=== PATIENT | male | born 1940 | race Caucasian/White ===

== ENCOUNTER → 2019-11-06 | Outpatient (CLI) | payer MEDICARE ==
[2019-11-06 10:20] LABS: HCT 46.8 % (39.0-53.0); HGB 15.5 gm/dL (13.0-17.5); MCH 31.3 pg (25.0-35.0); MCV 94.7 fL (80.0-100.0); Mean Platelet Volume 7.8; Platelet Count 229 k/uL (150-450); RBC 4.94 m/uL (4.30-5.90); RDW 12.3 % (11.5-15.5); WBC 10.1 k/uL (3.8-10.6)
[2019-11-06 10:29] LABS: Potassium 4.2 mmol/L (3.5-5.1)
== END | disposition home or self-care (01) ==
LOC: LABWHC1 09:45
PROVIDERS: ATTEND Internal Medicine Cardiovascular Disease
DX: R55 Syncope and collapse (principal)
CPT/HCPCS: 36415; 80051; 82565; 84520; 85027

== ENCOUNTER 2021-01-20 14:24 | Inpatient (IN) | payer MEDICARE ==
[2021-01-20] MEDS ORDERED: ALBUTEROL HFA INHALER INHALATION STA (14:53)
--- NOTE | 2021-01-20 15:03 | ED ---
SOB HPI - General Chief Complaint: Shortness of Breath Stated Complaint: Covid+, SOB, fall Time Seen by Provider: 01/20/21 14:24 Source: patient, EMS, RN notes reviewed, old records reviewed Mode of arrival: EMS - History of Present Illness Initial Comments: This is a 80-year-old male was brought in by EMS after suffering a syncopal episode in the bathroom today he apparently was short of breath he was swabbed last Monday 5 days ago and get results of being Covid positive yesterday. He was brought in by EMS with a cervical collar he denies any head neck or back pain a loss of function is upper or lower extremities he is feeling somewhat short of breath he has no history of asthma or COPD. No heart disease reported. MD Complaint: shortness of breath - Related Data Home Medications Medication Instructions Recorded Confirmed Albuterol Inhaler [Ventolin Hfa 2 puff INHALATION RT-QID PRN 01/20/21 01/20/21 Inhaler] Apixaban [Eliquis] 2.5 mg PO BID 01/20/21 01/20/21 Aspirin EC [Ecotrin Low Dose] 81 mg PO HS 01/20/21 01/20/21 Azithromycin [Zithromax Z-pack (6 See Taper PO DAILY 01/20/21 01/20/21 tabs)] Benzonatate [Tessalon Perles] 100 mg PO TID PRN 01/20/21 01/20/21 Latanoprost [Xalatan 0.005%] 1 drop BOTH EYES HS 01/20/21 01/20/21 Multivitamins, Thera [Multivitamin 1 tab PO DAILY 01/20/21 01/20/21 (formulary)] Valsartan [Diovan] 80 mg PO DAILY 01/20/21 01/20/21 Allergies Allergy/AdvReac Type Severity Reaction Status Date / Time No Known Allergies Allergy Verified 01/20/21 15:47 Review of Systems ROS Statement: Those systems with pertinent positive or pertinent negative responses have been documented in the HPI. ROS Other: All systems not noted in ROS Statement are negative. Past Medical History Past Medical History: No Reported History History of Any Multi-Drug Resistant Organisms: None Reported Past Surgical History: Hernia Repair Additional Past Surgical History / Comment(s): abdominal surgery 6 years ago. Past Psychological History: No Psychological Hx Reported Smoking Status: Former smoker Past Alcohol Use History: Daily Past Drug Use History: None Reported General Exam - General Exam Comments Initial Comments: This is a well-developed well-nourished awake alert oriented 3 male Sonu Coma Scale of 15 General appearance: alert, anxious Head exam: Present: atraumatic, normocephalic, normal inspection Eye exam: Present: normal appearance, PERRL, EOMI. Absent: scleral icterus, conjunctival injection, periorbital swelling ENT exam: Present: normal exam, mucous membranes moist Neck exam: Present: normal inspection, full ROM, other (No suture repair. Cervical collar was removed). Absent: tenderness, meningismus, lymphadenopathy Respiratory exam: Present: wheezes, decreased breath sounds. Absent: respirator y distress, rales, rhonchi, stridor Cardiovascular Exam: Present: regular rate, normal rhythm, normal heart sounds. Absent: systolic murmur, diastolic murmur, rubs, gallop, clicks GI/Abdominal exam: Present: soft, normal bowel sounds. Absent: distended, tenderness, guarding, rebound, rigid Extremities exam: Present: normal inspection, full ROM, normal capillary refill. Absent: tenderness, pedal edema, joint swelling, calf tenderness Back exam: Present: normal inspection Neurological exam: Present: alert, oriented X3, CN II-XII intact Psychiatric exam: Present: normal affect, normal mood Skin exam: Present: warm, dry, intact, normal color. Absent: rash Course Vital Signs 01/20/21 14:28 Temperature 100.9 F H Pulse Rate 95 Respiratory 18 Rate Blood Pressure 114/64 O2 Sat by Pulse 98 Oximetry Medical Decision Making - Medical Decision Making I did discuss the findings with the patient and with Dr. Rodriguez the patient will be admitted - Lab Data Result diagrams: 01/20/21 15:11 01/20/21 15:11 Lab Results 01/20/21 01/20/21 01/20/21 Range/Units 15:11 15:11 15:11 WBC 6.3 (3.8-10.6) k/uL RBC 4.41 (4.30-5.90) m/uL Hgb 13.6 (13.0-17.5) gm/dL Hct 38.3 L (39.0-53.0) % MCV 86.8 (80.0-100.0) fL MCH 30.8 (25.0-35.0) pg MCHC 35.4 (31.0-37.0) g/dL RDW 12.5 (11.5-15.5) % Plt Count 148 L (150-450) k/uL MPV 7.4 Neutrophils % 70 % Lymphocytes % 22 % Monocytes % 4 % Eosinophils % 0 % Basophils % 0 % Neutrophils # 4.4 (1.3-7.7) k/uL Lymphocytes # 1.4 (1.0-4.8) k/uL Monocytes # 0.2 (0-1.0) k/uL Eosinophils # 0.0 (0-0.7) k/uL Basophils # 0.0 (0-0.2) k/uL PT 11.3 (9.0-12.0) sec INR 1.1 (<1.2) APTT 26.0 (22.0-30.0) sec D-Dimer 0.26 (<0.60) mg/L FEU Sodium 118 L* (137-145) mmol/L Potassium 4.5 (3.5-5.1) mmol/L Chloride 87 L (98-107) mmol/L Carbon Dioxide 21 L (22-30) mmol/L Anion Gap 10 mmol/L BUN 15 (9-20) mg/dL Creatinine 0.72 (0.66-1.25) mg/dL Est GFR (CKD-EPI)AfAm >90 (>60 ml/min/1.73 sqM) Est GFR (CKD-EPI)NonAf 87 (>60 ml/min/1.73 sqM) Glucose 124 H (74-99) mg/dL Plasma Lactic Acid Leif (0.7-2.0) mmol/L Calcium 7.6 L (8.4-10.2) mg/dL Magnesium 1.4 L (1.6-2.3) mg/dL Total Bilirubin 0.8 (0.2-1.3) mg/dL AST 59 (17-59) U/L ALT 30 (4-49) U/L Alkaline Phosphatase 77 (38-126) U/L Lactate Dehydrogenase 672 H (313-618) U/L Creatine Kinase 504 H (55-170) U/L Troponin I (0.000-0.034) ng/mL C-Reactive Protein 31.8 H (<10.0) mg/L NT-Pro-B Natriuret Pep pg/mL Total Protein 6.5 (6.3-8.2) g/dL Albumin 3.8 (3.5-5.0) g/dL 01/20/21 01/20/21 01/20/21 Range/Units 15:11 15:11 15:11 WBC (3.8-10.6) k/uL RBC (4.30-5.90) m/uL Hgb (13.0-17.5) gm/dL Hct (39.0-53.0) % MCV (80.0-100.0) fL MCH (25.0-35.0) pg MCHC (31.0-37.0) g/dL RDW (11.5-15.5) % Plt Count (150-450) k/uL MPV Neutrophils % % Lymphocytes % % Monocytes % % Eosinophils % % Basophils % % Neutrophils # (1.3-7.7) k/uL Lymphocytes # (1.0-4.8) k/uL Monocytes # (0-1.0) k/uL Eosinophils # (0-0.7) k/uL Basophils # (0-0.2) k/uL PT (9.0-12.0) sec INR (<1.2) APTT (22.0-30.0) sec D-Dimer (<0.60) mg/L FEU Sodium (137-145) mmol/L Potassium (3.5-5.1) mmol/L Chloride (98-107) mmol/L Carbon Dioxide (22-30) mmol/L Anion Gap mmol/L BUN (9-20) mg/dL Creatinine (0.66-1.25) mg/dL Est GFR (CKD-EPI)AfAm (>60 ml/min/1.73 sqM) Est GFR (CKD-EPI)NonAf (>60 ml/min/1.73 sqM) Glucose (74-99) mg/dL Plasma Lactic Acid Leif 1.1 (0.7-2.0) mmol/L Calcium (8.4-10.2) mg/dL Magnesium (1.6-2.3) mg/dL Total Bilirubin (0.2-1.3) mg/dL AST (17-59) U/L ALT (4-49) U/L Alkaline Phosphatase (38-126) U/L Lactate Dehydrogenase (313-618) U/L Creatine Kinase (55-170) U/L Troponin I 0.012 (0.000-0.034) ng/mL C-Reactive Protein (<10.0) mg/L NT-Pro-B Natriuret Pep 737 pg/mL Total Protein (6.3-8.2) g/dL Albumin (3.5-5.0) g/dL - EKG Data -: EKG Interpreted by Me EKG Comments: Atrial fibrillation rate of 96 QRS 88 QT since QTC 342/[address]-T wave changes - Radiology Data Radiology results: report reviewed, image reviewed Disposition Clinical Impression: COVID-19, Hyponatremia syndrome, Febrile illness, acute, Chronic a-fib Disposition: ADMITTED IP TO THIS [facility] Condition: Fair Referrals: Paige Lo MD [Primary Care Provider] - 1-2 days
[2021-01-20 15:21] LABS: Basophils % (A) 0 %; Eosinophils % (A) 0 %; HCT 38.3 % (39.0-53.0); HGB 13.6 gm/dL (13.0-17.5); Lymphocytes # (A) 1.4 k/uL (1.0-4.8); Lymphocytes % (A) 22 %; MCH 30.8 pg (25.0-35.0); MCHC 35.4 g/dL (31.0-37.0); MCV 86.8 fL (80.0-100.0); Mean Platelet Volume 7.4; Monocytes # (A) 0.2 k/uL (0-1.0); Monocytes % (A) 4 %; Neutrophils # (A) 4.4 k/uL (1.3-7.7); Neutrophils % (A) 70 %; Platelet Count 148 k/uL (150-450); RBC 4.41 m/uL (4.30-5.90); RDW 12.5 % (11.5-15.5); WBC 6.3 k/uL (3.8-10.6)
[2021-01-20 15:31] LABS: ALT 30 U/L (4-49); AST 59 U/L (17-59); African American GFR (CKD) >90 (>60 ml/min/1.73 sqM); Albumin 3.8 g/dL (3.5-5.0); Alkaline Phosphatase 77 U/L (38-126); Anion Gap 10 mmol/L; Blood Urea Nitrogen 15 mg/dL (9-20); C Reactive Protein 31.8 mg/L (<10.0); Calcium 7.6 mg/dL (8.4-10.2); Carbon Dioxide 21 mmol/L (22-30); Chloride 87 mmol/L (98-107); Creatine Kinase 504 U/L (55-170); Glucose 124 mg/dL (74-99); LDH 672 U/L (313-618); Magnesium 1.4 mg/dL (1.6-2.3); Non-African American GFR(CKD) 87 (>60 ml/min/1.73 sqM); Potassium 4.5 mmol/L (3.5-5.1); Total Bilirubin 0.8 mg/dL (0.2-1.3); Total Protein 6.5 g/dL (6.3-8.2)
[2021-01-20 15:33] LABS: Sodium 118 mmol/L (137-145)
--- NOTE | 2021-01-20 15:33 | XR ---
EXAMINATION TYPE: XR chest 1V portable DATE OF EXAM: 01/20/2021 HISTORY: Shortness of breath. COMPARISON: None. TECHNIQUE: Single view of the chest is submitted. FINDINGS: Demonstrated are scattered senescent parenchymal change. Patchy perihilar and basilar infiltrates are suspicious for Covid 19 pneumonia. The heart is stable. Hilar and mediastinal structures are within normal limits. Degenerative changes are seen of the dorsal spine. IMPRESSION: 1. Patchy perihilar and basilar infiltrates are suspicious for Covid 19 pneumonia.
[2021-01-20 15:48] LABS: D-Dimer 0.26 mg/L FEU (<0.60); INR 1.1 (<1.2); Prothrombin Time 11.3 sec (9.0-12.0)
[2021-01-20] MEDS ORDERED: SODIUM CHLORIDE 0.9% 1,000 ML IV STA (16:02)
[2021-01-20] MEDS ORDERED: NALOXONE 0.4 MG/ML 1 ML VIAL IV PRN (17:32)
[2021-01-20] MEDS ORDERED: SODIUM CHLORIDE 0.9% 1,000 ML IV SCH (17:45)
--- NOTE | 2021-01-20 18:49 | CT ---
EXAMINATION TYPE: CT brain aron murry con DATE OF EXAM: 01/20/2021 COMPARISON: None HISTORY: Fall injury CT DLP: 1447.7 mGycm Automated exposure control for dose reduction was used. Images obtained of the brain and cervical spine without contrast. There is no mass effect nor midline shift. There is no sign of intracranial hemorrhage. There is some mild hypodensity in the periventricular white matter. The calvarium is intact. Skull base is intact. There is normal aeration of the mastoid sinuses. There is fairly normal alignment of the cervical vertebra. There is disc space narrowing at C5-6 and C6-7 with spurring of the endplates. Facet joints are intact. There is mild facet arthropathy in the lower cervical spine. Prevertebral soft tissues are intact. 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 No fracture. There is some evidence for some chronic small vessel ischemia. No acute intracranial abnormality.
[2021-01-20] MEDS: ALBUTEROL HFA INHALER INHALATION PRN (19:43)
[2021-01-20] MEDS ORDERED: ALPRAZolam 0.25 MG TAB PO STA (22:27)
--- NOTE | 2021-01-20 22:56 | P.HPIM ---
History of Present Illness H&P Date: 01/20/21 The patient is an 80 yo M with a PMH of Afib (on Eliquis) and HTN who was brought into the ED via EMS due to shortness of breath with syncope and fall. The patient notes that he initially developed a cough and SOB 5 days ago at which time he was tested for COVID and was subsequently told he was positive. He reports that his SOB has been gradually worsening over the past few days and that he was in the restroom today when he may have lost consciousness. He notes standing up one minute and then being in the shower. He notes however that he did not suffer any trauma from the fall and denied any pain following the fall or at time of the interview. Also denied urinary incontinence or tongue bites. Reports on-going fevers over the past few days. He denied additional complaints. Denied chest pain, nausea, vomiting, abdominal pain, diarrhea, palpitations, dizziness, weakness, or numbness. In the emergency room, the patient underwent an extensive evaluation with a CT Brain and C-spine negative for acute abnormalities. EKG was Afib @ 96 bpm. CXR revealed findings consistent with COVID-19 pneumonia. Laboratory evaluation revealed sodium 118, plt 148, CO2 21, Cl 87, Mg 1.4, Troponin 0.012, CK 504, LDH 672, and coronavirus PCR positive. Review of Systems Pertinent positives and negatives as discussed in HPI, a complete review of systems was performed and all other systems are negative. Past Medical History Past Medical History: No Reported History History of Any Multi-Drug Resistant Organisms: None Reported Past Surgical History: Hernia Repair Additional Past Surgical History / Comment(s): abdominal surgery 6 years ago. Past Psychological History: No Psychological Hx Reported Smoking Status: Former smoker Past Alcohol Use History: Daily Past Drug Use History: None Reported Medications and Allergies Home Medications Medication Instructions Recorded Confirmed Type Albuterol Inhaler [Ventolin Hfa 2 puff INHALATION RT-QID PRN 01/20/21 01/20/21 History Inhaler] Apixaban [Eliquis] 2.5 mg PO BID 01/20/21 01/20/21 History Aspirin EC [Ecotrin Low Dose] 81 mg PO HS 01/20/21 01/20/21 History Azithromycin [Zithromax Z-pack (6 See Taper PO DAILY 01/20/21 01/20/21 History tabs)] Benzonatate [Tessalon Perles] 100 mg PO TID PRN 01/20/21 01/20/21 History Latanoprost [Xalatan 0.005%] 1 drop BOTH EYES HS 01/20/21 01/20/21 History Multivitamins, Thera [Multivitamin 1 tab PO DAILY 01/20/21 01/20/21 History (formulary)] Valsartan [Diovan] 80 mg PO DAILY 01/20/21 01/20/21 History Allergies Allergy/AdvReac Type Severity Reaction Status Date / Time No Known Allergies Allergy Verified 01/20/21 15:47 Physical Exam Vitals: Vital Signs Temp Pulse Resp BP Pulse Ox 01/20/21 20:31 99.8 F H 87 22 135/89 98 01/20/21 17:56 85 18 138/99 97 01/20/21 14:28 100.9 F H 95 18 114/64 98 Intake and Output 01/20/21 01/20/21 01/20/21 06:59 14:59 22:59 Other: Weight 90.718 kg General: ill appearing male, in mild to moderate respiratory distress, appears at stated age, obese Derm: no unusual rashes/lesions no unusual ecchymoses, warm, dry Head: atraumatic, normocephalic, symmetric Eyes: EOMI, no lid lag, anicteric sclera, pupils equal round reactive to light ENT: Nose and ears atraumatic, no thrush, no pharyngeal erythema Neck: No thyromegaly, no cervical lymphadenopathy, trachea midline, supple Mouth: no lip lesion, mucus membranes moist Cardiovascular: S1S2 reg, no murmur, positive posterior tibial pulse bilateral, no edema, capillary refill less than 2 seconds Lungs: Diffuse bilateral ronchi, no rales, some accessory muscle use Abdominal: soft, nontender to palpation, no guarding, no appreciable organomega ly, normal bowel sounds Ext: no gross muscle atrophy, muscle strength 5 out of 5 in all 4 extremities grossly, no contractures, Neuro: CN II-XI grossly intact, light touch intact all 4 extremities, finger to nose within normal limits, Psych: Alert, oriented, appropriate affect Results CBC & Chem 7: 01/20/21 15:11 01/20/21 15:11 Labs: Abnormal Lab Results - Last 24 Hours (Table) 01/20/21 01/20/21 01/20/21 Range/Units 15:11 15:11 18:40 Hct 38.3 L (39.0-53.0) % Plt Count 148 L (150-450) k/uL Sodium 118 L* (137-145) mmol/L Chloride 87 L (98-107) mmol/L Carbon Dioxide 21 L (22-30) mmol/L Glucose 124 H (74-99) mg/dL Calcium 7.6 L (8.4-10.2) mg/dL Magnesium 1.4 L (1.6-2.3) mg/dL Lactate Dehydrogenase 672 H (313-618) U/L Creatine Kinase 504 H (55-170) U/L C-Reactive Protein 31.8 H (<10.0) mg/L Coronavirus (PCR) Detected A (Not Detectd) Assessment and Plan Plan: COVID-19 Pnuemonia with acute hypoxic respiratory failure -Hold off on Decadron due to severe hyponatremia -Pulmonary consult -Supplemental oxygen -C/w Eliquis Severe hyponatremia, possibly symptomatic -Check urine electrolytes, creatinine, and osmolarity -Patient received 1 L NS bolus in ED and subsequently 130 ml/hr -Hold off on further IVFs at this time -Goal correction of no more than 8 mEq/L in first 24 hours -Check stat BMP and continue to monitor q4-6 hours -Discussed plan with RN Syncope with fall, possible orthostatic vs less likely seizure (in setting of severe hyponatremia) -Low suspicion for seizure due to no reported post-ictal confusion, tongue bite, urinary incontinence, or trauma -C/w fall precautions -Cardiac monitoring -C/w hyponatremia treatment as above -Neurochecks Hypomagnasemia -Replace and monitor Chronic conditions: Afib, HTN -C/w home eliquis and losartan DVT prophylaxis -Eliquis The patient is admitted with an anticipated greater than 2 midnight stay for evaluation of COVID CODE STATUS: No Code Discussed with: Patient Anticipated discharge date: 4-[address]: Home A total of 40 minutes was spent on the care of this complex patient more than 50% of the time was spent in counseling and care coordination.
[2021-01-20] MEDS: APIXABAN 2.5 MG TABLET PO SCH (23:04)
[2021-01-20] MEDS: ASPIRIN 81 MG PO SCH (23:04)
[2021-01-20] MEDS: LATANOPROST 0.005% OPHTH DROPS 2.5 ML BTL BOTH EYES SCH (23:04)
[2021-01-20] MEDS: ACETAMINOPHEN TAB 325 MG TAB PO PRN (23:08)
[2021-01-20 23:20] LABS: African American GFR (CKD) >90 (>60 ml/min/1.73 sqM); Anion Gap 12 mmol/L; Blood Urea Nitrogen 14 mg/dL (9-20); Calcium 7.2 mg/dL (8.4-10.2); Carbon Dioxide 19 mmol/L (22-30); Chloride 89 mmol/L (98-107); Glucose 107 mg/dL (74-99); Non-African American GFR(CKD) 88 (>60 ml/min/1.73 sqM); Potassium 4.3 mmol/L (3.5-5.1); Sodium 120 mmol/L (137-145)
[2021-01-21] MEDS: MAGNESIUM SULFATE-D5W PMX 1 GM in DEXTROSE/WATER 1 100ML.BAG IVPB SCH ×2 (00:48→02:00)
[2021-01-21] MEDS: ALBUTEROL HFA INHALER INHALATION PRN ×2 (00:50→07:57)
[2021-01-21 01:40] LABS: Ferritin 221.1 ng/mL (22.0-322.0)
[2021-01-21 03:26] LABS: Glucose,Whole Blood 123 mg/dL (75-99)
[2021-01-21 06:00] LABS: Creatinine,Urine Random 84.7 mg/dL
[2021-01-21] MEDS ORDERED: AZITHROMYCIN 250 MG TAB PO SCH (09:00)
[2021-01-21] MEDS: VALSARTAN 80 MG TAB PO SCH (09:09)
[2021-01-21] MEDS: APIXABAN 2.5 MG TABLET PO SCH ×2 (09:09→20:05)
[2021-01-21] MEDS: MULTIVITAMINS, THERA 1 EACH TAB PO SCH (09:09)
--- NOTE | 2021-01-21 10:43 | P.NPCON ---
History of Present Illness - Reason for Consult hyponatremia - History of Present Illness Reason for consultation: Hyponatremia History of present illness: Patient is a 80-year-old male seen in consultation for hyponatremia. Patient presented to the hospital after he sustained a syncopal episode at home. He was found by his daughter subsequently brought to the hospital. Patient's sodium level was noted to be low at 118. He did receive 1 L bolus of normal saline in the ER. He is currently not on any IV fluids. He admits to 1 episode of vomiting yesterday but none since. His appetite hasn't been that good. He does admit to drinking quite a bit of water. Not on any diuretics. No history of malignancy. Has been voiding. No hematuria or dysuria. No history of kidney disease. Creatinine 0.71 as of yesterday. Most recent sodium level 120 as of yesterday at 11:44 PM. Blood pressure is stable. No evidence of orthostatic hypotension. He did test positive for Covid-19. Currently on 4 L nasal cannula. Chest x-ray suggestive of pneumonia. No edema. Vital signs are stable. General: The patient appeared well nourished and normally developed. HEENT: Head exam is unremarkable. Neck is without jugular venous distension. LUNGS: Breath sounds decreased. HEART: Rate and Rhythm are regular. ABDOMEN: Soft, nontender. EXTREMITITES: No edema. Past Medical History Past Medical History: No Reported History History of Any Multi-Drug Resistant Organisms: None Reported Past Surgical History: Hernia Repair Additional Past Surgical History / Comment(s): abdominal surgery 6 years ago. Past Anesthesia/Blood Transfusion Reactions: No Reported Reaction Past Psychological History: No Psychological Hx Reported Smoking Status: Former smoker Past Alcohol Use History: Daily Past Drug Use History: None Reported Medications and Allergies Home Medications Medication Instructions Recorded Confirmed Type Albuterol Inhaler [Ventolin Hfa 2 puff INHALATION RT-QID PRN 01/20/21 01/20/21 History Inhaler] Apixaban [Eliquis] 2.5 mg PO BID 01/20/21 01/20/21 History Aspirin EC [Ecotrin Low Dose] 81 mg PO HS 01/20/21 01/20/21 History Azithromycin [Zithromax Z-pack (6 See Taper PO DAILY 01/20/21 01/20/21 History tabs)] Benzonatate [Tessalon Perles] 100 mg PO TID PRN 01/20/21 01/20/21 History Latanoprost [Xalatan 0.005%] 1 drop BOTH EYES HS 01/20/21 01/20/21 History Multivitamins, Thera [Multivitamin 1 tab PO DAILY 01/20/21 01/20/21 History (formulary)] Valsartan [Diovan] 80 mg PO DAILY 01/20/21 01/20/21 History Allergies Allergy/AdvReac Type Severity Reaction Status Date / Time No Known Allergies Allergy Verified 01/20/21 15:47 Physical Exam Vitals: Vital Signs Temp Pulse Pulse Pulse Pulse Pulse Resp 01/21/21 08:00 99.1 F 87 24 01/21/21 05:42 94 98 84 01/21/21 04:00 98.5 F 81 28 H 01/21/21 00:50 01/21/21 00:00 100.1 F H 89 32 H 01/20/21 20:55 101.1 F H 93 30 H 01/20/21 20:31 99.8 F H 87 22 01/20/21 17:56 85 18 01/20/21 14:28 100.9 F H 95 18 BP BP BP BP BP Pulse Ox 01/21/21 08:00 158/84 99 01/21/21 05:42 146/83 151/73 128/76 01/21/21 04:00 153/96 98 01/21/21 00:50 97 01/21/21 00:00 155/107 97 01/20/21 20:55 143/84 96 01/20/21 20:31 135/89 98 01/20/21 17:56 138/99 97 01/20/21 14:28 114/64 98 Intake and Output 01/20/21 01/21/21 01/21/21 22:59 06:59 14:59 Intake Total 300 Output Total 300 350 Balance -300 -50 Intake: Oral 300 Output: Urine 300 350 Other: Voiding Method Urinal Urinal # Voids 1 Weight 90.718 kg 95.5 kg Results - Lab Results Most recent lab results Calcium 7.2 mg/dL (8.4-10.2) L 01/20/21 22:30 Magnesium 1.4 mg/dL (1.6-2.3) L 01/20/21 15:11 01/20/21 15:11 01/20/21 22:30 Assessment and Plan Plan: Assessment: 1. Hyponatremia. Appears euvolemic. Status post 1 L of normal saline on admission. 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 Urine osmolality 429. Urine sodium pending. Sodium level CXX as of last night. 2. Cord 19 pneumonia. 3. Benign hypertension. Controlled. 4. Metabolic acidosis. Likely compensatory for respiratory alkalosis. 5. Syncopal episode with fall. Plan: 1200 mL fluid restriction. Encouraged oral intake, particularly protein. Follow-up urine sodium level. Follow-up morning labs. Check TSH. Check bladder scan to rule out urinary retention. Follow-up echocardiogram. Thank you for the consultation. I will continue to follow the patient with you during his hospital stay.
[2021-01-21 10:54] LABS: HCT 36.7 % (39.0-53.0); HGB 13.3 gm/dL (13.0-17.5); MCH 31.7 pg (25.0-35.0); MCHC 36.2 g/dL (31.0-37.0); MCV 87.4 fL (80.0-100.0); Mean Platelet Volume 7.5; Platelet Count 158 k/uL (150-450); RDW 12.6 % (11.5-15.5); WBC 6.4 k/uL (3.8-10.6)
[2021-01-21] MEDS ORDERED: DEXAMETHASONE SOD PHOSPHATE 10 MG/ML 1 ML VIAL IV ONE (11:00)
--- NOTE | 2021-01-21 11:00 | ECHOF ---
Referral Reason:fall MEASUREMENTS -------- HEIGHT: 165.1 cm WEIGHT: 90.7 kg BP: IVSd: 1.5 cm (0.6 - 1.1) LVIDd: 5.0 cm (3.9 - 5.3) LVPWd: 1.4 cm (0.6 - 1.1) IVSs: 1.8 cm LVIDs: 3.5 cm LVPWs: 1.2 cm LA Diam: 4.0 cm (2.7 - 3.8) LAESV Index (A-L): 42.44 ml/m Ao Diam: 3.3 cm (2.0 - 3.7) RAP: 5.00 mmHg RVSP: 43.88 mmHg FINDINGS -------- Sinus rhythm. Pt is positive for Covid. This was a techncally difficult study with suboptimal views, , Lumason utilized for enhancement of im ages. The left ventricular size is normal. There is mild concentric left ventricular hypertrophy. Overa ll left ventricular systolic function is normal with, an EF between 55 - 60 %. The right ventricle is normal in size. LA is moderately dilated 34-39 ml/m2 The right atrial size is normal. There is mild aortic valve sclerosis. There is no evidence of aortic regurgitation. Mild mitral regurgitation is present. Mild tricuspid regurgitation present. There is mild pulmonary hypertension. Trace/mild (physiologic) pulmonic regurgitation. The aortic root size is normal. Echo free space represents a pericardial fat pad. CONCLUSIONS -------- 1. Pt is positive for Covid. 2. This was a techncally difficult study with suboptimal views, , Lumason utilized for enhancement of images. 3. The left ventricular size is normal. 4. Overall left ventricular systolic function is normal with, an EF between 55 - 60 %. 5. The right ventricle is normal in size. 6. LA is moderately dilated 34-39 ml/m2 7. The right atrial size is normal. 8. There is mild aortic valve sclerosis. 9. Mild mitral regurgitation is present. 10. Mild tricuspid regurgitation present. 11. There is mild pulmonary hypertension. 12. Trace/mild (physiologic) pulmonic regurgitation. 13. The aortic root size is normal. 14. Echo free space represents a pericardial fat pad. DATER ASSEMBLER: Shani Reynoso RDCS
[2021-01-21] MEDS: CHOLECALCIFEROL 25 MCG (1000 IU) TABLET PO SCH (11:12)
[2021-01-21] MEDS: ZINC SULFATE 220 MG CAP PO SCH (11:12)
[2021-01-21] MEDS: BENZONATATE 100 MG CAP PO PRN ×2 (11:12→22:43)
[2021-01-21] MEDS: ASCORBIC ACID 500 MG TAB PO SCH (11:12)
[2021-01-21 11:16] LABS: African American GFR (CKD) >90 (>60 ml/min/1.73 sqM); Anion Gap 10 mmol/L; Blood Urea Nitrogen 13 mg/dL (9-20); Calcium 7.4 mg/dL (8.4-10.2); Carbon Dioxide 22 mmol/L (22-30); Chloride 89 mmol/L (98-107); Glucose 111 mg/dL (74-99); Magnesium 2.1 mg/dL (1.6-2.3); Non-African American GFR(CKD) 87 (>60 ml/min/1.73 sqM); Potassium 4.4 mmol/L (3.5-5.1); Sodium 121 mmol/L (137-145)
[2021-01-21] MEDS ORDERED: FUROSEMIDE 10 MG/ML 2 ML VIAL IV ONE ×2 (11:37→17:40)
[2021-01-21] MEDS: ALBUTEROL HFA INHALER INHALATION SCH ×3 (11:38→20:28)
[2021-01-21] MEDS ORDERED: REMDESIVIR 200 MG in SODIUM CHLORIDE 0.9% 250 ML IVPB ONE (12:00)
--- NOTE | 2021-01-21 16:23 | P.CNPUL ---
History of Present Illness Consult date: 01/21/21 Reason for consult: pneumonia Chief complaint: Syncope, and follow-up History of present illness: This is an 80-year-old white male with history of atrial fibrillation, maintained on anticoagulations therapy,/elquis, patient was brought into the emergency room with mostly multiple complaints including fall and syncope, he has been coughing and shortness of breath for the last 5 days. Patient was tested for silveira virus, and he had a positive PCR. Chest x-ray on admission showed bilateral infiltrates. Patient was admitted, and I was asked to see him on consultation. The patient himself is not a great historian, has been seen by many consultants and since this admission, and I believe the patient was noted to have low sodium of 118 low magnesium of 1.4, his LDH was 672. WBC count 6.4 hemoglobin is 13.3. Renal profile is normal. His urine osmolality was noted to be elevated. And his urine random creatinine was 84.7. Serum osmolality was 251. Review of Systems ROS unobtainable: due to mental status (Patient is not a great historian. History was obtained from the patient by bits and pieces.) Past Medical History Past Medical History: No Reported History History of Any Multi-Drug Resistant Organisms: None Reported Past Surgical History: Hernia Repair Additional Past Surgical History / Comment(s): abdominal surgery 6 years ago. Past Anesthesia/Blood Transfusion Reactions: No Reported Reaction Past Psychological History: No Psychological Hx Reported Smoking Status: Former smoker Past Alcohol Use History: Daily Past Drug Use History: None Reported Medications and Allergies Home Medications Medication Instructions Recorded Confirmed Type Albuterol Inhaler [Ventolin Hfa 2 puff INHALATION RT-QID PRN 01/20/21 01/20/21 History Inhaler] Apixaban [Eliquis] 2.5 mg PO BID 01/20/21 01/20/21 History Aspirin EC [Ecotrin Low Dose] 81 mg PO HS 01/20/21 01/20/21 History Azithromycin [Zithromax Z-pack (6 See Taper PO DAILY 01/20/21 01/20/21 History tabs)] Benzonatate [Tessalon Perles] 100 mg PO TID PRN 01/20/21 01/20/21 History Latanoprost [Xalatan 0.005%] 1 drop BOTH EYES HS 01/20/21 01/20/21 History Multivitamins, Thera [Multivitamin 1 tab PO DAILY 01/20/21 01/20/21 History (formulary)] Valsartan [Diovan] 80 mg PO DAILY 01/20/21 01/20/21 History Allergies Allergy/AdvReac Type Severity Reaction Status Date / Time No Known Allergies Allergy Verified 01/20/21 15:47 Physical Exam Vitals: Vital Signs Temp Pulse Pulse Pulse Pulse Pulse Resp 01/21/21 11:39 98 F 88 30 H 01/21/21 08:00 99.1 F 87 24 01/21/21 05:42 94 98 84 01/21/21 04:00 98.5 F 81 28 H 01/21/21 00:50 01/21/21 00:00 100.1 F H 89 32 H 01/20/21 20:55 101.1 F H 93 30 H 01/20/21 20:31 99.8 F H 87 22 01/20/21 17:56 85 18 BP BP BP BP BP Pulse Ox 01/21/21 11:39 157/75 93 L 01/21/21 08:00 158/84 99 01/21/21 05:42 146/83 151/73 128/76 01/21/21 04:00 153/96 98 01/21/21 00:50 97 01/21/21 00:00 155/107 97 01/20/21 20:55 143/84 96 01/20/21 20:31 135/89 98 01/20/21 17:56 138/99 97 Intake and Output 01/21/21 01/21/21 01/21/21 06:59 14:59 22:59 Intake Total 540 Output Total 300 350 Balance -300 190 Intake: Oral 540 Output: Urine 300 350 Other: Voiding Method Urinal Urinal # Voids 1 Weight 95.5 kg Physical Exam: Revealed a 80-year-old white male in [id number] respiratory distress. Patient is on 4 L nasal cannula and his O2 saturation is 93% Head: Atraumatic, normocephalic. HEENT:[Neck is supple.] [No neck masses.] [No thyromegaly.] [No JVD.] Chest: [Fine crackles at the bases bilaterally. Cardiac Exam: [Normal S1 and S2, no S3 gallop, no murmur.] Abdomen: [Soft, nontender, no megaly, no rebound, no guarding, normal bowel sounds.] Extremities: [No clubbing, no edema, no cyanosis.] Neurological Exam: Arousable, oriented times place, and time, patient could not give an adequate history except the fact that he fell and has not been feeling well for the last 5 days. Psychiatric: Normal mood affect and confused mental status. Results - Laboratory Findings CBC and BMP: 01/21/21 10:10 01/21/21 10:10 PT/INR, D-dimer PT 11.3 sec (9.0-12.0) 01/20/21 15:11 INR 1.1 (<1.2) 01/20/21 15:11 D-Dimer 0.26 mg/L FEU (<0.60) 01/20/21 15:11 Abnormal lab findings: Abnormal Labs 01/20/21 01/20/21 01/20/21 15:11 15:11 18:40 RBC Hct 38.3 L Plt Count 148 L Sodium 118 L* Chloride 87 L Carbon Dioxide 21 L Glucose 124 H POC Glucose (mg/dL) Osmolality Calcium 7.6 L Magnesium 1.4 L Lactate Dehydrogenase 672 H Creatine Kinase 504 H C-Reactive Protein 31.8 H Coronavirus (PCR) Detected A 01/20/21 01/21/21 01/21/21 22:30 03:05 10:10 RBC 4.20 L Hct 36.7 L Plt Count Sodium 120 L Chloride 89 L Carbon Dioxide 19 L Glucose 107 H POC Glucose (mg/dL) 123 H Osmolality 251 L Calcium 7.2 L Magnesium Lactate Dehydrogenase Creatine Kinase C-Reactive Protein Coronavirus (PCR) 01/21/21 10:10 RBC Hct Plt Count Sodium 121 L Chloride 89 L Carbon Dioxide Glucose 111 H POC Glucose (mg/dL) Osmolality Calcium 7.4 L Magnesium Lactate Dehydrogenase Creatine Kinase C-Reactive Protein Coronavirus (PCR) - Diagnostic Findings Chest x-ray: image reviewed (As noted in HPI) Assessment and Plan Assessment: Impression: Acute hypoxic respiratory failure secondary to covid 19 pneumonia. Severe hyponatremia, I believe it is hypovolemic hyponatremia Syncope and fall most likely related to his hypoxia and hyponatremia Chronic atrial fibrillation. Benign essential hypertension. Recommendation: Continue present treatment plan including ascorbic acid,eliquis REM, zinc, IV fluids, Agree with holding diuretics, Resume Decadron. Titrate oxygen accordingly. We'll continue to follow. Time with Patient: Greater than 30
--- NOTE | 2021-01-21 16:28 | P.PN ---
Subjective Progress Note Date: 01/21/21 (delayed charting seen at 1030) Principal diagnosis: weakness Dr. Powell is an 80 yo M with Afib anticoagulated on Eliquis and HTN who was brought into the ED via EMS due to shortness of breath with syncope and fall. 5 days ago he developed a cough at which time he was tested for COVID, known exposure at [facility] [place] [facility], and was subsequently told he was positive. He underwent an extensive evaluation with a CT head and C-spine negative for acute abnormalities. EKG demonstrated Afib. CXR revealed findings consistent with COVID-19 pneumonia. Laboratory evaluation revealed sodium 118, plt 148, CO2 21, Cl 87, Mg 1.4, Troponin 0.012, CK 504, LDH 672, and coronavirus PCR positive. He was given 1L of IVF in the ED and admitted for further monitoring and care. 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 He was started on decadron and Remdesivir on 01/21 due to requiing 4L NC and active wheezing. Pulmonary was consulted. Echo with EF 5-60% and no significant valvular dysfunction. Patient seen and examined at bedside. He complains of fatigue, decreased appetite, and shortness of breath that is worse with exertion and better with rest. He denies any light headness or dizziness. General: ill appearing, mild distress due to dyspnea,appears at stated age Derm: warm, dry Head: atraumatic, normocephalic, symmetric Eyes: EOMI, no lid lag, anicteric sclera Mouth: no lip lesion, mucus membranes dry Cardiovascular: S1S2 reg, no murmur, positive posterior tibial pulse bilateral, Lungs: wheeze bilateral, + 3 word conversation dyspnea, + accessory muscle use Abdominal: soft, nontender to palpation, no guarding, no appreciable organomegaly Ext: no gross muscle atrophy, no edema, no contractures Neuro: CN II-XI grossly intact, no focal neuro deficits Psych: Alert, oriented, appropriate affect Hyponatremia, likely due to SIADH - D/W nephrology, fluid restriction, lasix - follow sodium levels - Await urine sodium level - await TSH and post void residuals COVID 19 pneumonitis with Acute Hypoxic Respiratory failure - Decadron, ordered 1st does of Remdesivir and Pulm will need to continue - Await pulm recs - scheduled and prn bronchodilators - zinc, vit C, vit D, pepcid due to steroids Syncope - tele - Echo with EF 55-60% and no significant valvular disease - follow orthostatics A fib without RVR - eliquis - not on rate controlling medications HTN controlled - follow BP - ARB DVT prophylaxis: Eliquis Discussed with: patient, nursing Anticipated discharge: 2-[address]: home with home health A total of 65 minutes was spent on the care of this complex patient more than 50% of the time was spent in counseling and care coordination. Objective - Vital Signs Vital signs: Vital Signs Temp 98 F 01/21/21 11:39 Pulse 88 01/21/21 11:39 Resp 30 H 01/21/21 11:39 BP 157/75 01/21/21 11:39 Pulse Ox 93 L 01/21/21 11:39 Intake & Output 01/20/21 01/21/21 01/21/21 18:59 06:59 18:59 Intake Total 540 Output Total 300 350 Balance -300 190 Weight 90.718 kg 95.5 kg Intake: Oral 540 Output: Urine 300 350 Other: Voiding Method Urinal Urinal # Voids 1 - Labs CBC & Chem 7: 01/21/21 10:10 01/21/21 10:10 Labs: Abnormal Lab Results - Last 24 Hours (Table) 01/20/21 01/20/21 01/21/21 Range/Units 18:40 22:30 03:05 RBC (4.30-5.90) m/uL Hct (39.0-53.0) % Sodium 120 L (137-145) mmol/L Chloride 89 L (98-107) mmol/L Carbon Dioxide 19 L (22-30) mmol/L Glucose 107 H (74-99) mg/dL POC Glucose (mg/dL) 123 H (75-99) mg/dL Osmolality 251 L (280-301) mosm/kg Calcium 7.2 L (8.4-10.2) mg/dL Coronavirus (PCR) Detected A (Not Detectd) 01/21/21 01/21/21 Range/Units 10:10 10:10 RBC 4.20 L (4.30-5.90) m/uL Hct 36.7 L (39.0-53.0) % Sodium 121 L (137-145) mmol/L Chloride 89 L (98-107) mmol/L Carbon Dioxide (22-30) mmol/L Glucose 111 H (74-99) mg/dL POC Glucose (mg/dL) (75-99) mg/dL Osmolality (280-301) mosm/kg Calcium 7.4 L (8.4-10.2) mg/dL Coronavirus (PCR) (Not Detectd)
[2021-01-21] MEDS: FAMOTIDINE 20 MG TAB PO SCH (17:37)
[2021-01-21] MEDS: ASPIRIN 81 MG PO SCH (20:05)
[2021-01-21] MEDS: LATANOPROST 0.005% OPHTH DROPS 2.5 ML BTL BOTH EYES SCH (22:43)
[2021-01-22] MEDS: ACETAMINOPHEN TAB 325 MG TAB PO PRN (03:14)
[2021-01-22] MEDS: CHOLECALCIFEROL 25 MCG (1000 IU) TABLET PO SCH (08:07)
[2021-01-22] MEDS: MULTIVITAMINS, THERA 1 EACH TAB PO SCH (08:07)
[2021-01-22] MEDS: APIXABAN 2.5 MG TABLET PO SCH ×2 (08:07→20:20)
[2021-01-22] MEDS: ZINC SULFATE 220 MG CAP PO SCH (08:08)
[2021-01-22] MEDS: ASCORBIC ACID 500 MG TAB PO SCH (08:08)
[2021-01-22] MEDS: dexAMETHasone 2 MG TAB PO SCH (08:08)
[2021-01-22] MEDS: FAMOTIDINE 20 MG TAB PO SCH (08:08)
[2021-01-22] MEDS: VALSARTAN 80 MG TAB PO SCH (08:08)
[2021-01-22] MEDS: ALBUTEROL HFA INHALER INHALATION SCH ×4 (09:16→20:35)
[2021-01-22 09:29] LABS: HGB 13.5 gm/dL (13.0-17.5); MCH 31.1 pg (25.0-35.0); MCHC 35.4 g/dL (31.0-37.0); MCV 87.7 fL (80.0-100.0); Mean Platelet Volume 7.6; Platelet Count 186 k/uL (150-450); RBC 4.33 m/uL (4.30-5.90); RDW 12.6 % (11.5-15.5)
[2021-01-22 09:34] LABS: Potassium 4.5 mmol/L (3.5-5.1)
[2021-01-22 09:37] LABS: ALT 41 U/L (4-49); AST 93 U/L (17-59); African American GFR (CKD) >90 (>60 ml/min/1.73 sqM); Albumin 3.8 g/dL (3.5-5.0); Alkaline Phosphatase 69 U/L (38-126); Anion Gap 11 mmol/L; Blood Urea Nitrogen 22 mg/dL (9-20); C Reactive Protein 50.8 mg/L (<10.0); Calcium 7.8 mg/dL (8.4-10.2); Carbon Dioxide 25 mmol/L (22-30); Chloride 87 mmol/L (98-107); Glucose 131 mg/dL (74-99); LDH 1063 U/L (313-618); Non-African American GFR(CKD) 81 (>60 ml/min/1.73 sqM); Sodium 123 mmol/L (137-145); Total Bilirubin 0.9 mg/dL (0.2-1.3); Total Protein 6.4 g/dL (6.3-8.2)
[2021-01-22] MEDS: FINASTERIDE 5 MG TAB PO SCH (10:25)
[2021-01-22] MEDS: TAMSULOSIN 0.4 MG CAP.ER.24H PO SCH (10:25)
--- NOTE | 2021-01-22 10:52 | P.PN ---
Subjective Patient is seen in follow-up for hyponatremia. Sodium level up to 123 this morning. Patient did have urinary retention last night and required straight catheterization with over 500 mL urine obtained. He has history of BPH and Flomax has been resumed. Still hasn't voided on his own this morning. Vital signs are stable. General: The patient appeared well nourished and normally developed. HEENT: Head exam is unremarkable. Neck is without jugular venous distension. LUNGS: Breath sounds decreased. HEART: Rate and Rhythm are regular. ABDOMEN: Soft, nontender. EXTREMITITES: No edema. Objective - Vital Signs Vital signs: Vital Signs Temp 97.7 F 01/22/21 08:00 Pulse 76 01/22/21 08:00 Resp 22 01/22/21 08:00 BP 125/74 01/22/21 08:00 Pulse Ox 98 01/22/21 08:00 Intake & Output 01/21/21 01/22/21 01/22/21 18:59 06:59 18:59 Intake Total 780 50 Output Total 700 750 Balance 80 -700 Weight 92 kg Intake: Oral 780 50 Output: Urine 700 750 Other: Voiding Method Urinal Urinal Diaper # Voids 1 # Bowel Movements 1 - Labs CBC & Chem 7: 01/22/21 08:46 01/22/21 08:46 Labs: Abnormal Lab Results - Last 24 Hours (Table) 01/21/21 01/21/21 01/21/21 Range/Units 10:10 10:10 17:03 RBC 4.20 L (4.30-5.90) m/uL Hct 36.7 L (39.0-53.0) % Sodium 121 L 121 L (137-145) mmol/L Chloride 89 L (98-107) mmol/L BUN (9-20) mg/dL Glucose 111 H (74-99) mg/dL Calcium 7.4 L (8.4-10.2) mg/dL AST (17-59) U/L Lactate Dehydrogenase (313-618) U/L C-Reactive Protein (<10.0) mg/L 01/22/21 01/22/21 Range/Units 08:46 08:46 RBC (4.30-5.90) m/uL Hct 38.0 L (39.0-53.0) % Sodium 123 L (137-145) mmol/L Chloride 87 L (98-107) mmol/L BUN 22 H (9-20) mg/dL Glucose 131 H (74-99) mg/dL Calcium 7.8 L (8.4-10.2) mg/dL AST 93 H (17-59) U/L Lactate Dehydrogenase 1063 H (313-618) U/L C-Reactive Protein 50.8 H (<10.0) mg/L Assessment and Plan Plan: Assessment: 1. Hyponatremia. Appears euvolemic. Status post 1 L of normal saline on admission. 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 Urine osmolality 429. Urine sodium 42. Sodium level 123 this morning. TSH normal. 2. Cord 19 pneumonia. Maintained on steroids and zinc. Also receiving remdesivir. 3. Benign hypertension. Controlled. 4. Metabolic acidosis. Likely compensatory for respiratory alkalosis. Impr anitha. 5. Syncopal episode with fall. 6. BPH with urinary retention. Plan: 1200 mL fluid restriction. Encouraged oral intake, particularly protein. Flomax resumed. Echocardiogram noted. Preserved ejection fraction. Monitor bladder scans closely and insert Powers catheter if persistently greater than 250 mL urine present. Repeat sodium level this afternoon. If not improving, I will give him a dose of Samsca.
--- NOTE | 2021-01-22 14:48 | P.PN ---
Subjective Progress Note Date: 01/22/21 ([facility] charting seen at 0930) Principal diagnosis: weakness Mr. Powell is an 80 yo M with Afib anticoagulated on Eliquis and HTN who was brought into the ED via EMS due to shortness of breath with syncope and fall. 5 days ago he developed a cough at which time he was tested for COVID, known exposure at [facility] [place] [facility], and was subsequently told he was positive. He underwent an extensive evaluation with a CT head and C-spine negative for acute abnormalities. EKG demonstrated Afib. CXR revealed findings consistent with COVID-19 pneumonia. Laboratory evaluation revealed sodium 118, plt 148, CO2 21, Cl 87, Mg 1.4, Troponin 0.012, CK 504, LDH 672, and coronavirus PCR positive. He was given 1L of IVF in the ED and admitted for further monitoring and care. 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 He was started on decadron and Remdesivir on 01/21 due to requiring 4L NC and active wheezing. Pulmonary was consulted. Echo with EF 5-60% and no significant valvular dysfunction.consulting his hospital stay. He was evaluated by physical and occupational therapy and did well. His breathing had improvement morning of 01/22 but he was still requiring 4 L nasal cannula. Sodium remained relatively unchanged. Patient did require straight cath 1 overnight secondary to urinary retention. Patient seen and examined at bedside. he is feeling better today than yesterday. Breathing is slightly easier. No nausea. No vomiting. Continues to have decreased appetite General: ill appearing, mild distress due to dyspnea,appears at stated age Derm: warm, dry Head: atraumatic, normocephalic, symmetric Eyes: EOMI, no lid lag, anicteric sclera Mouth: no lip lesion, mucus membranes dry Cardiovascular: S1S2 reg, no murmur, positive posterior tibial pulse bilateral, Lungs: + wheeze bilateral bases, no conversational dyspnea, no accessory muscle use Abdominal: soft, nontender to palpation, no guarding, no appreciable organomegaly Ext: no gross muscle atrophy, no edema, no contractures Neuro: CN II-XI grossly intact, no focal neuro deficits Psych: Alert, oriented, appropriate affect Hyponatremia, likely due to SIADH - D/W nephrology, fluid restriction, lasix - follow sodium levels - TSH normal - Patient patient's home Flomax and Proscar were not listed on his medications, resumed today - repeat sodium at 1500 if not continuing to improve samsca COVID 19 pneumonitis with Acute Hypoxic Respiratory failure - Decadron, ordered 1st does of Remdesivir - Pulm recs appreciated - scheduled and prn bronchodilators - zinc, vit C, vit D, pepcid due to steroids BPH -Resume home Flomax and finasteride. Syncope - tele - Echo with EF 55-60% and no significant valvular disease - follow orthostatics A fib without RVR - eliquis - not on rate controlling medications HTN controlled - follow BP - ARB DVT prophylaxis: Eliquis Discussed with: patient, nursing Anticipated discharge: 2-[address]: home with home health A total of 35 minutes was spent on the care of this complex patient more than 50% of the time was spent in counseling and care coordination. Objective - Vital Signs Vital signs: Vital Signs Temp 97.7 F 01/22/21 08:00 Pulse 76 01/22/21 08:00 Resp 22 01/22/21 08:00 BP 125/74 01/22/21 08:00 Pulse Ox 98 01/22/21 08:00 Intake & Output 01/21/21 01/22/21 01/22/21 18:59 06:59 18:59 Intake Total 780 50 240 Output Total 700 750 600 Balance 80 -700 -360 Weight 92 kg Intake: Oral 780 50 240 Output: Urine 700 750 600 Straight 600 Other: Voiding Method Urinal Urinal Diaper # Voids 1 # Bowel Movements 1 - Labs CBC & Chem 7: 01/22/21 08:46 01/22/21 08:46 Labs: Abnormal Lab Results - Last 24 Hours (Table) 01/21/21 01/22/21 01/22/21 Range/Units 17:03 08:46 08:46 Hct 38.0 L (39.0-53.0) % Sodium 121 L 123 L (137-145) mmol/L Chloride 87 L (98-107) mmol/L BUN 22 H (9-20) mg/dL Glucose 131 H (74-99) mg/dL Calcium 7.8 L (8.4-10.2) mg/dL AST 93 H (17-59) U/L Lactate Dehydrogenase 1063 H (313-618) U/L C-Reactive Protein 50.8 H (<10.0) mg/L
[2021-01-22] MEDS: REMDESIVIR 100 MG in SODIUM CHLORIDE 0.9% 250 ML IVPB SCH (14:51)
--- NOTE | 2021-01-22 17:12 | P.PN ---
Subjective Progress Note Date: 01/22/21 Principal diagnosis: Acute hypoxic respiratory failure secondary to acute covid 19 pneumonia This is an 80-year-old white male with history of atrial fibrillation, maintained on anticoagulations therapy,/elquis, patient was brought into the emergency room with mostly multiple complaints including fall and syncope, he has been coughing and shortness of breath for the last 5 days. Patient was tested for silveira virus, and he had a positive PCR. Chest x-ray on admission showed bilateral infiltrates. Patient was admitted, and I was asked to see him on consultation. The patient himself is not a great historian, has been seen by many consultants and since this admission, and I believe the patient was noted to have low sodium of 118 low magnesium of 1.4, his LDH was 672. WBC count 6.4 hemoglobin is 13.3. Renal profile is normal. His urine osmolality was noted to be elevated. And his urine random creatinine was 84.7. Serum osmolality was 251. Reevaluated today on 01/22/2021, patient remains on the regular medical floor, sitting at a bedside chair, O2 saturations 98% is presently on 3 L nasal cannula. Patient is not in any distress. Sodium is up to 122. His yanely ctrolytes are normal. CBC is normal. LDH is 1063, and C-reactive protein is 51. Objective - Vital Signs Vital signs: Vital Signs Temp 97.7 F 01/22/21 08:00 Pulse 81 01/22/21 12:00 Resp 18 01/22/21 12:00 BP 121/73 01/22/21 12:00 Pulse Ox 98 01/22/21 12:00 Intake & Output 01/21/21 01/22/21 01/22/21 18:59 06:59 18:59 Intake Total 780 50 480 Output Total 700 750 600 Balance 80 -700 -120 Weight 92 kg Intake: Oral 780 50 480 Output: Urine 700 750 600 Straight 600 Stool 0 Urine/Stool Mix 0 Other: Voiding Method Urinal Urinal Diaper # Voids 1 0 # Bowel Movements 0 - Exam Physical Exam: Revealed a 80-year-old white male in [id number] respiratory distress. Patient is on 3 L nasal cannula O2 saturation is 98%. Head: Atraumatic, normocephalic. HEENT:[Neck is supple.] [No neck masses.] [No thyromegaly.] [No JVD.] Chest: [Fine crackles at the bases bilaterally. Cardiac Exam: [Normal S1 and S2, no S3 gallop, no murmur.] Abdomen: [Soft, nontender, no megaly, no rebound, no guarding, normal bowel sounds.] Extremities: [No clubbing, no edema, no cyanosis.] Neurological Exam:No gross focal neurologic deficits. Psychiatric: Normal mood affectl ess confused today, better mental status today - Labs CBC & Chem 7: 01/22/21 08:46 01/22/21 15:10 Labs: Abnormal Lab Results - Last 24 Hours (Table) 01/21/21 01/22/21 01/22/21 Range/Units 17:03 08:46 08:46 Hct 38.0 L (39.0-53.0) % Sodium 121 L 123 L (137-145) mmol/L Chloride 87 L (98-107) mmol/L BUN 22 H (9-20) mg/dL Glucose 131 H (74-99) mg/dL Calcium 7.8 L (8.4-10.2) mg/dL AST 93 H (17-59) U/L Lactate Dehydrogenase 1063 H (313-618) U/L C-Reactive Protein 50.8 H (<10.0) mg/L 01/22/21 Range/Units 15:10 Hct (39.0-53.0) % Sodium 122 L (137-145) mmol/L Chloride (98-107) mmol/L BUN (9-20) mg/dL Glucose (74-99) mg/dL Calcium (8.4-10.2) mg/dL AST (17-59) U/L Lactate Dehydrogenase (313-618) U/L C-Reactive Protein (<10.0) mg/L Assessment and Plan Assessment: Impression: Acute hypoxic respiratory failure secondary to covid 19 pneumonia. Severe hyponatremia, I believe it is hypovolemic hyponatremia Syncope and fall most likely related to his hypoxia and hyponatremia Chronic atrial fibrillation. Benign essential hypertension. Recommendation: Continue present treatment plan including ascorbic acid,eliquis REM, zinc, IV fluids, Continue to hold diuretics. Continue Decadron Titrate oxygen accordingly. We'll continue to follow. Time with Patient: Less than 30
[2021-01-22] MEDS ORDERED: TOLVAPTAN 15 MG 1/2 TABLET PO ONE (17:17)
[2021-01-22] MEDS: BENZONATATE 100 MG CAP PO PRN (18:19)
[2021-01-22] MEDS: ASPIRIN 81 MG PO SCH (20:20)
[2021-01-22] MEDS: LATANOPROST 0.005% OPHTH DROPS 2.5 ML BTL BOTH EYES SCH (20:20)
[2021-01-23] MEDS: BENZONATATE 100 MG CAP PO PRN ×2 (05:56→19:58)
[2021-01-23] MEDS: ALBUTEROL HFA INHALER INHALATION SCH ×4 (08:02→19:40)
[2021-01-23] MEDS: ASCORBIC ACID 500 MG TAB PO SCH (09:02)
[2021-01-23] MEDS: CHOLECALCIFEROL 25 MCG (1000 IU) TABLET PO SCH (09:02)
[2021-01-23] MEDS: dexAMETHasone 2 MG TAB PO SCH (09:02)
[2021-01-23] MEDS: VALSARTAN 80 MG TAB PO SCH (09:02)
[2021-01-23] MEDS: TAMSULOSIN 0.4 MG CAP.ER.24H PO SCH (09:02)
[2021-01-23] MEDS: APIXABAN 2.5 MG TABLET PO SCH ×2 (09:02→19:58)
[2021-01-23] MEDS: FINASTERIDE 5 MG TAB PO SCH (09:02)
[2021-01-23] MEDS: MULTIVITAMINS, THERA 1 EACH TAB PO SCH (09:02)
[2021-01-23] MEDS: FAMOTIDINE 20 MG TAB PO SCH (09:02)
[2021-01-23] MEDS: ZINC SULFATE 220 MG CAP PO SCH (09:02)
[2021-01-23 10:27] LABS: African American GFR (CKD) >90 (>60 ml/min/1.73 sqM); Anion Gap 13 mmol/L; Blood Urea Nitrogen 22 mg/dL (9-20); Calcium 8.6 mg/dL (8.4-10.2); Carbon Dioxide 25 mmol/L (22-30); Chloride 93 mmol/L (98-107); Glucose 118 mg/dL (74-99); Magnesium 2.4 mg/dL (1.6-2.3); Non-African American GFR(CKD) 82 (>60 ml/min/1.73 sqM); Potassium 4.9 mmol/L (3.5-5.1); Sodium 131 mmol/L (137-145)
[2021-01-23] MEDS: REMDESIVIR 100 MG in SODIUM CHLORIDE 0.9% 250 ML IVPB SCH (11:38)
[2021-01-23] MEDS ORDERED: TOLVAPTAN 15 MG 1/2 TABLET PO ONE (14:00)
--- NOTE | 2021-01-23 14:33 | P.PN ---
Subjective Progress Note Date: 01/23/21 Follow-up for hyponatremia. Objective - Vital Signs Vital signs: Vital Signs Temp 98.9 F 01/23/21 04:00 Pulse 83 01/23/21 04:00 Resp 24 01/23/21 04:00 BP 148/85 01/23/21 04:00 Pulse Ox 98 01/23/21 04:00 Intake & Output 01/22/21 01/23/21 01/23/21 18:59 06:59 18:59 Intake Total 480 200 960 Output Total 600 1850 Balance -120 -1650 960 Weight 88 kg Intake: Oral 480 200 960 Output: Urine 600 1850 Straight 600 Stool 0 0 Urine/Stool Mix 0 Other: Voiding Method Urinal Diaper # Voids 0 1 # Bowel Movements 0 - Exam Exam limited secondary to Covid 19 pandemic to limit PPE. - Labs CBC & Chem 7: 01/22/21 08:46 01/23/21 09:35 Labs: Abnormal Lab Results - Last 24 Hours (Table) 01/22/21 01/23/21 Range/Units 15:10 09:35 Sodium 122 L 131 L (137-145) mmol/L Chloride 93 L (98-107) mmol/L BUN 22 H (9-20) mg/dL Glucose 118 H (74-99) mg/dL Magnesium 2.4 H (1.6-2.3) mg/dL Assessment and Plan Assessment: #1 hypotonic hyponatremia secondary to SIADH from Covid 19. #2 benign essential hypertension #3 Covid 19 pneumonia #4 BPH with urinary retention Plan: #1 status post Samsca yesterday, sodium improved to 131. Give 1 more dose today. #2 fluid restriction, 1200 ML's. #3Labs in the morning
--- NOTE | 2021-01-23 15:03 | P.PN ---
Subjective Progress Note Date: 01/23/21 ([facility] charting seen at 0945) Principal diagnosis: weakness Mr. Powell is an 80 yo M with Afib anticoagulated on Eliquis and HTN who was brought into the ED via EMS due to shortness of breath with syncope and fall. 5 days ago he developed a cough at which time he was tested for COVID, known exposure at [facility] [facility], and was subsequently told he was positive. He underwent an extensive evaluation with a CT head and C-spine negative for acute abnormalities. EKG demonstrated Afib. CXR revealed findings consistent with COVID-19 pneumonia. Laboratory evaluation revealed sodium 118, plt 148, CO2 21, Cl 87, Mg 1.4, Troponin 0.012, CK 504, LDH 672, and coronavirus PCR positive. He was given 1L of IVF in the ED and admitted for further monitoring and care. 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 He was started on decadron and Remdesivir on 01/21 due to requiring 4L NC and active wheezing. Pulmonary was consulted. Echo with EF 5-60% and no significant valvular dysfunction.consulting his hospital stay. He was evaluated by physical and occupational therapy and did well. His breathing had improvement morning of 01/22 but he was still requiring 4 L nasal cannula. Sodium remained relatively unchanged. Patient did require straight cath 1 overnight secondary to urinary retention,which resolved with restarting flomax and proscar. He received 1 dose of Samsca which improved his sodium levels. Patient seen and examined at bedside. Feeling tired today. Not sleeping well. Eating and drinking okay. No nausea, vomiting, or diarrhea. General: ill appearing, no distress,appears at stated age Derm: warm, dry Head: atraumatic, normocephalic, symmetric Eyes: EOMI, no lid lag, anicteric sclera Mouth: no lip lesion, mucus membranes dry Cardiovascular: S1S2 reg, no murmur, positive posterior tibial pulse bilateral, Lungs: + wheeze bilateral bases, no conversational dyspnea, no accessory muscle use Abdominal: soft, nontender to palpation, no guarding, no appreciable organomegaly Ext: no gross muscle atrophy, no edema, no contractures Neuro: CN II-XI grossly intact, no focal neuro deficits Psych: Alert, oriented, appropriate affect Hyponatremia, likely due to SIADH - improved, s/p samsca on 01/22 and once additional dose today per nephrology -Nephrology recs - follow sodium levels - TSH normal - Patient patient's home Flomax and Proscar were not listed on his medications, resumed today COVID 19 pneumonitis with Acute Hypoxic Respiratory failure - Decadron, Remdesivir - Pulm recs appreciated - scheduled and prn bronchodilators - zinc, vit C, vit D, pepcid due to steroids BPH -Flomax and finasteride. Syncope - tele - Echo with EF 55-60% and no significant valvular disease - follow orthostatics A fib without RVR - eliquis - not on rate controlling medications HTN controlled - follow BP - ARB DVT prophylaxis: Eliquis Discussed with: patient, nursing Anticipated discharge: 1-[address]: home with home health A total of 35 minutes was spent on the care of this complex patient more than 50% of the time was spent in counseling and care coordination. Objective - Vital Signs Vital signs: Vital Signs Temp 98.9 F 01/23/21 04:00 Pulse 83 01/23/21 04:00 Resp 24 01/23/21 04:00 BP 148/85 01/23/21 04:00 Pulse Ox 98 01/23/21 04:00 Intake & Output 01/22/21 01/23/21 01/23/21 18:59 06:59 18:59 Intake Total 480 200 960 Output Total 600 1850 Balance -120 -1650 960 Weight 88 kg Intake: Oral 480 200 960 Output: Urine 600 1850 Straight 600 Stool 0 0 Urine/Stool Mix 0 Other: Voiding Method Urinal Diaper # Voids 0 1 # Bowel Movements 0 - Labs CBC & Chem 7: 01/22/21 08:46 01/23/21 09:35 Labs: Abnormal Lab Results - Last 24 Hours (Table) 01/22/21 01/23/21 Range/Units 15:10 09:35 Sodium 122 L 131 L (137-145) mmol/L Chloride 93 L (98-107) mmol/L BUN 22 H (9-20) mg/dL Glucose 118 H (74-99) mg/dL Magnesium 2.4 H (1.6-2.3) mg/dL
--- NOTE | 2021-01-23 15:22 | P.PN ---
Subjective Progress Note Date: 01/23/21 Principal diagnosis: Acute hypoxic respiratory failure secondary to acute covid 19 pneumonia This is an 80-year-old white male with history of atrial fibrillation, maintained on anticoagulations therapy,/elquis, patient was brought into the emergency room with mostly multiple complaints including fall and syncope, he has been coughing and shortness of breath for the last 5 days. Patient was tested for silveira virus, and he had a positive PCR. Chest x-ray on admission showed bilateral infiltrates. Patient was admitted, and I was asked to see him on consultation. The patient himself is not a great historian, has been seen by many consultants and since this admission, and I believe the patient was noted to have low sodium of 118 low magnesium of 1.4, his LDH was 672. WBC count 6.4 hemoglobin is 13.3. Renal profile is normal. His urine osmolality was noted to be elevated. And his urine random creatinine was 84.7. Serum osmolality was 251. Reevaluated today on 01/22/2021, patient remains on the regular medical floor, sitting at a bedside chair, O2 saturations 98% is presently on 3 L nasal cannula. Patient is not in any distress. Sodium is up to 122. His yanely ctrolytes are normal. CBC is normal. LDH is 1063, and C-reactive protein is 51. Reevaluated today on 01/23/2021, remains on the regular medical floor, patient is on 2 L nasal cannula, and O2 saturation is 95%. Maintained on the Covid 19 cocktail. Remains on REM. So far the patient seems to be doing relatively well. Electrolytes are relatively normal renal profile is normal liver profile is relatively normal LDH 1063 and C-reactive protein is 51. Recent labs were from yesterday Objective - Vital Signs Vital signs: Vital Signs Temp 98.0 F 01/23/21 12:00 Pulse 82 01/23/21 12:00 Resp 26 H 01/23/21 12:00 BP 135/76 01/23/21 12:00 Pulse Ox 95 01/23/21 12:00 Intake & Output 01/22/21 01/23/21 01/23/21 18:59 06:59 18:59 Intake Total 480 200 960 Output Total 600 1850 0 Balance -120 -1650 960 Weight 88 kg Intake: Oral 480 200 960 Output: Urine 600 1850 Straight 600 Stool 0 0 0 Urine/Stool Mix 0 Other: Voiding Method Urinal Urinal Diaper Diaper # Voids 0 1 # Bowel Movements 0 - Exam Physical Exam: Revealed a 80-year-old white male in [id number] respiratory distress. Patient is on 3 L nasal cannula O2 saturation is 95% Head: Atraumatic, normocephalic. HEENT:[Neck is supple.] [No neck masses.] [No thyromegaly.] [No JVD.] Chest: [Fine crackles at the bases bilaterally. Cardiac Exam: [Normal S1 and S2, no S3 gallop, no murmur.] Abdomen: [Soft, nontender, no megaly, no rebound, no guarding, normal bowel sounds.] Extremities: [No clubbing, no edema, no cyanosis.] Neurological Exam:No gross focal neurologic deficits. Psychiatric: Normal mood slightly confused. - Labs CBC & Chem 7: 01/22/21 08:46 01/23/21 09:35 Labs: Abnormal Lab Results - Last 24 Hours (Table) 01/22/21 01/23/21 Range/Units 15:10 09:35 Sodium 122 L 131 L (137-145) mmol/L Chloride 93 L (98-107) mmol/L BUN 22 H (9-20) mg/dL Glucose 118 H (74-99) mg/dL Magnesium 2.4 H (1.6-2.3) mg/dL Assessment and Plan Assessment: Impression: Acute hypoxic respiratory failure secondary to covid 19 pneumonia. Severe hyponatremia, I believe it is hypovolemic hyponatremia, resolving with hydration. Syncope and fall most likely related to his hypoxia and hyponatremia Chronic atrial fibrillation. Benign essential hypertension. Recommendation: Continue present treatment plan including ascorbic acid,eliquis REM, zinc, IV fluids, Continue to hold diuretics. Continue Decadron Titrate oxygen accordingly. We'll continue to follow. Time with Patient: Less than 30
[2021-01-23] MEDS: ASPIRIN 81 MG PO SCH (19:58)
[2021-01-23] MEDS: LATANOPROST 0.005% OPHTH DROPS 2.5 ML BTL BOTH EYES SCH (19:58)
[2021-01-24 07:54] LABS: HGB 14.3 gm/dL (13.0-17.5); MCH 31.6 pg (25.0-35.0); MCHC 35.8 g/dL (31.0-37.0); MCV 88.3 fL (80.0-100.0); Mean Platelet Volume 7.1; Platelet Count 251 k/uL (150-450); RBC 4.53 m/uL (4.30-5.90); RDW 12.6 % (11.5-15.5); WBC 8.9 k/uL (3.8-10.6)
[2021-01-24 08:09] LABS: ALT 58 U/L (4-49); AST 81 U/L (17-59); African American GFR (CKD) >90 (>60 ml/min/1.73 sqM); Albumin 3.6 g/dL (3.5-5.0); Alkaline Phosphatase 81 U/L (38-126); Anion Gap 8 mmol/L; Blood Urea Nitrogen 21 mg/dL (9-20); C Reactive Protein 28.7 mg/L (<10.0); Calcium 8.5 mg/dL (8.4-10.2); Carbon Dioxide 29 mmol/L (22-30); Chloride 98 mmol/L (98-107); Glucose 127 mg/dL (74-99); LDH 1282 U/L (313-618); Non-African American GFR(CKD) 86 (>60 ml/min/1.73 sqM); Sodium 135 mmol/L (137-145); Total Bilirubin 0.9 mg/dL (0.2-1.3); Total Protein 6.2 g/dL (6.3-8.2)
[2021-01-24] MEDS: ALBUTEROL HFA INHALER INHALATION SCH ×4 (08:20→19:38)
[2021-01-24] MEDS: FINASTERIDE 5 MG TAB PO SCH (08:37)
[2021-01-24] MEDS: CHOLECALCIFEROL 25 MCG (1000 IU) TABLET PO SCH (08:37)
[2021-01-24] MEDS: ASCORBIC ACID 500 MG TAB PO SCH (08:37)
[2021-01-24] MEDS: FAMOTIDINE 20 MG TAB PO SCH (08:37)
[2021-01-24] MEDS: dexAMETHasone 2 MG TAB PO SCH (08:37)
[2021-01-24] MEDS: VALSARTAN 80 MG TAB PO SCH (08:37)
[2021-01-24] MEDS: MULTIVITAMINS, THERA 1 EACH TAB PO SCH (08:38)
[2021-01-24] MEDS: ZINC SULFATE 220 MG CAP PO SCH (08:38)
[2021-01-24] MEDS: TAMSULOSIN 0.4 MG CAP.ER.24H PO SCH (08:38)
[2021-01-24] MEDS: APIXABAN 2.5 MG TABLET PO SCH ×2 (08:38→20:11)
--- NOTE | 2021-01-24 08:49 | XR ---
EXAMINATION TYPE: XR chest 1V portable DATE OF EXAM: 01/24/2021 COMPARISON: 01/20/2021. HISTORY: Covid pneumonia. TECHNIQUE: Single frontal view of the chest is obtained. FINDINGS: There is persistent moderate patchy opacities in the mid to lower lungs bilaterally, simil ar to the prior study. No pleural effusion, or pneumothorax seen. The cardiac silhouette size is wit hin normal limits. The osseous structures are intact. IMPRESSION: No significant interval change.
[2021-01-24] MEDS: REMDESIVIR 100 MG in SODIUM CHLORIDE 0.9% 250 ML IVPB SCH (11:51)
[2021-01-24 11:52] VITALS: RESP 18
--- NOTE | 2021-01-24 12:16 | P.PN ---
Subjective Progress Note Date: 01/24/21 ([facility] charting seen at 0930) Principal diagnosis: weakness Mr. Powell is an 80 yo M with Afib anticoagulated on Eliquis and HTN who was brought into the ED via EMS due to shortness of breath with syncope and fall. 5 days ago he developed a cough at which time he was tested for COVID, known exposure at [facility] [employer] [facility], and was subsequently told he was positive. He underwent an extensive evaluation with a CT head and C-spine negative for acute abnormalities. EKG demonstrated Afib. CXR revealed findings consistent with COVID-19 pneumonia. Laboratory evaluation revealed sodium 118, plt 148, CO2 21, Cl 87, Mg 1.4, Troponin 0.012, CK 504, LDH 672, and coronavirus PCR positive. He was given 1L of IVF in the ED and admitted for further monitoring and care. 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 He was started on decadron and Remdesivir on 01/21 due to requiring 4L NC and active wheezing. Pulmonary was consulted. Echo with EF 5-60% and no significant valvular dysfunction.consulting his hospital stay. He was evaluated by physical and occupational therapy and did well. His breathing had improvement morning of 01/22 but he was still requiring 4 L nasal cannula. Sodium remained relatively unchanged. Patient did require straight cath 1 overnight secondary to urinary retention,which resolved with restarting flomax and proscar. He received 1 dose of Samsca which improved his sodium levels. He recieved an additional dose of samsca on 01/23 again with improvement. Patient seen and examined at bedside. Still feeling tired, states breathing is not that bad. Eating and drinking well. Worried about going home as he still feels weak and unbalanced. General: ill appearing, no distress,appears at stated age Derm: warm, dry Head: atraumatic, normocephalic, symmetric Eyes: EOMI, no lid lag, anicteric sclera Mouth: no lip lesion, mucus membranes dry Cardiovascular: S1S2 reg, no murmur, positive posterior tibial pulse bilateral, Lungs: + wheeze bilateral bases, no conversational dyspnea, no accessory muscle use Abdominal: soft, nontender to palpation, no guarding, no appreciable organomegaly Ext: no gross muscle atrophy, no edema, no contractures Neuro: CN II-XI grossly intact, no focal neuro deficits Psych: Alert, oriented, appropriate affect Hyponatremia, likely due to SIADH - improved, s/p samsca on 01/22 and 01/23 - Nephrology recs - follow sodium levels - TSH normal COVID 19 pneumonitis with Acute Hypoxic Respiratory failure - Decadron, Remdesivir - Pulm recs appreciated - scheduled and prn bronchodilators - zinc, vit C, vit D, pepcid due to steroids BPH -Flomax and finasteride. Syncope - tele - Echo with EF 55-60% and no significant valvular disease - follow orthostatics A fib without RVR - eliquis - not on rate controlling medications HTN controlled - follow BP - ARB DVT prophylaxis: Eliquis Discussed with: patient, nursing Anticipated discharge: in AM Anticipated discharge place: home with home health vs SNF A total of 35 minutes was spent on the care of this complex patient more than 50% of the time was spent in counseling and care coordination. Objective - Vital Signs Vital signs: Vital Signs Temp 97.5 F L 01/24/21 08:00 Pulse 75 01/24/21 11:51 Resp 18 01/24/21 11:51 BP 137/81 01/24/21 11:51 Pulse Ox 90 L 01/24/21 11:51 Intake & Output 01/23/21 01/24/21 01/24/21 18:59 06:59 18:59 Intake Total 1200 240 Output Total 1025 1050 Balance 175 -1050 240 Weight 88 kg Intake: Oral 1200 240 Output: Urine 1025 1050 Stool 0 0 Other: Voiding Method Urinal Urinal Diaper Diaper - Labs CBC & Chem 7: 01/24/21 07:27 01/24/21 07:27 Labs: Abnormal Lab Results - Last 24 Hours (Table) 01/24/21 Range/Units 07:27 Sodium 135 L (137-145) mmol/L BUN 21 H (9-20) mg/dL Glucose 127 H (74-99) mg/dL AST 81 H (17-59) U/L ALT 58 H (4-49) U/L Lactate Dehydrogenase 1282 H (313-618) U/L C-Reactive Protein 28.7 H (<10.0) mg/L Total Protein 6.2 L (6.3-8.2) g/dL
--- NOTE | 2021-01-24 13:08 | P.PN ---
Subjective Progress Note Date: 01/24/21 Follow-up for hyponatremia. Objective - Vital Signs Vital signs: Vital Signs Temp 97.5 F L 01/24/21 08:00 Pulse 75 01/24/21 11:51 Resp 18 01/24/21 11:51 BP 137/81 01/24/21 11:51 Pulse Ox 90 L 01/24/21 11:51 Intake & Output 01/23/21 01/24/21 01/24/21 18:59 06:59 18:59 Intake Total 1200 240 Output Total 1025 1050 Balance 175 -1050 240 Weight 88 kg Intake: Oral 1200 240 Output: Urine 1025 1050 Stool 0 0 Other: Voiding Method Urinal Urinal Diaper Diaper - Exam Exam limited secondary to Covid 19 pandemic to limit PPE. - Labs CBC & Chem 7: 01/24/21 07:27 01/24/21 07:27 Labs: Abnormal Lab Results - Last 24 Hours (Table) 01/24/21 Range/Units 07:27 Sodium 135 L (137-145) mmol/L BUN 21 H (9-20) mg/dL Glucose 127 H (74-99) mg/dL AST 81 H (17-59) U/L ALT 58 H (4-49) U/L Lactate Dehydrogenase 1282 H (313-618) U/L C-Reactive Protein 28.7 H (<10.0) mg/L Total Protein 6.2 L (6.3-8.2) g/dL Assessment and Plan Assessment: #1 hypotonic hyponatremia secondary to SIADH from Covid 19. #2 benign essential hypertension #3 Covid 19 pneumonia #4 BPH with urinary retention Plan: #1 status post Samsca, sodium back to baseline. Add sodium chloride 1 g twice a day #2 fluid restriction, 1200 ML's. #3 stable from nephrology for discharge
--- NOTE | 2021-01-24 15:54 | P.PN ---
Subjective Progress Note Date: 01/24/21 Principal diagnosis: Acute hypoxic respiratory failure secondary to acute covid 19 pneumonia This is an 80-year-old white male with history of atrial fibrillation, maintained on anticoagulations therapy,/elquis, patient was brought into the emergency room with mostly multiple complaints including fall and syncope, he has been coughing and shortness of breath for the last 5 days. Patient was tested for silveira virus, and he had a positive PCR. Chest x-ray on admission showed bilateral infiltrates. Patient was admitted, and I was asked to see him on consultation. The patient himself is not a great historian, has been seen by many consultants and since this admission, and I believe the patient was noted to have low sodium of 118 low magnesium of 1.4, his LDH was 672. WBC count 6.4 hemoglobin is 13.3. Renal profile is normal. His urine osmolality was noted to be elevated. And his urine random creatinine was 84.7. Serum osmolality was 251. Reevaluated today on 01/22/2021, patient remains on the regular medical floor, sitting at a bedside chair, O2 saturations 98% is presently on 3 L nasal cannula. Patient is not in any distress. Sodium is up to 122. His yanely ctrolytes are normal. CBC is normal. LDH is 1063, and C-reactive protein is 51. Reevaluated today on 01/23/2021, remains on the regular medical floor, patient is on 2 L nasal cannula, and O2 saturation is 95%. Maintained on the Covid 19 cocktail. Remains on REM. So far the patient seems to be doing relatively well. Electrolytes are relatively normal renal profile is normal liver profile is relatively normal LDH 1063 and C-reactive protein is 51. Recent labs were from yesterday Reevaluated today on 01/24/2021, patient is now on room air, does not seem to be in any distress, his O2 saturation is 90-94% on room air. Patient was on 2 L nasal cannula earlier. Patient is sitting in a bedside chair, hemodynamically stable. CBC is relatively normal. Renal profile is normal. His LDH is 122 and C-reactive protein is 28.7. Patient is on the Covid 19 cocktail, he is also on REM. Chest x-ray today showed basically no change continues to have persistent moderate patchy opacities in both lungs. Objective - Vital Signs Vital signs: Vital Signs Temp 97.5 F L 01/24/21 08:00 Pulse 75 01/24/21 11:51 Resp 18 01/24/21 11:51 BP 137/81 01/24/21 11:51 Pulse Ox 90 L 01/24/21 11:51 Intake & Output 01/23/21 01/24/21 01/24/21 18:59 06:59 18:59 Intake Total 1200 355 Output Total 1025 1050 Balance 175 -1050 355 Weight 88 kg Intake: Oral 1200 355 Output: Urine 1025 1050 Stool 0 0 Other: Voiding Method Urinal Urinal Diaper Diaper - Exam Physical Exam: Revealed a 80-year-old white male in [id number] respiratory distress. Presently on room air. Head: Atraumatic, normocephalic. HEENT:[Neck is supple.] [No neck masses.] [No thyromegaly.] [No JVD.] Chest: [Echoes and rhonchi bilaterally especially at the left base.. Cardiac Exam: [Normal S1 and S2, no S3 gallop, no murmur.] Abdomen: [Soft, nontender, no megaly, no rebound, no guarding, normal bowel sounds.] Extremities: [No clubbing, no edema, no cyanosis.] Neurological Exam:No gross focal neurologic deficits. Psychiatric: Normal mood, affect, minimal confusion.. - Labs CBC & Chem 7: 01/24/21 07:27 01/24/21 07:27 Labs: Abnormal Lab Results - Last 24 Hours (Table) 01/24/21 Range/Units 07:27 Sodium 135 L (137-145) mmol/L BUN 21 H (9-20) mg/dL Glucose 127 H (74-99) mg/dL AST 81 H (17-59) U/L ALT 58 H (4-49) U/L Lactate Dehydrogenase 1282 H (313-618) U/L C-Reactive Protein 28.7 H (<10.0) mg/L Total Protein 6.2 L (6.3-8.2) g/dL Assessment and Plan Assessment: Impression: Acute hypoxic respiratory failure secondary to covid 19 pneumonia. Severe hyponatremia, I believe it is hypovolemic hyponatremia, resolving with hydration. Syncope and fall most likely related to his hypoxia and hyponatremia Chronic atrial fibrillation. Benign essential hypertension. Recommendation: Continue present treatment plan including ascorbic acid,eliquis REM, zinc, IV fluids, Continue Decadron Titrate oxygen accordingly. Continue to monitor chest x-ray every other day. Continue to monitor inflammatory markers every other day. Assess possibility for discharge once he is done with REM We'll continue to follow. Time with Patient: Less than 30
[2021-01-24] MEDS: ASPIRIN 81 MG PO SCH (20:11)
[2021-01-24] MEDS: SODIUM CHLORIDE TAB 1 GM TAB PO SCH (20:11)
[2021-01-24] MEDS: LATANOPROST 0.005% OPHTH DROPS 2.5 ML BTL BOTH EYES SCH (20:12)
[2021-01-25 08:32] LABS: HCT 39.4 % (39.0-53.0); HGB 13.7 gm/dL (13.0-17.5); MCHC 34.7 g/dL (31.0-37.0); MCV 89.2 fL (80.0-100.0); Mean Platelet Volume 7.2; Platelet Count 327 k/uL (150-450); RBC 4.42 m/uL (4.30-5.90); RDW 12.8 % (11.5-15.5)
[2021-01-25 08:48] VITALS: BP 151/84; PULSE 73; TEMP 97
[2021-01-25] MEDS: MULTIVITAMINS, THERA 1 EACH TAB PO SCH (08:51)
[2021-01-25] MEDS: FAMOTIDINE 20 MG TAB PO SCH (08:51)
[2021-01-25] MEDS: TAMSULOSIN 0.4 MG CAP.ER.24H PO SCH (08:52)
[2021-01-25] MEDS: dexAMETHasone 2 MG TAB PO SCH (08:52)
[2021-01-25] MEDS: FINASTERIDE 5 MG TAB PO SCH (08:52)
[2021-01-25] MEDS: ZINC SULFATE 220 MG CAP PO SCH (08:52)
[2021-01-25] MEDS: APIXABAN 2.5 MG TABLET PO SCH (08:52)
[2021-01-25] MEDS: VALSARTAN 80 MG TAB PO SCH (08:52)
[2021-01-25] MEDS: ALBUTEROL HFA INHALER INHALATION SCH ×2 (08:52→12:27)
[2021-01-25] MEDS: CHOLECALCIFEROL 25 MCG (1000 IU) TABLET PO SCH (08:52)
[2021-01-25] MEDS: ASCORBIC ACID 500 MG TAB PO SCH (08:52)
[2021-01-25] MEDS: SODIUM CHLORIDE TAB 1 GM TAB PO SCH (08:52)
[2021-01-25 08:56] LABS: African American GFR (CKD) >90 (>60 ml/min/1.73 sqM); Anion Gap 5 mmol/L; Blood Urea Nitrogen 26 mg/dL (9-20); Calcium 8.3 mg/dL (8.4-10.2); Carbon Dioxide 31 mmol/L (22-30); Chloride 100 mmol/L (98-107); Glucose 117 mg/dL (74-99); Non-African American GFR(CKD) 86 (>60 ml/min/1.73 sqM); Potassium 4.8 mmol/L (3.5-5.1); Sodium 136 mmol/L (137-145)
--- NOTE | 2021-01-25 09:56 | P.DS ---
Providers Date of admission: 01/20/21 17:32 Expected date of discharge: 01/25/21 Attending physician: Jaky Troy DO Consults: 01/20/21 22:22 Consult Physician Urgent Consulting Provider: Dwain Petty Consult Reason/Comments: HypoNa Do you want consulting provider notified?: Yes 01/20/21 22:55 Consult Physician Urgent Consulting Provider: Kane Garduno Consult Reason/Comments: COVID Do you want consulting provider notified?: Yes Primary care physician: Paige Lo Hospital Course: Discharge Diagnosis: Hyponatremia secondary to SIADH COVID19 pneumonitis Acute hypoxic respiratory failure BPH Syncope A. fib without rapid ventricular response Hypertension Generalized weakness Hospital Course: Mr. Powell is an 80 yo M with Afib anticoagulated on Eliquis and HTN who was brought into the ED via EMS due to shortness of breath with syncope and fall. 5 days ago he developed a cough at which time he was tested for COVID, known exposure at [facility], and was subsequently told he was positive. He underwent an extensive evaluation with a CT head and C-spine negative for acute abnormalities. EKG demonstrated Afib. CXR revealed findings consistent with COVID-19 pneumonia. Laboratory evaluation revealed sodium 118, plt 148, CO2 21, Cl 87, Mg 1.4, Troponin 0.012, CK 504, LDH 672, and coronavirus PCR positive. He was given 1L of IVF in the ED and admitted for further monitoring and care. 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 He ultimately required 2 doses a [place] that his sodium normalized. He had no additional episodes of syncope during his hospital stay. Echo with EF 5-60% and no significant valvular dysfunction. Repeat orthostatics were negative. He was also seen by pulmonary and he received a five-day course of from dust severe as well as dexamethasone. He was seen by physical therapy and was determined he was appropriate for home with home health but needed 24- hour supervision and he will stay with his daughter Samira. He will follow-up with Dr. Lo in 2-3 days. Follow-up: 6 more days of dexamethasone, and vitamin D, H2 sasha well on oral steroids. Will need repeat basic metabolic profile in 3 days. We will follow up with Dr. Petty regarding hyponatremia. Dr. Matte, Patient seen and examined at bedside. Breathing is doing okay. He is still feeling quite tired and exhausted. We discussed that he will need to go home with his daughter for 24-hour supervision along with home health care. Vital signs reviewed and stable. General: non toxic, no distress, appears at stated age Derm: warm, dry Head: atraumatic, normocephalic, symmetric Eyes: EOMI, no lid lag, anicteric sclera Mouth: no lip lesion, mucus membranes moist Cardiovascular: S1S2 reg, no murmur, positive posterior tibial pulse bilateral, Lungs: Coarse breath sounds bilateral, no rhonchi, no rales , no accessory muscle use Abdominal: soft, nontender to palpation, no guarding, no appreciable organomegaly Ext: no gross muscle atrophy, no edema, no contractures Neuro: CN II-XI grossly intact, no focal neuro deficits Psych: Alert, oriented, appropriate affect A total of 38 minutes of time were spent preparing this complex discharge summary . Patient Condition at Discharge: Fair Plan - Discharge Summary Discharge Rx Participant: No New Discharge Prescriptions: New Cholecalciferol (Vitamin D3) [Vitamin D3 (4,000 Iu)] 4,000 unit PO DAILY #30 capsule Famotidine [Pepcid] 20 mg PO DAILY #10 tab Ascorbic Acid [Vitamin C] 1,000 mg PO DAILY tab Dexamethasone 6 mg PO DAILY 6 Days #6 tablet Continue Aspirin EC [Ecotrin Low Dose] 81 mg PO HS Benzonatate [Tessalon Perles] 100 mg PO TID PRN PRN Reason: Cough Valsartan [Diovan] 80 mg PO DAILY Tamsulosin [Flomax] 0.4 mg PO DAILY Finasteride [Proscar] 5 mg PO DAILY Multivitamins, Thera [Multivitamin (formulary)] 1 tab PO DAILY Albuterol Inhaler [Ventolin Hfa Inhaler] 2 puff INHALATION RT-QID PRN PRN Reason: Shortness Of Breath Latanoprost [Xalatan 0.005%] 1 drop BOTH EYES HS Apixaban [Eliquis] 2.5 mg PO BID Discontinued Azithromycin [Zithromax Z-pack (6 tabs)] See Taper PO DAILY Discharge Medication List Albuterol Inhaler [Ventolin Hfa Inhaler] 2 puff INHALATION RT-QID PRN 01/20/21 [History] Apixaban [Eliquis] 2.5 mg PO BID 01/20/21 [History] Aspirin EC [Ecotrin Low Dose] 81 mg PO HS 01/20/21 [History] Benzonatate [Tessalon Perles] 100 mg PO TID PRN 01/20/21 [History] Latanoprost [Xalatan 0.005%] 1 drop BOTH EYES HS 01/20/21 [History] Multivitamins, Thera [Multivitamin (formulary)] 1 tab PO DAILY 01/20/21 [History] Valsartan [Diovan] 80 mg PO DAILY 01/20/21 [History] Finasteride [Proscar] 5 mg PO DAILY 01/22/21 [History] Tamsulosin [Flomax] 0.4 mg PO DAILY 01/22/21 [History] Ascorbic Acid [Vitamin C] 1,000 mg PO DAILY tab 01/25/21 [Rx] Cholecalciferol (Vitamin D3) [Vitamin D3 (4,000 Iu)] 4,000 unit PO DAILY #30 capsule 01/25/21 [Rx] Dexamethasone 6 mg PO DAILY 6 Days #6 tablet 01/25/21 [Rx] Famotidine [Pepcid] 20 mg PO DAILY #10 tab 01/25/21 [Rx] Follow up Appointment(s)/Referral(s): Dwain Petty DO [STAFF PHYSICIAN] - 1 Week ([facility]) Paige Lo MD [Primary Care Provider] - 1-2 days ([facility]) Ambulatory/Diagnostic Orders: Basic Metabolic Panel [LAB.AMB] Time Frame: 3 Days, Location: None Selected Activity/Diet/Wound Care/Special Instructions: Activity: as tolerated Diet: regular (No need to restrict salt), 1500 CC fluid restriction Special Instructions: repeat salt level in 3 days Discharge Disposition: HOME WITH HOME HEALTH SERVICES
[2021-01-25] MEDS: REMDESIVIR 100 MG in SODIUM CHLORIDE 0.9% 250 ML IVPB SCH (10:42)
--- NOTE | 2021-01-25 14:32 | PN ---
PROGRESS NOTE Patient is seen for followup for hyponatremia secondary to SIADH. Serum sodium has improved to 136. Patient is doing well. Denies any significant complaints. He is being treated for COVID pneumonia as well. The patient is not examined. He is awake, comfortable. CHAIRMAN OF THE BOARD exam is grossly intact. I did speak to him from the end of the room. Blood pressure was 144/83, heart rate 71 per minute. He is afebrile. LABS: Labs show sodium 136, potassium 4.8, BUN 26, creatinine 0.75, hemoglobin 13.7 g/dL. ASSESSMENT: 1. Hyponatremia secondary to SIADH, status post Samsca, currently improved. 2. COVID-19 pneumonia, stable and improving. 3. Hypertension. 4. Benign prostatic hypertrophy with urinary retention, currently voiding well with no retention. PLAN: Patient can be discharged. He should continue with fluid restriction. Repeat labs in 3- 4 days post discharge. MMODL / IJN: [id number] /
== END 2021-01-25 14:22 | disposition home health service (06) | DRG 177 ==
LOC: EC 14:24 → 3SCARD 17:32
PROVIDERS: ADMIT Internal Medicine; ATTEND Internal Medicine
PROC: XW033E5 Introduction of Remdesivir Anti-infective into Peripheral Vein, Percutaneous Approach, New Technology Group 5 (ICD-10-PCS; principal; 2021-01-20)
DX: U07.1 COVID-19 (principal); J12.82 Pneumonia due to coronavirus disease 2019; J96.01 Acute respiratory failure with hypoxia; I48.20 Chronic atrial fibrillation, unspecified; E22.2 Syndrome of inappropriate secretion of antidiuretic hormone; E87.4 Mixed disorder of acid-base balance; Z87.891 Personal history of nicotine dependence; Z79.01 Long term (current) use of anticoagulants; R55 Syncope and collapse; E83.42 Hypomagnesemia; I10 Essential (primary) hypertension; N40.1 Benign prostatic hyperplasia with lower urinary tract symptoms; R33.8 Other retention of urine; E86.1 Hypovolemia
CPT/HCPCS: 36415; 70450; 71045; 72125; 80048; 80053; 82550; 82570; 82728; 83605; 83615; 83735; 83880; 83930; 83935; 84145; 84295; 84300; 84443; 84484; 85025; 85027; 85379; 85610; 85730; 86140; 87635; 93005; 93306; 94640; 94760; 96360; 99285

== ENCOUNTER → 2021-05-28 | Outpatient (CLI) | payer MEDICARE ==
--- NOTE | 2021-05-28 12:51 | XR ---
EXAMINATION TYPE: XR chest 2V DATE OF EXAM: 05/28/2021 COMPARISON: 01/24/2021 HISTORY: 80 year-old male shortness of breath TECHNIQUE: Frontal and lateral views FINDINGS: Low lung volumes and cardiovascular markings. Heart borderline in size. Mild interstitial prominence is a chronic appearance. Some strandy atelectasis of the left base. The previous peripheral infiltrat es have resolved. No pleural effusion. IMPRESSION: Some hypoventilatory changes. Borderline heart size. No definite acute process.
== END | disposition home or self-care (01) ==
LOC: RADXRMAIN 09:08
PROVIDERS: ATTEND Family Medicine
DX: R06.02 Shortness of breath (principal)
CPT/HCPCS: 71046

== ENCOUNTER → 2021-05-29 | Outpatient (CLI) | payer MEDICARE ==
[2021-05-29 11:48] LABS: HCT 43.5 % (39.6-50.0); HGB 14.6 g/dL (13.0-17.0); MCHC 33.6 g/dL (32.0-37.0); MCV 89.5 fL (80.0-97.0); Mean Platelet Volume 9.9 fL (9.5-12.2); Platelet Count 243 X 10*3/uL (140-440); RBC 4.86 X 10*6/uL (4.40-5.60); RDW 13.2 % (11.5-14.5); WBC 10.53 X 10*3/uL (4.50-10.00)
[2021-05-29 12:44] LABS: African American GFR (CKD) 81.4 (60.0-200.0); Albumin 4.5 g/dL (3.80-4.90); Albumin/Globulin Ratio 1.55 (1.60-3.17); Anion Gap 9.4 mmol/L (4.00-12.00); Calcium 9.3 mg/dL (8.7-10.3); Carbon Dioxide 27.6 mmol/L (21.6-31.8); Chol/HDL Ratio 3.78; Globulin 2.9 g/dL (1.6-3.3); LDL Cholesterol,Calculated 111.4 mg/dL (0.0-131.0); Non-African American GFR(CKD) 70.3 (60.0-200.0); Potassium 4.3 mmol/L (3.5-5.5); Total Bilirubin 0.7 mg/dL (0.3-1.2); Total Protein 7.4 g/dL (6.2-8.2); VLDL Calculation 16.6 mg/dL (5.00-40.00)
[2021-05-29 15:28] LABS: Hemoglobin A1C 6.1 % (4.0-6.0)
== END | disposition home or self-care (01) ==
LOC: LABWHC1 08:20
PROVIDERS: ATTEND Family Medicine
DX: Z00.00 Encounter for general adult medical examination without abnormal findings (principal); I48.91 Unspecified atrial fibrillation; I10 Essential (primary) hypertension
CPT/HCPCS: 36415; 80053; 80061; 82550; 83036; 83880; 84443; 84484; 85027

== ENCOUNTER 2023-04-10 16:41 | Emergency (ER) | payer MEDICARE ==
[2023-04-10 16:55] VITALS: RESP 20
--- NOTE | 2023-04-10 17:24 | ED ---
General Adult HPI - General Chief complaint: Abdominal Pain Stated complaint: Abdominal pain Time Seen by Provider: 04/10/23 17:03 Source: patient, RN notes reviewed Mode of arrival: ambulatory Limitations: no limitations - History of Present Illness Initial comments: Patient is a pleasant 82-year-old male presenting to the emergency department with concerns of abdominal pain. Onset of symptoms was around 4 hours ago. Discomfort was somewhat severe rated 9/10 however is starting to subside. Discomfort is currently 3/10. Discomfort is right mid abdomen. Patient states earlier it was a little bit higher. Patient states originally it started under the chest. No chest pain. No dyspnea. No nausea vomiting. patient diarrhea. No history of similar symptoms previously. - Related Data Home Medications Medication Instructions Recorded Confirmed Albuterol Inhaler [Ventolin Hfa 2 puff INHALATION RT-QID PRN 01/20/21 01/20/21 Inhaler] Apixaban [Eliquis] 2.5 mg PO BID 01/20/21 01/20/21 Aspirin EC [Ecotrin Low Dose] 81 mg PO HS 01/20/21 01/20/21 Benzonatate [Tessalon Perles] 100 mg PO TID PRN 01/20/21 01/20/21 Latanoprost [Xalatan 0.005%] 1 drop BOTH EYES HS 01/20/21 01/20/21 Multivitamins, Thera [Multivitamin 1 tab PO DAILY 01/20/21 01/20/21 (formulary)] Valsartan [Diovan] 80 mg PO DAILY 01/20/21 01/20/21 Finasteride [Proscar] 5 mg PO DAILY 01/22/21 01/22/21 Tamsulosin [Flomax] 0.4 mg PO DAILY 01/22/21 01/22/21 Previous Rx's Medication Instructions Recorded Ascorbic Acid [Vitamin C] 1,000 mg PO DAILY tab 01/25/21 Cholecalciferol (Vitamin D3) 4,000 unit PO DAILY #30 capsule 01/25/21 [Vitamin D3 (4,000 Iu)] Famotidine [Pepcid] 20 mg PO DAILY #10 tab 01/25/21 dexAMETHasone [Dexamethasone] 6 mg PO DAILY 6 Days #6 tablet 01/25/21 Allergies Allergy/AdvReac Type Severity Reaction Status Date / Time No Known Allergies Allergy Verified 04/10/23 16:55 Review of Systems ROS Statement: Those systems with pertinent positive or pertinent negative responses have been documented in the HPI. ROS Other: All systems not noted in ROS Statement are negative. Constitutional: Denies: fever Eyes: Denies: eye pain ENT: Denies: ear pain Respiratory: Denies: cough Cardiovascular: Denies: chest pain Endocrine: Denies: fatigue Gastrointestinal: Reports: as per HPI, abdominal pain. Denies: nausea, vomiting, diarrhea, constipation Genitourinary: Denies: dysuria Musculoskeletal: Denies: back pain Skin: Denies: rash Neurological: Denies: weakness Past Medical History Past Medical History: No Reported History History of Any Multi-Drug Resistant Organisms: None Reported Past Surgical History: Hernia Repair Additional Past Surgical History / Comment(s): abdominal surgery 6 years ago. Past Anesthesia/Blood Transfusion Reactions: No Reported Reaction Past Psychological History: No Psychological Hx Reported Smoking Status: Former smoker Past Alcohol Use History: Daily Past Drug Use History: None Reported General Exam Limitations: no limitations General appearance: alert, in no apparent distress Head exam: Present: normocephalic Eye exam: Present: normal appearance Neck exam: Present: normal inspection Respiratory exam: Present: normal lung sounds bilaterally Cardiovascular Exam: Present: irregular rhythm Expanded Peripheral pulses: 2+: Posterior Tibialis (R), Posterior Tibialis (L), Dorsalis Pedis (R), Dorsalis Pedis (L) GI/Abdominal exam: Present: soft, tenderness (Mild tenderness right mid abdomen). Absent: distended Extremities exam: Present: normal inspection. Absent: pedal edema, calf tenderness Back exam: Absent: CVA tenderness (R) Neurological exam: Present: alert Psychiatric exam: Present: normal affect, normal mood Skin exam: Present: normal color Course Vital Signs 04/10/23 04/10/23 16:47 18:55 Temperature 97.5 F L Pulse Rate 84 90 Respiratory 20 Rate Blood Pressure 162/96 O2 Sat by Pulse 97 96 Oximetry EKG Findings - EKG Results: EKG: interpreted by ERMD, normal axis, normal QRS, normal ST/T EKG shows: atrial fibrillation Medical Decision Making - Medical Decision Making Was pt. sent in by a medical professional or institution (, PA, DRILL SHARPENER, urgent care, hospital, or fpc...) When possible be specific @ -No Did you speak to anyone other than the patient for history (EMS, parent, family, police, friend...)? 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 Did you review nursing and triage notes (agree or disagree)? Why? @ -I reviewed nursing and triage notes but patient denies chest pain. Were old charts reviewed (outside hosp., previous admission, EMS record, old EKG, old radiological studies, urgent care reports/EKG's, fpc records)? Report findings @ -No old charts were reviewed Differential Diagnosis (chest pain, altered mental status, abdominal pain women, abdominal pain men, vaginal bleeding, weakness, fever, dyspnea, syncope, headache, dizziness, GI bleed, back pain, seizure, CVA, palpatations, mental health)? @ -Differential Abdominal Pain Men: Appendicitis, cholecystitis, diverticulosis, ischemic bowel, pancreatitis, hepatitis, UTI, gastroenteritis, AAA, incarcerated hernia, bowel obstruction, constipation, inflammatory bowel, hepatitis, peptic ulcer disease, splenic infarction, perforated viscus, testicular torsion, this is not meant to be an all-inclusive list EKG interpreted by me (3pts min.). @ -As above X-rays interpreted by me (1pt min.). @ -None done CT interpreted by me (1pt min.). @ -Report reviewed U/S interpreted by me (1pt. min.). @ -None done What testing was considered but not performed or refused? (CT, X-rays, U/S, labs)? Why? @ -None What meds were considered but not given or refused? Why? @ -None Did you discuss the management of the patient with other professionals (professionals i.e. , PA, DRILL SHARPENER, lab, RT, psych nurse, aids social worker, faculty dean, teacher, immigration services officer, caser shoe parts)? Give summary @ -No Was smoking cessation discussed for >3mins.? @ -No Was critical care preformed (if so, how long)? @ -No Were there social determinants of health that impacted care today? How? (Homelessness, low income, unemployed, alcoholism, drug addiction, transportation, low edu. Level, literacy, decrease access to med. care, half-way, rehab)? @ -No Was there de-escalation of care discussed even if they declined (Discuss DNR or withdrawal of care, Hospice)? DNR status @ -No What co-morbidities impacted this encounter? (DM, HTN, Smoking, COPD, CAD, Cancer, CVA, ARF, Chemo, Hep., AIDS, mental health diagnosis, sleep apnea, morbid obesity)? @ -None Was patient admitted / discharged? Hospital course, mention meds given and route, prescriptions, significant lab abnormalities, going to OR and other pertinent info. @ -Patient reevaluated and feels even much better. Abdomen is soft and nontender. Patient requesting discharge home. Patient family updated on results and need for follow-up Undiagnosed new problem with uncertain prognosis? @ -No Drug Therapy requiring intensive monitoring for toxicity (Heparin, Nitro, Insulin, Cardizem)? @ -No Were any procedures done? @ -No Diagnosis/symptom? @ Abdominal pain Acute, or Chronic, or Acute on Chronic? @ -Acute Uncomplicated (without systemic symptoms) or Complicated (systemic symptoms)? @ -default Side effects of treatment? @ -No Exacerbation, Progression, or Severe Exacerbation? @ -No Poses a threat to life or bodily function? How? (Chest pain, USA, [place], pneumonia, PE, COPD, DKA, ARF, appy, cholecystitis, CVA, Diverticulitis, Homicidal, Suicidal, threat to staff... and all critical care pts) @ -No - Lab Data Result diagrams: 04/10/23 17:13 04/10/23 17:13 Lab Results 04/10/23 04/10/23 04/10/23 Range/Units 17:13 17:13 17:13 WBC 17.1 H (3.8-10.6) k/uL RBC 4.94 (4.30-5.90) m/uL Hgb 14.8 (13.0-17.5) gm/dL Hct 45.3 (39.0-53.0) % MCV 91.6 (80.0-100.0) fL MCH 29.9 (25.0-35.0) pg MCHC 32.7 (31.0-37.0) g/dL RDW 13.0 (11.5-15.5) % Plt Count 228 (150-450) k/uL MPV 7.8 Neutrophils % (Manual) 48 % Lymphocytes % (Manual) 46 % Monocytes % (Manual) 4 % Eosinophils % (Manual) 2 % Neutrophils # (Manual) 8.21 H (1.3-7.7) k/uL Lymphocytes # (Manual) 7.87 H (1.0-4.8) k/uL Monocytes # (Manual) 0.68 (0-1.0) k/uL Eosinophils # (Manual) 0.34 (0-0.7) k/uL Nucleated RBCs 0 (0-0) /100 WBC Manual Slide Review Performed PT 10.6 (9.0-12.0) sec INR 1.0 (<1.2) APTT 25.0 (22.0-30.0) sec Sodium 137 (137-145) mmol/L Potassium 4.2 (3.5-5.1) mmol/L Chloride 97 L (98-107) mmol/L Carbon Dioxide 29 (22-30) mmol/L Anion Gap 11 mmol/L BUN 17 (9-20) mg/dL Creatinine 0.81 (0.66-1.25) mg/dL Est GFR (CKD-EPI)AfAm >90 (>60 ml/min/1.73 sqM) Est GFR (CKD-EPI)NonAf 82 (>60 ml/min/1.73 sqM) Glucose 98 (74-99) mg/dL Calcium 10.1 (8.4-10.2) mg/dL Total Bilirubin 1.0 (0.2-1.3) mg/dL AST 88 H (17-59) U/L ALT 60 H (4-49) U/L Alkaline Phosphatase 133 H (38-126) U/L Total Protein 7.5 (6.3-8.2) g/dL Albumin 4.5 (3.5-5.0) g/dL Amylase 60 (30-110) U/L Lipase 84 (23-300) U/L Disposition Clinical Impression: Abdominal pain Disposition: HOME SELF-CARE Condition: Stable Instructions (If sedation given, give patient instructions): Abdominal Pain (ED) Additional Instructions: Please do follow-up to primary care physician in the next day or 2 for recheck. Have your primary care physician review CT report. Return for increased pain, vomiting, fever, worsening or changing symptoms or other concerns. Is patient prescribed a controlled substance at d/c from ED?: No Referrals: Manuel Kim MD [Primary Care Provider] - 1-2 days Time of Disposition: 19:13
[2023-04-10 17:42] LABS: HCT 45.3 % (39.0-53.0); HGB 14.8 gm/dL (13.0-17.5); MCH 29.9 pg (25.0-35.0); MCHC 32.7 g/dL (31.0-37.0); MCV 91.6 fL (80.0-100.0); Mean Platelet Volume 7.8; Platelet Count 228 k/uL (150-450); RBC 4.94 m/uL (4.30-5.90); WBC 17.1 k/uL (3.8-10.6)
[2023-04-10 17:48] LABS: Prothrombin Time 10.6 sec (9.0-12.0)
[2023-04-10 17:49] LABS: ALT 60 U/L (4-49); AST 88 U/L (17-59); African American GFR (CKD) >90 (>60 ml/min/1.73 sqM); Albumin 4.5 g/dL (3.5-5.0); Alkaline Phosphatase 133 U/L (38-126); Amylase 60 U/L (30-110); Anion Gap 11 mmol/L; Blood Urea Nitrogen 17 mg/dL (9-20); Calcium 10.1 mg/dL (8.4-10.2); Carbon Dioxide 29 mmol/L (22-30); Chloride 97 mmol/L (98-107); Glucose 98 mg/dL (74-99); Lipase 84 U/L (23-300); Non-African American GFR(CKD) 82 (>60 ml/min/1.73 sqM); Potassium 4.2 mmol/L (3.5-5.1); Sodium 137 mmol/L (137-145); Total Protein 7.5 g/dL (6.3-8.2)
--- NOTE | 2023-04-10 18:18 | CT ---
EXAMINATION TYPE: CT abdomen pelvis wo con CT DLP: 1044.4 mGycm, Automated exposure control for dose reduction was used. DATE OF EXAM: 04/10/2023 5:56 PM COMPARISON: None CLINICAL INDICATION:Male, 82 years old with history of abdominal pain; RT sided chest/ abdominal pain . TECHNIQUE: Axial CT of the abdomen and pelvis. Sagittal and coronal reformats were created on a [employer] workstation. Contrast used: mL of , (none if empty) Oral contrast used: without Oral Contrast (none if empty) FINDINGS: LOWER CHEST: Heart is enlarged for size. There is coronary artery calcifications. ABDOMEN LIVER: Scattered hepatic probable cyst. GALLBLADDER AND BILE DUCTS: Unremarkable. PANCREAS: Unremarkable. SPLEEN: Unremarkable. ADRENAL GLANDS: Unremarkable. KIDNEYS AND URETERS: No evidence of hydronephrosis or renal calculus. The ureters are unremarkable. PELVIS BLADDER: Unremarkable REPRODUCTIVE: Prostate is enlarged in size measuring 5.2 cm in transverse dimension. ABDOMEN & PELVIS STOMACH AND BOWEL: No evidence of bowel obstruction. The appendix is normal. Scattered colonic divert icula. Postsurgical changes sigmoid colon. PERITONEUM/RETROPERITONEUM: No evidence of pneumoperitoneum or free fluid. VASCULATURE: No evidence of aortic aneurysm. MUSCULOSKELETAL: No acute osseous abnormalities, mild multilevel disc degeneration changes throughout the spine. Right lateral thigh intramuscular lipoma LYMPH NODES: No gross evidence for lymphadenopathy. Scattered prominent lymph nodes are seen througho ut the retroperitoneum. Mesenteric lymph nodes are also seen in prominent predominantly in the right lower quadrant. SOFT TISSUE/ABDOMINAL WALL: Unremarkable IMPRESSION: 1. No evidence for acute abdominal process to explain the patient's pain. 2. Postsurgical changes to the sigmoid colon. 3. Scattered prominent mesenteric and retroperitoneal lymph nodes. Comparisons with any priors would be of benefit for stability. 4. Colonic diverticulosis. 5. Prostatomegaly correlate with serum PSA. 6. Scattered hypodense probable cysts throughout the liver.
[2023-04-10 18:44] LABS: Eosinophils # (M) 0.34 k/uL (0-0.7); Lymphocytes # (M) 7.87 k/uL (1.0-4.8); Monocytes # (M) 0.68 k/uL (0-1.0); Neutrophils # (M) 8.21 k/uL (1.3-7.7); Neutrophils % (M) 48 %; Nucleated Red Blood Cells 0 /100 WBC (0-0); Total Cells Counted 100
[2023-04-10 19:50] VITALS: BP 161/97; PULSE 86; TEMP 99.1
== END 2023-04-10 20:02 | disposition home or self-care (01) ==
LOC: EC 16:41
DX: K57.30 Diverticulosis of large intestine without perforation or abscess without bleeding (principal); N40.0 Benign prostatic hyperplasia without lower urinary tract symptoms; Z87.891 Personal history of nicotine dependence; Z79.82 Long term (current) use of aspirin
CPT/HCPCS: 36415; 74176; 80053; 82150; 83690; 85025; 85610; 85730; 93005; 99284

== ENCOUNTER 2024-01-03 09:29 | Inpatient (IN) | payer MEDICARE ==
--- NOTE | 2024-01-03 10:00 | XR ---
EXAMINATION TYPE: XR chest 2V DATE OF EXAM: 01/03/2024 COMPARISON: 05/28/2021 HISTORY: 83-year-old male with chest pain and shortness of breath TECHNIQUE: AP and lateral views FINDINGS: Heart mildly enlarged. Low lung volumes with crowded vascular markings. Some strandy atelectasis in t he lower lungs. No consolidation or pleural effusion. In the lower thoracic spine. IMPRESSION: Mild cardiomegaly and hypoventilatory changes. No definite acute process.
[2024-01-03 10:10] LABS: ALT 21 U/L (4-49); AST 22 U/L (17-59); African American GFR (CKD) >90 (>60 ml/min/1.73 sqM); Albumin 4.1 g/dL (3.5-5.0); Alkaline Phosphatase 113 U/L (38-126); Anion Gap 7 mmol/L; Blood Urea Nitrogen 15 mg/dL (9-20); Calcium 8.9 mg/dL (8.4-10.2); Carbon Dioxide 25 mmol/L (22-30); Chloride 103 mmol/L (98-107); Glucose 108 mg/dL (74-99); Non-African American GFR(CKD) 84 (>60 ml/min/1.73 sqM); Potassium 4.6 mmol/L (3.5-5.1); Sodium 135 mmol/L (137-145); Total Bilirubin 0.8 mg/dL (0.2-1.3); Total Protein 7.1 g/dL (6.3-8.2)
[2024-01-03 10:16] LABS: NT-Pro-B-Type Natriuretic Pept 1550 pg/mL
[2024-01-03 10:25] LABS: INR 1.1 (<1.2); Partial Thromboplastin Time 24.5 sec (22.0-30.0); Prothrombin Time 11.7 sec (10.0-12.5)
[2024-01-03 10:28] LABS: HCT 41.9 % (39.0-53.0); HGB 13.9 gm/dL (13.0-17.5); MCHC 33.1 g/dL (31.0-37.0); MCV 90.6 fL (80.0-100.0); Mean Platelet Volume 8.4; Platelet Count 228 k/uL (150-450); RBC 4.63 m/uL (4.30-5.90); RDW 13.9 % (11.5-15.5); WBC 12.3 k/uL (3.8-10.6)
[2024-01-03 11:12] LABS: Eosinophils # (M) 0.12 k/uL (0-0.7); Lymphocytes # (M) 5.17 k/uL (1.0-4.8); Metamyelocytes # (M) 0.12 k/uL (0); Metamyelocytes % 1 %; Monocytes # (M) 0.49 k/uL (0-1.0); Neutrophils # (M) 6.52 k/uL (1.3-7.7); Neutrophils % (M) 53 %; Nucleated Red Blood Cells 0 /100 WBC (0-0); Total Cells Counted 200
[2024-01-03 11:13] LABS: RBC Morphology Normal; Reactive Lymphocytes Present
[2024-01-03] MEDS ORDERED: NALOXONE 0.4 MG/ML 1 ML VIAL IV PRN (11:24)
--- NOTE | 2024-01-03 11:25 | ED ---
Chest Pain HPI - General Chief Complaint: Chest Pain Stated Complaint: Chest Pain Time Seen by Provider: 01/03/24 09:35 Source: EMS Mode of arrival: EMS Limitations: no limitations - History of Present Illness Initial Comments: 83-year-old male with past medical history of chronic A-fib, COPD not on home O2 who presents emergency department from his primary care office. States that he has had some chest pressure with shortness of breath that has been going on for a couple of weeks. He had a stress test performed at the cardiology office last week. Daughter states that the stress test was abnormal and his consumer insights intern called him in a prescription for nitro and Imdur. His follow-up appointment to get his full results is not until the . Today when the patient reported his symptoms to his primary care doctor he called the cardiology office. Cardiology office recommended that the patient be transferred into the hospital. He has never had a heart cath before. States that his discomfort is a 0 at this time. He has been using his inhalers as directed. Denies fevers, chills or cough. Has had increase in weight as well as lower extremity swelling. He has been taking his Lasix as directed. No other alleviating, precipitating or modifying factors - Related Data Home Medications Medication Instructions Recorded Confirmed Albuterol Inhaler [Ventolin Hfa 2 puff INHALATION RT-QID PRN 01/20/21 01/03/24 Inhaler] Latanoprost [Xalatan 0.005%] 1 drop BOTH EYES HS 01/20/21 01/03/24 Finasteride [Proscar] 5 mg PO DAILY 01/22/21 01/03/24 Tamsulosin [Flomax] 0.4 mg PO BID 01/22/21 01/03/24 Apixaban [Eliquis] 5 mg PO BID 01/03/24 01/03/24 Dorzolamide-Timol 2.23%/0.68% 1 drop BOTH EYES BID 01/03/24 01/03/24 [Cosopt] Fluticasone/Umeclidin/Vilanter 1 puff INHALATION RT-DAILY 01/03/24 01/03/24 [Trelegy Ellipta 200-62.5-25] Furosemide [Lasix] 20 mg PO DAILY 01/03/24 01/03/24 Isosorbide Mononitrate ER [Imdur] 30 mg PO DAILY 01/03/24 01/03/24 Nitroglycerin Sl Tabs [Nitrostat] 0.4 mg SUBLINGUAL Q5M PRN 01/03/24 01/03/24 Valsartan [Diovan] 40 mg PO DAILY 01/03/24 01/03/24 Allergies Allergy/AdvReac Type Severity Reaction Status Date / Time No Known Allergies Allergy Verified 01/03/24 11:31 Review of Systems ROS Statement: Those systems with pertinent positive or pertinent negative responses have been documented in the HPI. ROS Other: All systems not noted in ROS Statement are negative. Past Medical History Past Medical History: Atrial Fibrillation, COPD History of Any Multi-Drug Resistant Organisms: None Reported Past Surgical History: Hernia Repair Additional Past Surgical History / Comment(s): abdominal surgery 6 years ago. Past Anesthesia/Blood Transfusion Reactions: No Reported Reaction Past Psychological History: No Psychological Hx Reported Smoking Status: Former smoker Past Alcohol Use History: Daily Past Drug Use History: None Reported General Exam Limitations: no limitations General appearance: alert, in no apparent distress Head exam: Present: atraumatic, normocephalic, normal inspection Eye exam: Present: normal appearance, PERRL, EOMI. Absent: scleral icterus, conjunctival injection, periorbital swelling ENT exam: Present: normal exam, mucous membranes moist Neck exam: Present: normal inspection. Absent: tenderness, meningismus, lymphadenopathy Respiratory exam: Present: normal lung sounds bilaterally. Absent: respiratory distress, wheezes, rales, rhonchi, stridor Cardiovascular Exam: Present: regular rate, normal rhythm, normal heart sounds. Absent: systolic murmur, diastolic murmur, rubs, gallop, clicks GI/Abdominal exam: Present: soft, normal bowel sounds. Absent: distended, tenderness, guarding, rebound, rigid Extremities exam: Present: normal inspection, full ROM, normal capillary refill. Absent: tenderness, pedal edema, joint swelling, calf tenderness Back exam: Present: normal inspection Neurological exam: Present: alert, oriented X3, CN II-XII intact Psychiatric exam: Present: normal affect, normal mood Skin exam: Present: warm, dry, intact, normal color. Absent: rash Course Vital Signs 01/03/24 01/03/24 01/03/24 09:31 10:18 12:00 Temperature 97.6 F 97.6 F Pulse Rate 63 76 65 Respiratory 22 18 18 Rate Blood Pressure 148/88 136/85 154/83 O2 Sat by Pulse 94 L 95 93 L Oximetry 01/03/24 01/03/24 01/03/24 13:49 15:30 15:38 Temperature Pulse Rate 82 73 76 Respiratory 18 Rate Blood Pressure 119/73 O2 Sat by Pulse 95 Oximetry 01/03/24 16:47 Temperature Pulse Rate 82 Respiratory 18 Rate Blood Pressure 138/90 O2 Sat by Pulse 95 Oximetry Chest Pain MDM - MDM Was pt. sent in by a medical professional or institution (, PA, INTERNATIONAL OPERATIONS MANAGER, urgent care, hospital, or [facility]...) When possible be specific @ -Patient sent in by his primary care office Did you speak to anyone other than the patient for history (EMS, parent, family, police, friend...)? What history was obtained from this source @ -I spoke with the patient's daughter and EMS Did you review nursing and triage notes (agree or disagree)? Why? @ -I reviewed and agree with nursing and triage notes Were old charts reviewed (outside hosp., previous admission, EMS record, old EKG, old radiological studies, urgent care reports/EKG's, [facility] records)? Report findings @ -No old charts were reviewed Differential Diagnosis (chest pain, altered mental status, abdominal pain women, abdominal pain men, vaginal bleeding, weakness, fever, dyspnea, syncope, headache, dizziness, GI bleed, back pain, seizure, CVA, palpatations, mental health, musculoskeletal)? @ -Differential Chest Pain: Stable Angina, Unstable Angina, STEMI, NSTEMI Aortic Dissection, Pneumothorax, Musculoskeletal, Esophageal Spasm GERD, Cholecystitis, Pancreatitis, Zoster, this is not meant to be an all-inclusive list. EKG interpreted by me (3pts min.). @ -Yes and demonstrates A-fib with a rate of 63. QRS 97. QTc of 381. No acute ST segment elevations or depressions X-rays interpreted by me (1pt min.). @ -Yes and demonstrates no acute process CT interpreted by me (1pt min.). @ -None done U/S interpreted by me (1pt. min.). @ -None done What testing was considered but not performed or refused? (CT, X-rays, U/S, labs)? Why? @ -None What meds were considered but not given or refused? Why? @ -None Did you discuss the management of the patient with other professionals (professionals i.e. , PA, INTERNATIONAL OPERATIONS MANAGER, lab, RT, psych nurse, rn social work, loom control chain builder, teacher, security public safety officer, assistant case manager)? Give summary @ -Spoke with Dr. Iyer to for admission Was smoking cessation discussed for >3mins.? @ -No Was critical care preformed (if so, how long)? @ -No Were there social determinants of health that impacted care today? How? (Homelessness, low income, unemployed, alcoholism, drug addiction, transportation, low edu. Level, literacy, decrease access to med. care, correction, rehab)? @ -No Was there de-escalation of care discussed even if they declined (Discuss DNR or withdrawal of care, Hospice)? DNR status @ -No What co-morbidities impacted this encounter? (DM, HTN, Smoking, COPD, CAD, Cancer, CVA, ARF, Chemo, Hep., AIDS, mental health diagnosis, sleep apnea, morbid obesity)? @ -A-fib, COPD Was patient admitted / discharged? Hospital course, mention meds given and route, prescriptions, significant lab abnormalities, going to OR and other pertinent info. @ -Admitted. Upon arrival patient placed in room 2. Thorough history and physical exam was performed. Patient placed on continuous pulse ox and cardiac monitoring. Twelve-lead EKG is obtained. Laboratory studies are conducted. Troponin is negative. Due to chest pain with recent abnormal stress test patient will be admitted with cardiology to consult. Spoke with Dr. Iyer who will admit the patient Undiagnosed new problem with uncertain prognosis? @ -Yes Drug Therapy requiring intensive monitoring for toxicity (Heparin, Nitro, Insulin, Cardizem)? @ -No Were any procedures done? @ -No Diagnosis/symptom? @ -Acute chest pain, acute respiratory insufficiency Acute, or Chronic, or Acute on Chronic? @ -Acute Uncomplicated (without systemic symptoms) or Complicated (systemic symptoms)? @ -Complicated Side effects of treatment? @ -No Exacerbation, Progression, or Severe Exacerbation? @ -No Poses a threat to life or bodily function? How? (Chest pain, USA, [place], pneumonia, PE, COPD, DKA, ARF, appy, cholecystitis, CVA, Diverticulitis, Homicidal, Suicidal, threat to staff... and all critical care pts) @ -Yes as patient presents with chest pain Disposition Clinical Impression: Chest pain, Chronic a-fib, Respiratory insufficiency Disposition: ADMITTED IP TO THIS HOSP Condition: Stable Is patient prescribed a controlled substance at d/c from ED?: No Time of Disposition: 11:24 Decision to Admit Reason: Admit from EC Decision Date: 01/03/24 Decision Time: 11:24
[2024-01-03] MEDS: FUROSEMIDE 10 MG/ML 4 ML VIAL IV STA (12:00)
--- NOTE | 2024-01-03 14:04 | P.CRDCN ---
History of Present Illness History of present illness: HISTORY OF PRESENT ILLNESS: This is a 83-year-old male with a past medical history significant for atrial fibrillation, hypertension, and BPH. Patient follows in the office with Dr. Martínez. We have been asked to see the patient in consultation for chest pain and recent stress test. Patient examined at the bedside. Patient presented to the hospital with a chief complaint of chest pressure. He states he has been feeling chest pressure on and off for the past couple weeks along with i ntermittent shortness of breath. At the time of examination he denies any chest pain or pressure. The patient recently underwent Lexiscan stress test in the office on 12/27/2023 revealing ischemia in the LAD distribution. DIAGNOSTICS: - EKG reveals atrial fibrillation with controlled ventricular rate - Chest xray mild cardiomegaly and hypoventilatory changes. No definite acute process. - Laboratory data: WBC 12.3. Hemoglobin 13.9. Platelet count 228. Sodium 135. Potassium 4.6. BUN 15. Creatinine 0.75. Troponin negative x 1. proBNP 1550. - Current home cardiac medications include Eliquis 5 mg twice a day, valsartan 40 mg daily, Lasix 20 mg daily, Imdur 30 mg daily. - Most recent echocardiogram obtained in June 2023 revealed ejection fraction 50 to 55%, moderate to severe MR, moderate TR - Patient underwent Lexiscan stress test on 12/27/2023 revealing abnormal nuclear scan showing ischemia in the LAD distribution REVIEW OF SYSTEMS: At the time of my exam: CONSTITUTIONAL: Denies fever or chills. HEENT: Denies blurred vision, vision changes, or eye pain. Denies hemoptysis CARDIOVASCULAR: Denies chest pain. Denies orthopnea. Denies PND. Denies palpitations RESPIRATORY: Denies shortness of breath. GASTROINTESTINAL: Denies abdominal pain. Denies nausea or vomiting. HEMATOLOGIC: Denies bleeding disorders. GENITOURINARY: Denies any blood in urine. SKIN: Denies pruitis. Denies rash. PHYSICAL EXAM: VITAL SIGNS: Reviewed. GENERAL: Well-developed in no acute distress. HEENT: Head is normocephalic. Pupils are equal, round. Sclerae anicteric. Mucous membranes of the mouth are moist. Neck supple. No JVD or thyromegaly LUNGS: Respirations even and unlabored. Lungs essentially clear to auscultation bilaterally. HEART: Irregular rate and rhythm. S1 and S2 heard. ABDOMEN: Soft. Nondistended. Nontender. EXTREMITIES: Normal range of motion. No clubbing or cyanosis. Peripheral pulses intact. No lower extremity edema NEUROLOGIC: Awake and alert. Oriented x 3. ASSESSMENT: Chest pain Recent abnormal stress test revealing ischemia in the LAD distribution Permanent atrial fibrillation with controlled ventricular rate Hypertension COPD BPH PLAN: Hold Eliquis Continue additional cardiac medications Patient will be scheduled for cardiac catheterization tomorrow with Dr. Martínez Further recommendations pending patient course Nurse practitioner note has been reviewed by physician. Signing provider agrees with the documented findings, assessment, and plan of care documented by SCHOOL CLEANER as a scribe. Past Medical History Past Medical History: Atrial Fibrillation, COPD History of Any Multi-Drug Resistant Organisms: None Reported Past Surgical History: Hernia Repair Additional Past Surgical History / Comment(s): abdominal surgery 6 years ago. Past Anesthesia/Blood Transfusion Reactions: No Reported Reaction Past Psychological History: No Psychological Hx Reported Smoking Status: Former smoker Past Alcohol Use History: Daily Past Drug Use History: None Reported Medications and Allergies Home Medications Medication Instructions Recorded Confirmed Type Albuterol Inhaler [Ventolin Hfa 2 puff INHALATION RT-QID PRN 01/20/21 01/03/24 History Inhaler] Latanoprost [Xalatan 0.005%] 1 drop BOTH EYES HS 01/20/21 01/03/24 History Finasteride [Proscar] 5 mg PO DAILY 01/22/21 01/03/24 History Tamsulosin [Flomax] 0.4 mg PO BID 01/22/21 01/03/24 History Apixaban [Eliquis] 5 mg PO BID 01/03/24 01/03/24 History Dorzolamide-Timol 2.23%/0.68% 1 drop BOTH EYES BID 01/03/24 01/03/24 History [Cosopt] Fluticasone/Umeclidin/Vilanter 1 puff INHALATION RT-DAILY 01/03/24 01/03/24 History [Trelegy Ellipta 200-62.5-25] Furosemide [Lasix] 20 mg PO DAILY 01/03/24 01/03/24 History Isosorbide Mononitrate ER [Imdur] 30 mg PO DAILY 01/03/24 01/03/24 History Nitroglycerin Sl Tabs [Nitrostat] 0.4 mg SUBLINGUAL Q5M PRN 01/03/24 01/03/24 History Valsartan [Diovan] 40 mg PO DAILY 01/03/24 01/03/24 History Allergies Allergy/AdvReac Type Severity Reaction Status Date / Time No Known Allergies Allergy Verified 01/03/24 11:31 Physical Exam Vitals: Vital Signs Temp Pulse Resp BP Pulse Ox 01/03/24 12:00 97.6 F 65 18 154/83 93 L 01/03/24 10:18 76 18 136/85 95 01/03/24 09:31 97.6 F 63 22 148/88 94 L Intake and Output 01/02/24 01/03/24 01/03/24 22:59 06:59 14:59 Other: Weight 95.254 kg Results 01/03/24 09:45 01/03/24 09:45 Cardiac Enzymes 01/03/24 01/03/24 Range/Units 09:45 09:45 AST 22 (17-59) U/L Troponin I <0.012 (0.000-0.034) ng/mL Coagulation 01/03/24 Range/Units 09:45 PT 11.7 (10.0-12.5) sec APTT 24.5 (22.0-30.0) sec CBC 01/03/24 Range/Units 09:45 WBC 12.3 H (3.8-10.6) k/uL RBC 4.63 (4.30-5.90) m/uL Hgb 13.9 (13.0-17.5) gm/dL Hct 41.9 (39.0-53.0) % Plt Count 228 (150-450) k/uL Comprehensive Metabolic Panel 01/03/24 Range/Units 09:45 Sodium 135 L (137-145) mmol/L Potassium 4.6 (3.5-5.1) mmol/L Chloride 103 (98-107) mmol/L Carbon Dioxide 25 (22-30) mmol/L BUN 15 (9-20) mg/dL Creatinine 0.75 (0.66-1.25) mg/dL Glucose 108 H (74-99) mg/dL Calcium 8.9 (8.4-10.2) mg/dL AST 22 (17-59) U/L ALT 21 (4-49) U/L Alkaline Phosphatase 113 (38-126) U/L Total Protein 7.1 (6.3-8.2) g/dL Albumin 4.1 (3.5-5.0) g/dL Current Medications Generic Name Dose Route Start Last Admin Trade Name Freq PRN Reason Stop Dose Admin Naloxone HCl 0.2 mg 01/03/24 11:24 Naloxone 0.4 Mg/Ml 1 Ml Vial IV Q2M PRN Opioid Reversal Intake and Output 01/02/24 01/03/24 01/03/24 22:59 06:59 14:59 Other: Weight 95.254 kg Patient Weight 01/04/24 06:59 Weight 95.254 kg 01/03/24 09:45 01/03/24 09:45
[2024-01-03] MEDS ORDERED: NITROGLYCERIN SL TABS 0.4 MG TAB SUBLINGUAL PRN (14:23)
[2024-01-03] MEDS: IPRATROPIUM 0.5 MG/2.5 ML NEBU INHALATION SCH (15:30)
--- NOTE | 2024-01-03 22:26 | P.HPIM ---
History of Present Illness H&P Date: 01/03/24 Chief Complaint: Chest pain/pressure Patient is a 83-year-old male with a past medical history of COPD not on home O2, atrial fibrillation on anticoagulation with Eliquis, BPH, hypertension and recent abnormal stress test presents to ER with complaints of chest pain/pressure. Patient was sent to ER from his primary care physician's office. Chest pressure worsens with shortness of breath which has been ongoing for the past couple of weeks. Patient was seen by cardiology in the office recently and had stress test. Stress test was noted to be abnormal and prescription was sent for Imdur.. Patient otherwise denies any nausea or vomiting. Patient did have shortness of breath and was using inhalers at home. Cough without any sputum production. Denies any recent illnesses. Chest x-ray showed mild cardiomegaly and hypoventilatory changes. No definite acute process. EKG showed atrial fibrillation with aberrant conduction or ventricular premature complexes. Laboratory data showed WBC 12.3 hemoglobin 13.9 and platelets 228 Sodium 135 potassium 4.6 chloride 103 with show bicarb is 25 sodium 135 potassium 4.6, BUN 15 and creatinine 0.75 and blood sugar 108 proBNP 1550 Troponin x 3 negative. Liver enzymes are not elevated. Patient was given a dose of aspirin statin and Lasix 40 mg IV x 1 in the ER. Review of Systems Constitutional: Patient denies any fever or chills . No generalized weakness or weight loss. Abdomen: Patient denied nausea vomiting and diarrhea and abdominal pain. Cardiovascular: Patient was complaining of chest pressure and short of breath no palpitations. No worsening leg swelling Respiratory: patient denied any cough is from production. Mild shortness of breath Neurologic: Patient denied any numbness or tingling headache. Musculoskeletal: Patient denies any complaints of joint swelling or deformity. Skin: Negative Psychiatric: Negative Endocrine: No heat or cold intolerance. No recent weight gain. Genitourinary: No dysuria or hematuria. All other 14 point ROS negative except the above Past Medical History Past Medical History: Atrial Fibrillation, COPD History of Any Multi-Drug Resistant Organisms: None Reported Past Surgical History: Hernia Repair Additional Past Surgical History / Comment(s): abdominal surgery 6 years ago. Past Anesthesia/Blood Transfusion Reactions: No Reported Reaction Past Psychological History: No Psychological Hx Reported Smoking Status: Former smoker Past Alcohol Use History: Daily Past Drug Use History: None Reported Medications and Allergies Home Medications Medication Instructions Recorded Confirmed Type Albuterol Inhaler [Ventolin Hfa 2 puff INHALATION RT-QID PRN 01/20/21 01/03/24 History Inhaler] Latanoprost [Xalatan 0.005%] 1 drop BOTH EYES HS 01/20/21 01/03/24 History Finasteride [Proscar] 5 mg PO DAILY 01/22/21 01/03/24 History Tamsulosin [Flomax] 0.4 mg PO BID 01/22/21 01/03/24 History Apixaban [Eliquis] 5 mg PO BID 01/03/24 01/03/24 History Dorzolamide-Timol 2.23%/0.68% 1 drop BOTH EYES BID 01/03/24 01/03/24 History [Cosopt] Fluticasone/Umeclidin/Vilanter 1 puff INHALATION RT-DAILY 01/03/24 01/03/24 History [Trelegy Ellipta 200-62.5-25] Furosemide [Lasix] 20 mg PO DAILY 01/03/24 01/03/24 History Isosorbide Mononitrate ER [Imdur] 30 mg PO DAILY 01/03/24 01/03/24 History Nitroglycerin Sl Tabs [Nitrostat] 0.4 mg SUBLINGUAL Q5M PRN 01/03/24 01/03/24 History Valsartan [Diovan] 40 mg PO DAILY 01/03/24 01/03/24 History Allergies Allergy/AdvReac Type Severity Reaction Status Date / Time No Known Allergies Allergy Verified 01/03/24 11:31 Physical Exam Vitals: Vital Signs Temp Pulse Resp BP Pulse Ox 01/03/24 12:00 97.6 F 65 18 154/83 93 L 01/03/24 10:18 76 18 136/85 95 01/03/24 09:31 97.6 F 63 22 148/88 94 L Intake and Output 01/02/24 01/03/24 01/03/24 22:59 06:59 14:59 Other: Weight 95.254 kg PHYSICAL EXAMINATION: Patient is lying in the bed comfortably, no acute distress, awake alert and oriented.. HEENT: Normocephalic. Neck is supple. Pupils reactive. Nostrils clear. Oral cavity is moist. Neck reveals no JVD, carotid bruits, or thyromegaly. CHEST EXAMINATION: Trachea is central. Symmetrical expansion. Bibasilar diminished sounds. Mild expiratory wheeze. Nonlabored breathing.. CARDIAC: Normal S1, S2 with no gallops. Irregularly irregular rhythm. ABDOMEN: Soft. Bowel sounds normal. No organomegaly. No abdominal bruits. Extremities: Trace bilateral pedal edema. No clubbing or cyanosis Neurologically awake, alert, oriented x 2-3. Able to move all extremities. No gross focal deficits noted Skin: No rash or skin lesions. Psychiatric: Coperative. Nonsuicidal Musculoskeletal: No joint swelling or deformity. Normal range of motion. Results CBC & Chem 7: 01/03/24 09:45 01/03/24 09:45 Labs: Abnormal Lab Results - Last 24 Hours (Table) 01/03/24 01/03/24 Range/Units 09:45 09:45 WBC 12.3 H (3.8-10.6) k/uL Lymphocytes # (Manual) 5.17 H (1.0-4.8) k/uL Metamyelocytes # (Man) 0.12 H (0) k/uL Sodium 135 L (137-145) mmol/L Glucose 108 H (74-99) mg/dL Thrombosis Risk Factor Assmnt - DVT/VTE Prophylaxis DVT/VTE Prophylaxis: Pharmacologic Prophylaxis ordered Assessment and Plan Assessment: Chest pain. Rule out ACS. Recent abnormal stress test at [facility] office. Permanent atrial fibrillation with controlled ventricular rate. On anticoagulation with Eliquis. COPD not on home oxygen Mild leukocytosis 12.3 on admission Hypertension BPH Daily alcohol use Mild cognitive impairment DVT prophylaxis patient is already on full anticoagulation.. Plan: Patient will be continued on telemetry. Troponin x 2 negative. Patient was started on heparin drip. Eliquis is on hold. Cardiology is planning for catheterization tomorrow. Patient will be started on DuoNeb send continue Symbicort and oxygen supplementation as needed. Continue other home medications and follow-up closely. Time with Patient: Greater than 30
[2024-01-03] MEDS: TAMSULOSIN 0.4 MG CAP.ER.24H PO SCH (22:32)
[2024-01-03] MEDS: DORZOLAMIDE-TIMOLOL 2.23%/0.68 10ML BTL BOTH EYES SCH (22:32)
[2024-01-03] MEDS: LATANOPROST 0.005% OPHTH DROPS 2.5 ML BTL BOTH EYES SCH (22:32)
[2024-01-04] MEDS: SODIUM CHLORIDE 0.9% 1,000 ML in EMPTY BAG 1 BAG IV SCH (01:25)
[2024-01-04] MEDS: ALPRAZolam 0.25 MG TAB PO PRN (01:34)
[2024-01-04] MEDS: ASPIRIN 325 MG TAB PO ONE (04:54)
[2024-01-04] MEDS: ATORVASTATIN 80 MG TAB PO ONE (04:54)
[2024-01-04] MEDS: ISOSORBIDE MONONITRATE ER 30 MG TAB.ER.24H PO SCH (04:55)
[2024-01-04] MEDS: VALSARTAN 40 MG TAB PO SCH (05:15)
[2024-01-04 06:26] LABS: Glucose,Whole Blood 106 mg/dL (70-110)
[2024-01-04] MEDS ORDERED: HEPARIN SODIUM,PORCINE (1 ML) 2,500 UNIT in SODIUM CHLORIDE 0.9% 250 ML IRRIGATION PRN (07:00)
[2024-01-04] MEDS ORDERED: HEPARIN SODIUM,PORCINE 10,000 UNIT in SODIUM CHLORIDE 0.9% 1,000 ML IRRIGATION PRN (07:00)
[2024-01-04] MEDS: IV FLUID CONTINUATION 1,000 ML IV ONE (07:10)
[2024-01-04] MEDS: LIDOCAINE 1% INJ 10MG/ML (20 ML MDV) SQ ONE (07:31)
[2024-01-04 07:32] LABS: Appearance,Urine Clear (Clear); Bilirubin,Urine Negative (Negative); Blood,Urine Negative (Negative); Color,Urine Yellow; Glucose,Urine (UA) Negative (Negative); Ketones,Urine Negative (Negative); Leukocyte Esterase,Urine Negative (Negative); Nitrite,Urine Negative (Negative); PH, Urine 5.5 (5.0-8.0); Protein,Urine Trace (Negative); Specific Gravity,Urine 1.017 (1.001-1.035); Urobilinogen,Urine <2.0 mg/dL (<2.0)
[2024-01-04] MEDS: MIDAZOLAM 2 MG/2 ML VIAL IVP ONE (07:33)
[2024-01-04] MEDS: fentaNYL (PF) 50 MCG/1 ML VIAL IVP ONE (07:34)
[2024-01-04] MEDS: VERAPAMIL 2.5 MG/ML 4 ML VIAL INTRAARTER ONE (07:35)
[2024-01-04] MEDS: HEPARIN SODIUM 1,000 UN/ML (10ML VL) IVP ONE (07:42)
[2024-01-04] MEDS ORDERED: IPRATROPIUM 0.5 MG/2.5 ML NEBU INHALATION SCH (08:00)
[2024-01-04] MEDS: IOPAMIDOL-370 100ML BTL INTRATHECA ONE (08:08)
[2024-01-04] MEDS ORDERED: RX INFO: IV CONTRAST WAS GIVEN 1 EACH MISC MISCELLANE PRN (08:12)
[2024-01-04] MEDS: IPRATROPIUM-ALBUTEROL 3 ML NEB INHALATION PRN (08:55)
[2024-01-04] MEDS: SYMBICORT 160-4.5 MCG INHALER INHALATION SCH (08:55)
[2024-01-04 09:00] LABS: HCT 38.9 % (39.6-50.0); HGB 12.8 g/dL (13.0-17.0); MCH 29.5 pg (27.0-32.0); MCHC 32.9 g/dL (32.0-37.0); MCV 89.6 FL (80.0-97.0); NRBC Per 100 WBC 0 X 10*3/uL (0.00-0.01); Platelet Count 241 X 10*3/uL (140-440); RBC 4.34 X 10*6/uL (4.40-5.60); WBC 14.15 X 10*3/uL (4.50-10.00)
--- NOTE | 2024-01-04 09:04 | CC ---
CARDIAC CATHETERIZATION REPORT INDICATIONS: Unstable angina. PROCEDURE NOTE: After obtaining informed consent, left heart catheterization and coronary angiogram were performed via the right radial artery using standard Candace catheters. The patient tolerated the procedure well without any obvious immediate complications. The patient received moderate conscious sedation. Total sedation time was 20 minutes. Right radial artery access was obtained using Seldinger technique. A 6-Frisian sheath was placed. Catheters and wires were floated into the ascending aorta under fluoroscopic guidance. The patient received verapamil and heparin per protocol and a TR band will be used for hemostasis. FINDINGS: Right coronary artery: Right coronary artery is a large dominant vessel that shows irregular and ectatic changes in the proximal and midportion with the PDA showing 80% to 90% segmental focal stenosis. There are collaterals from the right coronary artery to the distal LAD. Left main coronary artery appears calcified, but is free of stenosis, divides into left anterior descending coronary artery and circumflex coronary artery. LAD is totally occluded in its mid portion gives off a large caliber diagonal branch that shows focal 80% to 90% stenosis. There are multiple segmental lesions. Circ itself is free of significant disease, gives off 2 fair caliber OM branches that show 70% to 80% stenosis. CONCLUSIONS: Three-vessel coronary artery disease as described above with a chronically occluded LAD, severe stenosis involving PDA and the diagonal branch and OM branch. PLAN: I am going to review angiographic data with Dr. Hyde, the on-call stamp press operator and decide on further course of action. MMOSCARL / IJN: [id number] /
[2024-01-04 09:07] LABS: Blood Urea Nitrogen 13.6 mg/dL (9.0-27.0); Carbon Dioxide 27.1 mmol/L (21.6-31.8); Chloride 97 mmol/L (96-109); Glucose 111 mg/dL (70-110); Potassium 4.1 mmol/L (3.5-5.5); Sodium 133 mmol/L (135-145)
[2024-01-04 09:32] LABS: Lymphocytes # (M) 7.36 X 10*3/uL (0.90-5.00)
[2024-01-04 09:37] LABS: Basophils # (M) 0.28 X 10*3/uL (0.00-0.10); Eosinophils # (M) 0.42 X 10*3/uL (0.04-0.35); Monocytes # (M) 0.28 X 10*3/uL (0.20-1.00); Nucleated Red Blood Cells 1 /100 WBCS; RBC Morphology Normal (Normal)
[2024-01-04] MEDS: FUROSEMIDE 20 MG TAB PO SCH (09:37)
[2024-01-04] MEDS: FINASTERIDE 5 MG TAB PO SCH (09:37)
[2024-01-04] MEDS: SODIUM CHLORIDE 0.9% 1,000 ML IV SCH (09:37)
[2024-01-04 09:57] LABS: Neutrophils % (M) 41 %
--- NOTE | 2024-01-04 17:48 | P.GSCN ---
History of Present Illness Consult date: 01/04/24 Reason for Consult: This is an 83-year-old gentleman who follows on an outpatient basis for his primary care service with Dr. Manuel Kim. The patient has a past medical history significant for hypertension, atrial fibrillation on Eliquis for anticoagulation as an outpatient, and BPH. He presented to the emergency department here at [facility] on January 03, 2024 from his primary care office with complaints of progressive shortness of breath. He also reports that he has been having episodes of of shortness of breath which is progressively gotten worse over the last couple of months and has been associated at times with chest pressure and chest heaviness. He denies any recent fever, chills, nausea, vomiting, headache, diarrhea, constipation, lightheadedness, palpitations, presyncope or syncope. 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 Serial troponins were less than 0.012. Subsequently due to the patient's presenting symptoms the patient was recommended to undergo a cardiac catheterization which was completed today January 04, 2024 which demonstrated triple-vessel coronary artery disease with a chronically occluded LAD, severe stenosis involving the PDA and the diagonal branch and OM branch. Due to the findings on the cardiac catheterization a consult was placed to Dr. Amrik Gentile from cardiothoracic surgery for further evaluation and treatment recommendations including myocardial vascularization surgery. Review of Systems A 14 point review of systems was completed and was negative except as mentioned in the HPI. Past Medical History Past Medical History: Atrial Fibrillation, COPD, Hypertension, Prostate Disorder (Thank you) History of Any Multi-Drug Resistant Organisms: None Reported Past Surgical History: Hernia Repair Additional Past Surgical History / Comment(s): abdominal surgery 6 years ago. Past Anesthesia/Blood Transfusion Reactions: No Reported Reaction Past Psychological History: No Psychological Hx Reported Smoking Status: Former smoker Past Alcohol Use History: Daily Past Drug Use History: None Reported Medications and Allergies Home Medications Medication Instructions Recorded Confirmed Type Albuterol Inhaler [Ventolin Hfa 2 puff INHALATION RT-QID PRN 01/20/21 01/03/24 History Inhaler] Latanoprost [Xalatan 0.005%] 1 drop BOTH EYES HS 01/20/21 01/03/24 History Finasteride [Proscar] 5 mg PO DAILY 04/02/21 03/13/24 History Tamsulosin [Flomax] 0.4 mg PO BID 01/22/21 01/03/24 History Apixaban [Eliquis] 5 mg PO BID 01/03/24 01/03/24 History Dorzolamide-Timol 2.23%/0.68% 1 drop BOTH EYES BID 01/03/24 01/03/24 History [Cosopt] Fluticasone/Umeclidin/Vilanter 1 puff INHALATION RT-DAILY 01/03/24 01/03/24 History [Trelegy Ellipta 200-62.5-25] Furosemide [Lasix] 20 mg PO DAILY 01/03/24 01/03/24 History Isosorbide Mononitrate ER [Imdur] 30 mg PO DAILY 01/03/24 01/03/24 History Nitroglycerin Sl Tabs [Nitrostat] 0.4 mg SUBLINGUAL Q5M PRN 01/03/24 01/03/24 History Valsartan [Diovan] 40 mg PO DAILY 01/03/24 01/03/24 History Allergies Allergy/AdvReac Type Severity Reaction Status Date / Time No Known Allergies Allergy Verified 01/03/24 11:31 Surgical - Exam Vital Signs Temp Pulse Resp BP Pulse Ox 97.6 F 63 22 148/88 94 L 01/03/24 09:31 01/03/24 09:31 01/03/24 09:31 01/03/24 09:31 01/03/24 09:31 - General VITAL SIGNS: Reviewed. GENERAL: Well-developed in no acute distress. Sitting up to the bedside chair. HEENT: Head is normocephalic. Pupils are equal, round. Sclerae anicteric. Mucous membranes of the mouth are moist. Neck supple. No JVD or thyromegaly LUNGS: Respirations symmetrical and nonlabored. Lungs essentially clear to auscultation bilaterally. No wheezes, rhonchi or crackles. HEART: Irregular rate and rhythm. S1 and S2 present, negative for S3, gallop or murmur. ABDOMEN: Soft. Nondistended. Nontender. No organomegaly appreciated. No guarding or rigidity. EXTREMITIES: Normal range of motion. Skin is warm and dry. No clubbing or cyanosis is present. Peripheral pulses intact. No lower extremity edema NEUROLOGIC: Awake and alert. Oriented x 3. Results - Labs 01/04/24 04:51 01/04/24 04:51 Abnormal Lab Results - Last 24 Hours (Table) 01/04/24 01/04/24 01/04/24 Range/Units 04:51 04:51 06:28 WBC 14.15 H (4.50-10.00) X 10*3/uL RBC 4.34 L (4.40-5.60) X 10*6/uL Hgb 12.8 L (13.0-17.0) g/dL Hct 38.9 L (39.6-50.0) % Lymphocytes # (Manual) 7.36 H (0.90-5.00) X 10*3/uL Eosinophils # (Manual) 0.42 H (0.04-0.35) X 10*3/uL Basophils # (Manual) 0.28 H (0.00-0.10) X 10*3/uL Sodium 133 L (135-145) mmol/L Glucose 111 H (70-110) mg/dL Urine Protein Trace H (Negative) Diabetes panel 01/04/24 Range/Units 04:51 Sodium 133 L (135-145) mmol/L Potassium 4.1 (3.5-5.5) mmol/L Chloride 97 (96-109) mmol/L Carbon Dioxide 27.1 (21.6-31.8) mmol/L BUN 13.6 (9.0-27.0) mg/dL Creatinine 0.8 (0.6-1.5) mg/dL Glucose 111 H (70-110) mg/dL Calcium 9.0 (8.7-10.3) mg/dL Calcium panel 01/04/24 Range/Units 04:51 Calcium 9.0 (8.7-10.3) mg/dL Pituitary panel 01/04/24 Range/Units 04:51 Sodium 133 L (135-145) mmol/L Potassium 4.1 (3.5-5.5) mmol/L Chloride 97 (96-109) mmol/L Carbon Dioxide 27.1 (21.6-31.8) mmol/L BUN 13.6 (9.0-27.0) mg/dL Creatinine 0.8 (0.6-1.5) mg/dL Glucose 111 H (70-110) mg/dL Calcium 9.0 (8.7-10.3) mg/dL Adrenal panel 01/04/24 Range/Units 04:51 Sodium 133 L (135-145) mmol/L Potassium 4.1 (3.5-5.5) mmol/L Chloride 97 (96-109) mmol/L Carbon Dioxide 27.1 (21.6-31.8) mmol/L BUN 13.6 (9.0-27.0) mg/dL Creatinine 0.8 (0.6-1.5) mg/dL Glucose 111 H (70-110) mg/dL Calcium 9.0 (8.7-10.3) mg/dL - Imaging Additional studies: Cardiac catheterization films were reviewed by Dr. Gentile Assessment and Plan Assessment: Multivessel coronary artery disease Shortness of breath, chest pain/pressure, likely secondary to above Hypertension COPD BPH Plan: The patient was seen and examined at his bedside on the 6 floor cardiac observation unit in conjunction with Dr. Gentile from cardiothoracic surgery. His chart and diagnostics were reviewed. Dr. Gentile discussed with the patient and the patient's daughters present at his bedside findings on the cardiac catheterization, treatment options were discussed. Dr. Gentile discussed with the patient and his daughter present at his bedside, that he is not a surgical candidate at this time given his frailty and the anatomy of his LAD. Recommendations for medical management versus PCI. Continue to maximize medical management. Medical management other comorbidities per primary care service and cardiology service. Thank you Dr. Martínez for this consult, please reconsult for any further questions regarding surgical recommendations. I have personally seen and examined the patient, performed the documentation and the assessment and plan as written. Number of minutes spent on the visit: 30. BRETT Resendiz Attending Addendum: Pt seen and evaluated with HAND TRUCKER above. Agree with his assessment and plan. This is an 83 year-old M with a hx of dementia and blindness 2/2 macular degeneration who presented with chest pain. 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 Given his age and co-morbidities, recommend PCI and medical management at this time. I spent 45 minutes reviewing the plan of care with the team and the patient and his family. Time with Patient: Greater than 30
[2024-01-04] MEDS: ALPRAZolam 0.5 MG TAB PO PRN (21:21)
--- NOTE | 2024-01-05 01:27 | P.PN ---
Subjective Progress Note Date: 01/04/24 Patient is a 83-year-old male with a past medical history of COPD not on home O2, atrial fibrillation on anticoagulation with Eliquis, BPH, hypertension and recent abnormal stress test presents to ER with complaints of chest pain/pressure. Patient was sent to ER from his primary care physician's office. Chest pressure worsens with shortness of breath which has been ongoing for the past couple of weeks. Patient was seen by cardiology in the office recently and had stress test. Stress test was noted to be abnormal and prescription was sent for Imdur.. Patient otherwise denies any nausea or vomiting. Patient did have shortness of breath and was using inhalers at home. Cough without any sputum production. Denies any recent illnesses. Chest x-ray showed mild cardiomegaly and hypoventilatory changes. No definite acute process. EKG showed atrial fibrillation with aberrant conduction or ventricular premature complexes. Laboratory data showed WBC 12.3 hemoglobin 13.9 and platelets 228 Sodium 135 potassium 4.6 chloride 103 with show bicarb is 25 sodium 135 potassium 4.6, BUN 15 and creatinine 0.75 and blood sugar 108 proBNP 1550 Troponin x 3 negative. Liver enzymes are not elevated. Patient was given a dose of aspirin statin and Lasix 40 mg IV x 1 in the ER. 01/04/2024 Patient is currently resting in the bed. Awake alert and oriented x 3. No complaints of chest pain. Shortness of breath did improve. No nausea vomiting or abdominal pain or diarrhea. Currently on 2 L oxygen via nasal cannula. Patient has been afebrile. No cough or sputum production. Patient is s/p cardiac catheterization today showed three-vessel coronary artery disease with chronically occluded LAD, severe stenosis involving PDA and the diagonal branch and OM branch. CT surgery was consulted. Laboratory data showed WBC 14.1 Hemoglobin 12.8 and platelets 241, sodium 133 potassium 4.1 chloride 97 bicarb is 27.1 BUN 13.6 and creatinine 0.8 and blood sugar 111 Current medications reviewed. Objective - Vital Signs Vital signs: Vital Signs Temp 97.4 F L 01/04/24 01:47 Pulse 68 01/04/24 09:14 Resp 16 01/04/24 01:47 BP 146/80 01/04/24 05:15 Pulse Ox 96 01/04/24 08:58 FiO2 Intake & Output 01/03/24 01/04/24 01/04/24 18:59 06:59 18:59 Intake Total 600 Output Total 1000 Balance -1000 600 Weight 95.254 kg Intake: IV 600 Output: Urine 1000 Other: # Voids 2 1 - Exam PHYSICAL EXAMINATION: Patient is lying in the bed comfortably, no acute distress, awake alert and oriented.. HEENT: Normocephalic. Neck is supple. Pupils reactive. Nostrils clear. Oral cavity is moist. Neck reveals no JVD, carotid bruits, or thyromegaly. CHEST EXAMINATION: Trachea is central. Symmetrical expansion. Bilateral prolonged expiration. No wheezing or rhonchi.. CARDIAC: Normal S1, S2 with no gallops. No murmurs ABDOMEN: Soft. Bowel sounds normal. No organomegaly. No abdominal bruits. Extremities: reveal no edema. No clubbing or cyanosis Neurologically awake, alert, oriented x3 with well-coordinated movements. No focal deficits noted Skin: No rash or skin lesions. Psychiatric: Coperative. Nonsuicidal Musculoskeletal: No joint swelling or deformity. Normal range of motion. - Labs CBC & Chem 7: 01/04/24 04:51 01/04/24 04:51 Labs: Abnormal Lab Results - Last 24 Hours (Table) 01/03/24 01/03/24 01/04/24 Range/Units 09:45 09:45 04:51 WBC 12.3 H 14.15 H (3.8-10.6) k/uL RBC 4.34 L (4.40-5.60) X 10*6/uL Hgb 12.8 L (13.0-17.0) g/dL Hct 38.9 L (39.6-50.0) % Lymphocytes # (Manual) 5.17 H 7.36 H (1.0-4.8) k/uL Eosinophils # (Manual) 0.42 H (0.04-0.35) X 10*3/uL Basophils # (Manual) 0.28 H (0.00-0.10) X 10*3/uL Metamyelocytes # (Man) 0.12 H (0) k/uL Sodium 135 L (137-145) mmol/L Glucose 108 H (74-99) mg/dL Urine Protein (Negative) 01/04/24 01/04/24 Range/Units 04:51 06:28 WBC (3.8-10.6) k/uL RBC (4.40-5.60) X 10*6/uL Hgb (13.0-17.0) g/dL Hct (39.6-50.0) % Lymphocytes # (Manual) (1.0-4.8) k/uL Eosinophils # (Manual) (0.04-0.35) X 10*3/uL Basophils # (Manual) (0.00-0.10) X 10*3/uL Metamyelocytes # (Man) (0) k/uL Sodium 133 L (137-145) mmol/L Glucose 111 H (74-99) mg/dL Urine Protein Trace H (Negative) Assessment and Plan Assessment: Chest pain with recent abnormal outpatient stress test. Status post cardiac catheterization showed triple-vessel disease. Permanent atrial fibrillation with controlled ventricular rate. On anticoag ulation with Eliquis. COPD not on home oxygen Mild leukocytosis 12.3 on admission Hypertension BPH Daily alcohol use Mild cognitive impairment Obesity with BMI 33.9 DVT prophylaxis patient is already on full anticoagulation.. Plan: Patient will be continued on telemetry. Troponin x 3 negative. Eliquis is on hold. Patient is s/p cardiac catheterization today, showed triple-vessel disease. CT surgery consult for further evaluation. Patient follows with Dr. Bradshaw, pulmonary as an outpatient. Patient will be continued on aspirin, statin, Imdur. Also on valsartan and Lasix. Patient will be continued on DuoNeb send continue Symbicort and oxygen supplementation as needed. Follow-up closely. Prognosis is guarded.. Time with Patient: Greater than 30
--- NOTE | 2024-01-05 07:20 | XR ---
EXAMINATION TYPE: XR chest 1V DATE OF EXAM: 01/05/2024 COMPARISON: 01/03/2024 HISTORY: 83-year-old male COPD TECHNIQUE: Single frontal view of the chest is obtained. FINDINGS: Low lung volumes. Crowded vascular markings. Interstitial density slightly increased. Left basilar opacity appears increased umbilical this region is not well penetrated limiting its assessme nt. Atherosclerotic arch calcifications. IMPRESSION: 1. Hypoventilatory changes with increased interstitial density possible vascular crowding versus deve loping pulmonary vascular congestion. 2. Left base underpenetrated and not well assessed.
[2024-01-05 10:24] LABS: HCT 40.1 % (39.6-50.0); HGB 12.9 g/dL (13.0-17.0); MCH 29.3 pg (27.0-32.0); MCHC 32.2 g/dL (32.0-37.0); MCV 91.1 FL (80.0-97.0); Mean Platelet Volume 10.2 FL (9.5-12.2); NRBC Per 100 WBC 0 X 10*3/uL (0.00-0.01); Platelet Count 227 X 10*3/uL (140-440); RDW 13.8 % (11.5-14.5); WBC 12.94 X 10*3/uL (4.50-10.00)
[2024-01-05] MEDS: ASPIRIN 325 MG TAB PO STA ×2 (10:34→10:56)
[2024-01-05] MEDS: ATORVASTATIN 80 MG TAB PO STA ×2 (10:34→10:56)
[2024-01-05 10:41] LABS: Blood Urea Nitrogen 13.2 mg/dL (9.0-27.0); Carbon Dioxide 24.5 mmol/L (21.6-31.8); Chloride 101 mmol/L (96-109); Glucose 99 mg/dL (70-110); Potassium 4.6 mmol/L (3.5-5.5); Sodium 136 mmol/L (135-145)
[2024-01-05 10:42] LABS: Calcium 8.8 mg/dL (8.7-10.3)
[2024-01-05] MEDS ORDERED: LIDOCAINE 1% INJ 10MG/ML (20 ML MDV) ONE (11:02)
[2024-01-05] MEDS ORDERED: VERAPAMIL 2.5 MG/ML 2 ML AMP ONE (11:02)
[2024-01-05] MEDS ORDERED: HEPARIN SODIUM 1,000 UN/ML (10ML VL) ONE (11:02)
[2024-01-05 11:08] LABS: Basophils # (M) 0 X 10*3/uL (0.00-0.10)
[2024-01-05] MEDS: MIDAZOLAM 2 MG/2 ML VIAL IVP ONE (11:37)
[2024-01-05] MEDS: LIDOCAINE 1% INJ 10MG/ML (20 ML MDV) SQ ONE (11:38)
[2024-01-05] MEDS: VERAPAMIL SYRINGE (5 MG/10 ML) INTRAARTER ONE (11:38)
[2024-01-05] MEDS: HEPARIN SODIUM 1,000 UN/ML (10ML VL) IVP ONE ×6 (11:41→13:52)
[2024-01-05 12:14] LABS: Eosinophils # (M) 0.26 X 10*3/uL (0.04-0.35); Monocytes # (M) 0.78 X 10*3/uL (0.20-1.00); Neutrophils # (M) 5.31 X 10*3/uL (1.80-7.70); Neutrophils % (M) 41 %
[2024-01-05] MEDS ORDERED: MORPHINE SULFATE 4 MG/ML SYRINGE ONE (12:37)
[2024-01-05] MEDS: MORPHINE SULFATE 4 MG/ML SYRINGE IVP ONE ×2 (12:39→12:53)
--- NOTE | 2024-01-05 13:09 | P.PN ---
Subjective HISTORY OF PRESENT ILLNESS: This is a 83-year-old male with a past medical history significant for atrial fibrillation, hypertension, and BPH. Patient follows in the office with Dr. Martínez. We have been asked to see the patient in consultation for chest pain and recent stress test. Patient examined at the bedside. Patient presented to the hospital with a chief complaint of chest pressure. He states he has been feeling chest pressure on and off for the past couple weeks along with intermittent shortness of breath. At the time of examination he denies any chest pain or pressure. The patient recently underwent Lexiscan stress test in the office on 12/27/2023 revealing ischemia in the LAD distribution. DIAGNOSTICS: - EKG reveals atrial fibrillation with controlled ventricular rate - Chest xray mild cardiomegaly and hypoventilatory changes. No definite acute process. - Laboratory data: WBC 12.3. Hemoglobin 13.9. Platelet count 228. Sodium 135. Potassium 4.6. BUN 15. Creatinine 0.75. Troponin negative x 1. proBNP 1550. - Current home cardiac medications include Eliquis 5 mg twice a day, valsartan 40 mg daily, Lasix 20 mg daily, Imdur 30 mg daily. - Most recent echocardiogram obtained in June 2023 revealed ejection f raction 50 to 55%, moderate to severe MR, moderate TR - Patient underwent Lexiscan stress test on 12/27/2023 revealing abnormal nuclear scan showing ischemia in the LAD distribution 01/05/2024 Patient is status postcardiac catheterization with Dr. Martínez on 01/04/2024 revealing three-vessel coronary artery disease including chronically occluded LAD, severe stenosis involving the PDA and the diagonal branch and OM branch. CT surgery was consulted for evaluation. He was evaluated by Dr. Gentile and due to his age and comorbidities, patient was found not to be a candidate for CABG. Patient examined this morning at the bedside. He is sitting up in the chair. Patient's daughter is present. The patient was ambulating this morning in the hallway with complaints of shortness of breath and mild chest pressure. PHYSICAL EXAM: VITAL SIGNS: Reviewed. GENERAL: Well-developed in no acute distress. HEENT: Head is normocephalic. Pupils are equal, round. Sclerae anicteric. Mucous membranes of the mouth are moist. Neck supple. No JVD or thyromegaly LUNGS: Respirations even and unlabored. Lungs essentially clear to auscultation bilaterally. HEART: Irregular rate and rhythm. S1 and S2 heard. ABDOMEN: Soft. Nondistended. Nontender. EXTREMITIES: Normal range of motion. No clubbing or cyanosis. Peripheral pulses intact. No lower extremity edema NEUROLOGIC: Awake and alert. Oriented x 3. ASSESSMENT: Chest pain Recent abnormal stress test revealing ischemia in the LAD distribution S/P cardiac catheterization revealing three-vessel coronary artery disease including chronically occluded LAD, severe stenosis involving the PDA and the diagonal branch and OM branch Permanent atrial fibrillation with controlled ventricular rate Hypertension COPD BPH PLAN: Continue current cardiac medications Discussed PCI versus medical management with the patient and his daughter. Due to patient's continued symptoms while ambulating this morning in the hallway, he will undergo PCI today with Dr. Hyde May resume Eliquis tomorrow morning Further recommendations pending patient course Nurse practitioner note has been reviewed by physician. Signing provider agrees with the documented findings, assessment, and plan of care documented by DENTAL INSURANCE COORDINATOR as a scribe. Objective - Vital Signs Vital signs: Vital Signs Temp 97.6 F 01/05/24 07:30 Pulse 76 01/05/24 08:25 Resp 18 01/05/24 07:30 BP 144/90 01/05/24 07:30 Pulse Ox 97 01/05/24 07:30 FiO2 Intake & Output 01/04/24 01/05/24 01/05/24 18:59 06:59 18:59 Intake Total 836 Balance 836 Intake: IV 600 Oral 236 Other: Voiding Method Toilet Toilet Toilet Urinal Urinal Urinal # Voids 1 1 - Labs CBC & Chem 7: 01/05/24 07:01 01/05/24 07:01 Labs: Abnormal Lab Results - Last 24 Hours (Table) 01/05/24 Range/Units 07:01 WBC 12.94 H (4.50-10.00) X 10*3/uL Hgb 12.9 L (13.0-17.0) g/dL Lymphocytes # (Manual) 6.60 H (0.90-5.00) X 10*3/uL
[2024-01-05] MEDS: IOPAMIDOL-370 100ML BTL INJ ONE ×2 (13:12→13:54)
[2024-01-05] MEDS: CLOPIDOGREL 75 MG TAB PO ONE (13:19)
[2024-01-05] MEDS ORDERED: TICAGRELOR 90 MG TAB ONE (13:19)
[2024-01-05] MEDS: TICAGRELOR 90 MG TAB PO ONE (13:19)
[2024-01-05] MEDS ORDERED: ZOLPIDEM 5 MG TAB PO PRN (13:41)
[2024-01-05] MEDS ORDERED: RX INFO: IV CONTRAST WAS GIVEN 1 EACH MISC MISCELLANE PRN (13:41)
[2024-01-05] MEDS ORDERED: NITROGLYCERIN SL TABS 0.4 MG TAB SUBLINGUAL PRN (13:41)
[2024-01-05] MEDS ORDERED: MAG HYDROX/AL HYDROX/SIMETH 30 ML CUP PO PRN (13:41)
[2024-01-05] MEDS ORDERED: ATROPINE SULFATE 0.1 MG/ML 10ML SYRINGE IV PRN (13:41)
[2024-01-05] MEDS: SODIUM CHLORIDE 0.9% 1,000 ML IV ONE (13:54)
[2024-01-05 14:55] VITALS: BMI 33.9
[2024-01-05] MEDS: SODIUM CHLORIDE 0.9% 1,000 ML in EMPTY BAG 1 BAG IV SCH (15:16)
[2024-01-05 16:37] LABS: African American GFR (CKD) >90 (>60 ml/min/1.73 sqM); Anion Gap 10 mmol/L; Blood Urea Nitrogen 14 mg/dL (9-20); Calcium 8.9 mg/dL (8.4-10.2); Carbon Dioxide 25 mmol/L (22-30); Chloride 100 mmol/L (98-107); Glucose 134 mg/dL (74-99); Non-African American GFR(CKD) 84 (>60 ml/min/1.73 sqM); Potassium 4.3 mmol/L (3.5-5.1); Sodium 135 mmol/L (137-145)
[2024-01-05] MEDS: ACETAMINOPHEN TAB 325 MG TAB PO PRN (16:42)
--- NOTE | 2024-01-05 18:48 | P.PCN ---
Date of Procedure: 01/05/24 Operative Findings: PERCUTANEOUS CORONARY INTERVENTION Performing physician Kurt Hyde M.D. Procedure Performed: 1. Successful stenting of the mid RCA using 5.0 x 33 mm Xience drug-eluting stent with an excellent angiographic results. 2. Adjunctive use of physiologic assessment and intravascular imaging and lithotripsy balloon and temporary pacemaker 3. Ultrasound-guided access of the right radial art Indication: Chest discomfort concerning for unstable angina. He underwent a heart catheterization and he was found to have severe disease involving the PDA branch of the RCA and intermediate disease involving the mid RCA which is a large- caliber vessel and dominant vessel and occluded LAD as well as severe disease involving a large diagonal branch. Given the above anatomy the patient was referred to be seen by a cardiothoracic surgeon. He was seen by the surgeon and deemed to be high risk for the surgery. For that reason he was brought today to undergo an intervention on the BDA and potentially the RCA Approach: Right radial artery Complications: None Level of Sedation: Moderate with a sedation length of 68 minutes Procedure Discussion: After obtaining informed consent the patient was brought to the cardiac Media Promoter. The right radial artery was cannulated using micropuncture technique under ultrasound guidance and the micropuncture wire passed easily and subsequently I placed a 6 Grenadian sheath at the right radial artery. After that the patient was given 2 mg of verapamil intra-arterial and 5000 units of heparin intravenous with continuous ACT monitoring. Subsequently attempting to engaging the right coronary artery using an AL 0.75 guiding catheter was successful because the catheter kinked and I had difficulties pulling it out over the wire. Finally I was able to unkinked the guide and bullet out. Attempting engaging the RCA again using an AL-1 with adjunctive use of 035 wire was unsuccessful. At that point I decided to engage the right coronary artery using JR4 guiding catheter. The RCA was engaged using JR4 guiding catheter. I wired the RCA using a whisper wire and the wire was advanced all the way to the PDA branch of the right coronary artery which has critical disease and was heavily calcified. From the get go and because I knew that I need support I decided to go ahead and wired the RCA/PDA with a rosa wire and that was a run-through wire. Attempting advancing the rosa wire was successful to the right coronary artery but was unsuccessful to the PDA branch because the lesion was extremely tight and as [id number] just wiring the PDA branch was enough to shut down the flow in the PDA branch. At that point I decided to try again using another whisper wire and that was unsuccessful. At that point attempting advancing 1 mm x 12 mm balloon was unsuccessful. I attempting again wiring the PDA branch using a whisper wire and this time I was successful by wearing it as a rosa wire. Attempting advancing the 1 mm x 12 mm balloon again was unsuccessful on both wires. At that point I decided to pull the rosa wire out and try to use GuideLiner. Unfortunately the guide liner was going only to the mid right coronary artery and stuck by the very calcified lesion in the mid right coronary artery and I could not advance the guide liner any further. At that point I attempted advancing the 1 mm x 12 mm balloon but again that was unsuccessful. Before I decided to start thinking about atherectomy I decided to change my gu heidy into a better support guide. I was able to exchange the JR4 guiding catheter into an AL 0.75 guiding catheter over the 014 wire and 035 wire which was placed in the aortic root. At that point I decided again to advance a 1 mm x 12 mm balloon but that was unsuccessful. It was unsuccessful over rosa wire as well and it was unsuccessful using guide liner as well. At that point I decided to go ahead and try to do atherectomy of the PDA branch of the right coronary artery. Attempting advancing microcatheter to exchange my whisper wire into the Viper flex wire was unsuccessful and the catheter was not able to cross the lesion in the PDA branch of the right coronary artery in spite of multiple twisting on the catheter and advancing at the same time. At that point I decided to advance the catheter as far as I can and subsequently I pulled the whisper wire out and I advanced the Viper flex wire all the way to the distal PDA branch of the right coronary artery which was extremely tortuous and calcified. At that point attempting advancing the atherectomy catheter through the mid right coronary artery was again unsuccessful in spite of using a glide assist and subsequently the wire came out. Please note that before I started the atherectomy I placed a transvenous temporary pacer in the right ventricle where the right common femoral vein was cannulated and then I placed a 6 Grenadian sheath and subsequently the pacer wire was advanced under fluoroscopy guidance to the right ventricular apex where I did put the pacer on a setting of 60 bpm and 5 of AMP. At that point I decided to check if the lesion in the mid right coronary artery was not flow-limiting or normal. So I did Doppler wire measurement using the Doppler wire. After zeroing the Doppler wire and equalizing between the Doppler wire and guiding catheter which was an AL-0.75 guiding catheter which was disengaged from the ostial right coronary artery I did reengage her again and I did wire to the right coronary artery where the wire was advanced distal to the lesion in the mid right coronary artery and IFR came in to be flow-limiting at 0.74. At that point I decided to treat that lesion. Intravascular ultrasound was performed and showed a diameter around 4.5 to 5 mm with extremely calcified vessel. At that point I did the predilatation using the shockwave balloon which was 4 mm balloon and multiple balloon angioplasty performed. Subsequently I did deploy 5 mm x 33 mm stent where the stent was positioned under fluoroscopy guidance and deployed under fluoroscopy guidance. The stent was postdilated using 5 mm noncompliant balloon. There was residual intermediate lesion involving the ostial right coronary artery but the lesion was probably not flow-limiting because the guide was going through the lesion with no dampening in the waveform and no ventricularization. I decided to treat the lesion medically. There was no dissection was noted. The patient tolerated the procedure very well. Final angiogram was performed and showed AUBREY-3 flow in the right coronary artery and flow in the PDA branch of the right coronary artery. The temporary pacer was pulled out. The radial sheath was pu lled out and TR band was applied and the patient was chest pain-free by the end of the procedure. He was loaded with antiplatelet as well. Postprocedure Management: 1. Dual antiplatelet therapy for at least 6-month 2. Aggressive cholesterol control 3. Risk factors modification
[2024-01-05] MEDS: TICAGRELOR 90 MG TAB PO SCH (21:41)
[2024-01-05] MEDS: METOPROLOL TARTRATE 25 MG TAB PO SCH (21:41)
--- NOTE | 2024-01-06 06:10 | P.PN ---
Subjective Progress Note Date: 01/05/24 Patient is a 83-year-old male with a past medical history of COPD not on home O2, atrial fibrillation on anticoagulation with Eliquis, BPH, hypertension and recent abnormal stress test presents to ER with complaints of chest pain/pressure. Patient was sent to ER from his primary care physician's office. Chest pressure worsens with shortness of breath which has been ongoing for the past couple of weeks. Patient was seen by cardiology in the office recently and had stress test. Stress test was noted to be abnormal and prescription was sent for Imdur.. Patient otherwise denies any nausea or vomiting. Patient did have shortness of breath and was using inhalers at home. Cough without any sputum production. Denies any recent illnesses. Chest x-ray showed mild cardiomegaly and hypoventilatory changes. No definite acute process. EKG showed atrial fibrillation with aberrant conduction or ventricular premature complexes. Laboratory data showed WBC 12.3 hemoglobin 13.9 and platelets 228 Sodium 135 potassium 4.6 chloride 103 with show bicarb is 25 sodium 135 potassium 4.6, BUN 15 and creatinine 0.75 and blood sugar 108 proBNP 1550 Troponin x 3 negative. Liver enzymes are not elevated. Patient was given a dose of aspirin statin and Lasix 40 mg IV x 1 in the ER. 01/04/2024 Patient is currently resting in the bed. Awake alert and oriented x 3. No complaints of chest pain. Shortness of breath did improve. No nausea vomiting or abdominal pain or diarrhea. Currently on 2 L oxygen via nasal cannula. Patient has been afebrile. No cough or sputum production. Patient is s/p cardiac catheterization today showed three-vessel coronary artery disease with chronically occluded LAD, severe stenosis involving PDA and the diagonal branch and OM branch. CT surgery was consulted. Laboratory data showed WBC 14.1 Hemoglobin 12.8 and platelets 241, sodium 133 potassium 4.1 chloride 97 bicarb is 27.1 BUN 13.6 and creatinine 0.8 and blood sugar 111 01/05/2024 Patient is seen and evaluated in follow-up this morning. Patient being followed by cardiology and CT surgery was consulted and review of possible intervention including CABG for triple-vessel disease noted on catheterization. Given patient's significant comorbidities and age, recommend PCI stenting and medical management. Cardiology following with possible plans of stenting later today. Patient has been encouraged to increase activity as tolerated and walking frequently in the halls and patient reports continued periods of shortness of breath with exertion. Patient currently denies chest pain or palpitations. Patient is afebrile. Patient currently remains n.p.o. in the event he will undergo stenting today. Review of systems: Constitutional: No reports of fatigue, fever, or chills Cardiovascular: No reports of chest pain or palpitations Respiratory: reports of shortness of breath with exertion GI: No reports of nausea, vomiting, or diarrhea, reports to feeling hungry : No reports of dysuria or retention Neurovascular: No reports of weakness or numbness All medications have been reviewed PHYSICAL EXAMINATION: Patient is sitting up in the chair, no acute distress, awake alert and oriented.. Obese HEENT: Normocephalic. Neck is supple. Pupils reactive. Nostrils clear. Oral cavity is moist. Neck reveals no JVD, carotid bruits, or thyromegaly. CHEST EXAMINATION: Trachea is central. Symmetrical expansion. Bilateral prolonged expiration. No wheezing or rhonchi.. CARDIAC: Normal S1, S2 with no gallops. No murmurs ABDOMEN: Soft. Obese bowel sounds normal. No organomegaly. No abdominal bruits. Extremities: reveal no edema. No clubbing or cyanosis Neurologically awake, alert, oriented x3 with well-coordinated movements. No focal deficits noted Skin: No rash or skin lesions. Psychiatric: Cooperative. Non-suicidal Musculoskeletal: No joint swelling or deformity. Normal range of motion. Assessment: Chest pain with recent abnormal outpatient stress test. Status post cardiac catheterization showed triple-vessel disease. Permanent atrial fibrillation with controlled ventricular rate. On anticoagulation with Eliquis. COPD not on home oxygen Mild leukocytosis 12.3 on admission Hypertension BPH Daily alcohol use, no signs of withdrawal at this time. Family reports one glass of wine daily Mild cognitive impairment Obesity with BMI 33.9 DVT prophylaxis patient is already on full anticoagulation.. Plan: Patient will be continued on telemetry. Troponin x 3 negative. Eliquis is on hold and to be resumed per cardiology tomorrow 01/05. Patient was evaluated by CT surgery and given his age and significant comorbidities no plans for CABG recommending PCI and medical management Patient is n.p.o. and will undergo PCI stenting later today with Dr. Hyde, will await report and discuss further with cardiology regarding discharge planning Patient will be continued on DuoNeb as well as Symbicort and oxygen supplementation as needed. Possible discharge in the next 24 to 48 hours once cleared by cardiology The impression and plan of care has been dictated by Rosio Xiong, Nurse Practitioner as directed. Dr. Kyle MD I have performed a history and examination and MDM of this patient, discussed the same with the dictator, and agree with the dictator's assessment and plan as written ,documented as a scribe. Based on total visit time, I have performed more than 50% of the visit. Objective - Vital Signs Vital signs: Vital Signs Temp 97.6 F 01/05/24 07:30 Pulse 76 01/05/24 08:25 Resp 18 01/05/24 07:30 BP 144/90 01/05/24 07:30 Pulse Ox 97 01/05/24 07:30 FiO2 Intake & Output 01/04/24 01/05/24 01/05/24 18:59 06:59 18:59 Intake Total 836 1172 Balance 836 1172 Weight 95.254 kg Intake: IV 600 700 Oral 236 472 Other: Voiding Method Toilet Toilet Toilet Urinal Urinal Urinal # Voids 1 1 2 - Labs CBC & Chem 7: 01/05/24 07:01 01/05/24 16:02 Labs: Abnormal Lab Results - Last 24 Hours (Table) 01/05/24 Range/Units 07:01 WBC 12.94 H (4.50-10.00) X 10*3/uL Hgb 12.9 L (13.0-17.0) g/dL Lymphocytes # (Manual) 6.60 H (0.90-5.00) X 10*3/uL
[2024-01-06] MEDS ORDERED: HEPARIN SODIUM,PORCINE 10,000 UNIT in SODIUM CHLORIDE 0.9% 1,000 ML IRRIGATION PRN (07:00)
[2024-01-06] MEDS ORDERED: HEPARIN SODIUM,PORCINE (1 ML) 2,500 UNIT in SODIUM CHLORIDE 0.9% 250 ML IRRIGATION PRN (07:00)
[2024-01-06] MEDS: ASPIRIN 81 MG PO SCH (09:12)
[2024-01-06] MEDS: APIXABAN 5 MG TAB PO SCH (09:14)
[2024-01-06 09:35] LABS: HCT 38.2 % (39.6-50.0); HGB 12.4 g/dL (13.0-17.0); MCH 29.6 pg (27.0-32.0); MCHC 32.5 g/dL (32.0-37.0); MCV 91.2 FL (80.0-97.0); Mean Platelet Volume 10.4 FL (9.5-12.2); NRBC Per 100 WBC 0 X 10*3/uL (0.00-0.01); Platelet Count 230 X 10*3/uL (140-440); RBC 4.19 X 10*6/uL (4.40-5.60); WBC 13.46 X 10*3/uL (4.50-10.00)
[2024-01-06 10:06] LABS: BUN/Creat Ratio 20.12 Ratio (12.00-20.00); Blood Urea Nitrogen 16.1 mg/dL (9.0-27.0); Calcium 8.8 mg/dL (8.7-10.3); Carbon Dioxide 25.1 mmol/L (21.6-31.8); Chloride 100 mmol/L (96-109); Glucose 112 mg/dL (70-110); Potassium 4.3 mmol/L (3.5-5.5); Sodium 135 mmol/L (135-145)
[2024-01-06 11:24] LABS: Basophils # (M) 0.27 X 10*3/uL (0.00-0.10); Eosinophils # (M) 0.67 X 10*3/uL (0.04-0.35); Lymphocytes # (M) 3.36 X 10*3/uL (0.90-5.00); Monocytes # (M) 0.54 X 10*3/uL (0.20-1.00); Neutrophils # (M) 8.61 X 10*3/uL (1.80-7.70); Neutrophils % (M) 64 %
--- NOTE | 2024-01-06 13:17 | P.PN ---
Subjective Progress Note Date: 01/06/24 Pleasant 83-year-old gentleman with a past medical history significant for atrial fibrillation, hypertension and BPH. He follows in the office with Dr. Thompson. Presented to the hospital with chief complaint of chest pressure. He recently underwent a Lexiscan stress test in the office on 12/27/2023 revealing ischemia in the LAD distribution. He subsequently underwent cardiac catheterization with Dr. Thompson on 01/04/2024 revealing severe triple-vessel coronary artery disease. He was evaluated by Dr. Gentile and due to his age and comorbidities patient was found to not be a candidate for CABG. He subsequently underwent stenting of the mid RCA by Dr. Hyde yesterday. Upon examination this morning he is sitting in a chair at the bedside. He is overall feeling about the same. He continues to complain of shortness of breath but has had no further chest pressure or heaviness. Is currently on triple therapy with Eliquis, aspirin and Brilinta. His vital signs are stable he has been afebrile. Objective - Vital Signs Vital signs: Vital Signs Temp 97.4 F L 01/06/24 07:30 Pulse 80 01/06/24 08:22 Resp 17 01/06/24 07:30 BP 148/82 01/06/24 07:30 Pulse Ox 98 01/06/24 07:30 FiO2 Intake & Output 01/05/24 01/06/24 01/06/24 18:59 06:59 18:59 Intake Total 1172 118 Output Total 500 Balance 672 118 Weight 95.254 kg Intake: IV 700 Oral 472 118 Output: Urine 500 Other: Voiding Method Toilet Toilet Urinal Urinal # Voids 2 2 - Exam VITAL SIGNS: Reviewed. GENERAL: Well-developed in no acute distress. HEENT: Head is normocephalic. Pupils are equal, round. Sclerae anicteric. Mucous membranes of the mouth are moist. Neck supple. No JVD or thyromegaly LUNGS: Respirations even and unlabored. Lungs essentially clear to auscultation bilaterally. HEART: Irregular rate and rhythm. S1 and S2 heard. ABDOMEN: Soft. Nondistended. Nontender. EXTREMITIES: Normal range of motion. No clubbing or cyanosis. Peripheral pulses intact. No lower extremity edema. Right radial site with TR band still in place no evidence of hematoma with mild ecchymosis. NEUROLOGIC: Awake and alert. Oriented x 3. - Labs CBC & Chem 7: 01/06/24 06:05 01/06/24 06:01 Labs: Abnormal Lab Results - Last 24 Hours (Table) 01/05/24 01/05/24 Range/Units 07:01 16:02 WBC 12.94 H (4.50-10.00) X 10*3/uL Hgb 12.9 L (13.0-17.0) g/dL Lymphocytes # (Manual) 6.60 H (0.90-5.00) X 10*3/uL Sodium 135 L (137-145) mmol/L Glucose 134 H (74-99) mg/dL Assessment and Plan Assessment: Chest pain Recent abnormal stress test revealing ischemia in the LAD distribution S/P cardiac catheterization revealing three-vessel coronary artery disease including chronically occluded LAD, severe stenosis involving the PDA and the diagonal branch and OM branch Status post PCI of the mid RCA Permanent atrial fibrillation with controlled ventricular rate Hypertension COPD BPH Plan: From cardiology's perspective medications were reviewed. We will continue triple therapy for 1 week after which time he will remain on Brilinta and Eliquis. We will give the patient 1 dose of IV Lasix and increased dose of oral Lasix. Will obtain a 2D echo with Doppler study to assess cardiac structure and function. Will continue to follow the patient provide further recommendations accordingly. PIPE STRESS ENGINEER note has been reviewed, I agree with a documented findings and plan of care. Patient was seen and examined.
[2024-01-06] MEDS: FUROSEMIDE 10 MG/ML 4 ML VIAL IV STA (15:40)
[2024-01-07 02:51] VITALS: TEMP 97.7
--- NOTE | 2024-01-07 07:13 | P.PN ---
Subjective Progress Note Date: 01/06/24 Patient is a 83-year-old male with a past medical history of COPD not on home O2, atrial fibrillation on anticoagulation with Eliquis, BPH, hypertension and recent abnormal stress test presents to ER with complaints of chest pain/pressure. Patient was sent to ER from his primary care physician's office. Chest pressure worsens with shortness of breath which has been ongoing for the past couple of weeks. Patient was seen by cardiology in the office recently and had stress test. Stress test was noted to be abnormal and prescription was sent for Imdur.. Patient otherwise denies any nausea or vomiting. Patient did have shortness of breath and was using inhalers at home. Cough without any sputum p roduction. Denies any recent illnesses. Chest x-ray showed mild cardiomegaly and hypoventilatory changes. No definite acute process. EKG showed atrial fibrillation with aberrant conduction or ventricular premature complexes. Laboratory data showed WBC 12.3 hemoglobin 13.9 and platelets 228 Sodium 135 potassium 4.6 chloride 103 with show bicarb is 25 sodium 135 potassium 4.6, BUN 15 and creatinine 0.75 and blood sugar 108 proBNP 1550 Troponin x 3 negative. Liver enzymes are not elevated. Patient was given a dose of aspirin statin and Lasix 40 mg IV x 1 in the ER. 01/04/2024 Patient is currently resting in the bed. Awake alert and oriented x 3. No complaints of chest pain. Shortness of breath did improve. No nausea vomiting or abdominal pain or diarrhea. Currently on 2 L oxygen via nasal cannula. Patient has been afebrile. No cough or sputum production. Patient is s/p cardiac catheterization today showed three-vessel coronary artery disease with chronically occluded LAD, severe stenosis involving PDA and the diagonal branch and OM branch. CT surgery was consulted. Laboratory data showed WBC 14.1 Hemoglobin 12.8 and platelets 241, sodium 133 potassium 4.1 chloride 97 bicarb is 27.1 BUN 13.6 and creatinine 0.8 and blood sugar 111 01/05/2024 Patient is seen and evaluated in follow-up this morning. Patient being followed by cardiology and CT surgery was consulted and review of possible intervention including CABG for triple-vessel disease noted on catheterization. Given patient's significant comorbidities and age, recommend PCI stenting and medical management. Cardiology following with possible plans of stenting later today. Patient has been encouraged to increase activity as tolerated and walking frequently in the halls and patient reports continued periods of shortness of breath with exertion. Patient currently denies chest pain or palpitations. Patient is afebrile. Patient currently remains n.p.o. in the event he will undergo stenting today. 01/06/2024 Patient is evaluated in follow up today. He is postoperative cardiac catheterization and underwent stenting to the RCA. He remains on eliquis and brilinta with plans for triple therapy for 1 week post discharge than discontinuing the aspirin. He remains short of breath. Cardiology planning on r epeating an echocardiogram and patient will be given a dose of IV lasix. WBC is 13.46, His renal function remains stable. Review of systems: Constitutional: No reports of fatigue, fever, or chills Cardiovascular: No reports of chest pain or palpitations Respiratory: reports of shortness of breath with exertion GI: No reports of nausea, vomiting, or diarrhea, reports to feeling hungry : No reports of dysuria or retention Neurovascular: No reports of weakness or numbness All medications have been reviewed PHYSICAL EXAMINATION: Patient is sitting up in the chair, no acute distress, awake alert and oriented.. Obese HEENT: Normocephalic. Neck is supple. Pupils reactive. Nostrils clear. Oral cavity is moist. Neck reveals no JVD, carotid bruits, or thyromegaly. CHEST EXAMINATION: Trachea is central. Symmetrical expansion. Bilateral prolonged expiration. No wheezing or rhonchi.. CARDIAC: Normal S1, S2 with no gallops. No murmurs ABDOMEN: Soft. Obese bowel sounds normal. No organomegaly. No abdominal bruits. Extremities: reveal no edema. No clubbing or cyanosis Neurologically awake, alert, oriented x3 with well-coordinated movements. No focal deficits noted Skin: No rash or skin lesions. Psychiatric: Cooperative. Non-suicidal Musculoskeletal: No joint swelling or deformity. Normal range of motion. Assessment: Chest pain with recent abnormal outpatient stress test. Status post cardiac catheterization showed triple-vessel disease. Permanent atrial fibrillation with controlled ventricular rate. On anticoagulation with Eliquis. COPD not on home oxygen Mild leukocytosis 12.3 on admission Hypertension BPH Daily alcohol use, no signs of withdrawal at this time. Family reports one glass of wine daily Mild cognitive impairment Obesity with BMI 33.9 DVT prophylaxis patient is already on full anticoagulation.. Plan: Patient will be continued on telemetry. Troponin x 3 negative. Patient underwent successful stenting to the RCA. He remains short of breath wit h plans to repeat echocardiogram. He is given IV lasix x1 and will be resumed on his oral lasix in the AM. Patient was evaluated by CT surgery and given his age and significant comorbidities no plans for CABG recommending PCI and medical management Patient will be continued on DuoNeb as well as Symbicort and oxygen supplementation as needed. Possible discharge in the next 24 to 48 hours once cleared by cardiology The impression and plan of care has been dictated by Jennifer Brandt, Nurse Practitioner as directed. Dr. Kyle MD I have performed a history and physical examination and medical decision making of this patient, discussed the same with the dictator, and agree with the dictators assessment and plan as written, documented as a scribe. Based on total visit time, I have performed more than 50% of this visit. Objective - Vital Signs Vital signs: Vital Signs Temp 97.7 F 01/07/24 01:34 Pulse 75 01/07/24 01:34 Resp 16 01/07/24 01:34 BP 105/55 01/07/24 01:34 Pulse Ox 92 L 01/07/24 01:34 FiO2 Intake & Output 01/06/24 01/07/24 01/07/24 18:59 06:59 18:59 Intake Total 118 Balance 118 Intake: Oral 118 Other: # Voids 3 1 # Bowel Movements 2 - Labs CBC & Chem 7: 01/06/24 06:05 01/06/24 06:01 Labs: Abnormal Lab Results - Last 24 Hours (Table) 01/06/24 01/06/24 Range/Units 06:01 06:05 WBC 13.46 H (4.50-10.00) X 10*3/uL RBC 4.19 L (4.40-5.60) X 10*6/uL Hgb 12.4 L (13.0-17.0) g/dL Hct 38.2 L (39.6-50.0) % Eosinophils # (Manual) 0.67 H (0.04-0.35) X 10*3/uL Basophils # (Manual) 0.27 H (0.00-0.10) X 10*3/uL BUN/Creatinine Ratio 20.12 H (12.00-20.00) Ratio Glucose 112 H (70-110) mg/dL Assessment and Plan Time with Patient: Less than 30
--- NOTE | 2024-01-07 07:44 | CA ---
Transthoracic Echo Report Name: Bogdan Powell Age: 83 Gender: M : 1940 Exam Date: 01/06/2024 14:57 Exam Location: [facility] Ht (in): 66 Wt (lb): 210 Ordering Physician: Gisselle Rodarte Attending/Referring Phys: [id number], [employer] Software Engineer Rafaela Lindo RDCS Procedure CPT: Indications: chest pain, triple vessel CAD Cardiac Hx: Technical Quality: Poor Contrast 1: Definity Total Dose (mL): 2 Contrast 2: Total Dose (mL): MEASUREMENTS (Male / Female) Normal Values 2D ECHO LV Diastolic Diameter PLAX 5.0 cm 4.2 - 5.9 / 3.9 - 5.3 cm LV Systolic Diameter PLAX 3.9 cm IVS Diastolic Thickness 1.7 cm 0.6 - 1.0 / 0.6 - 0.9 cm LVPW Diastolic Thickness 1.6 cm 0.6 - 1.0 / 0.6 - 0.9 cm LV Relative Wall Thickness 0.7 RV Internal Dim ED PLAX 3.1 cm LA Volume 84.5 cm??? 18 - 58 / 22 - 52 cm??? LA Volume Index 39.5 cm???/m??? 16 - 28 cm???/m??? M-MODE Aortic Root Diameter MM 3.6 cm LA Systolic Diameter MM 3.9 cm LA Ao Ratio MM 1.1 AV Cusp Separation MM 2.4 cm DOPPLER AV Peak Velocity 135.0 cm/s AV Peak Gradient 7.3 mmHg AV Mean Velocity 109.4 cm/s AV Mean Gradient 5.1 mmHg AV Velocity Time Integral 24.6 cm LVOT Peak Velocity 109.7 cm/s LVOT Peak Gradient 4.8 mmHg LVOT Velocity Time Integral 19.7 cm MV Area PHT 3.2 cm??? Mitral E Point Velocity 93.8 cm/s Mitral A Point Velocity 1.1 cm/s Mitral E to A Ratio 81.7 MV Deceleration Time 240.6 ms MV E' Velocity 7.5 cm/s Mitral E to MV E' Ratio 12.5 TR Peak Velocity 227.5 cm/s TR Peak Gradient 20.7 mmHg Right Ventricular Systolic Press 24.6 mmHg FINDINGS Left Ventricle Moderately increased left ventricular wall thickness. Left ventricular cavity size normal. Reduced global left ventricular systolic function. Left ventricular ejection fraction is estimated at 45-50 %. Grade 1 diastolic dysfunction. Mild anterior wall hypokinesis Right Ventricle Normal right ventricular size and function. Right ventricular systolic pressure within normal limits. Right Atrium Mild right atrial dilatation. Left Atrium Moderately increased left atrial volume. Mildly increased left atrial area. Mitral Valve Structurally normal mitral valve. Mild mitral regurgitation.mitral annular calcification. Aortic Valve Trileaflet aortic valve. Aortic valve sclerosis. No aortic valve stenosis or regurgitation. Tricuspid Valve Structurally normal tricuspid valve. Mild to moderate tricuspid regurgitation. Pulmonic Valve Pulmonic valve not well visualized. Pericardium No pericardial effusion.echo free space anterior to the right ventricle likely represents a fat pad. Aorta Normal size aortic root and proximal ascending aorta. CONCLUSIONS 1. Mildly impaired left ventricle systolic function with mild anterior wall hypokinesis 2. Mild mitral with mild to moderate tricuspid regurgitation Technically difficult study. Definity ECHO contrast used for improved visualization of the endocardial borders (inadequate visualization of two or more contiguous segments). Previewed by: Dr. Laly Perdomo MD (Electronically Signed) Final Date: 07 January 2024 07:44
[2024-01-07 08:24] VITALS: BP 136/71; RESP 15
[2024-01-07] MEDS: FUROSEMIDE 20 MG TAB PO SCH (08:55)
[2024-01-07 11:19] LABS: African American GFR (CKD) >90 (>60 ml/min/1.73 sqM); Anion Gap 10 mmol/L; Blood Urea Nitrogen 16 mg/dL (9-20); Calcium 8.7 mg/dL (8.4-10.2); Carbon Dioxide 25 mmol/L (22-30); Chloride 95 mmol/L (98-107); Glucose 91 mg/dL (74-99); Non-African American GFR(CKD) 81 (>60 ml/min/1.73 sqM); Potassium 4.1 mmol/L (3.5-5.1); Sodium 130 mmol/L (137-145)
[2024-01-07 11:43] VITALS: PULSE 80
--- NOTE | 2024-01-07 12:56 | P.PN ---
Subjective Progress Note Date: 01/07/24 Pleasant 83-year-old gentleman with a past medical history significant for atrial fibrillation, hypertension and BPH. He follows in the office with Dr. Thompson. Presented to the hospital with chief complaint of chest pressure. He recently underwent a Lexiscan stress test in the office on 12/27/2023 revealing ischemia in the LAD distribution. He subsequently underwent cardiac catheterization with Dr. Thompson on 01/04/2024 revealing severe triple-vessel coronary artery disease. He was evaluated by Dr. Gentile and due to his age and comorbidities patient was found to not be a candidate for CABG. He subsequently underwent stenting of the mid RCA by Dr. Hyde yesterday. Upon examination this morning he is sitting in a chair at the bedside. He is overall feeling about the same. He continues to complain of shortness of breath but has had no further chest pressure or heaviness. Is currently on triple therapy with Eliquis, aspirin and Brilinta. His vital signs are stable he has been afebrile. 01/07/2024 Patient seen and examined resting comfortably in the chair. Overall he appears a bit more comfortable in his breathing. He is unsure if he noticed any difference in breathing after receiving IV Lasix yesterday. He did diurese well. He has had no further complaints of chest discomfort he has been up ambulating without difficulty. Echocardiogram with Doppler study showed reduced LV systolic function with an ejection fraction of 45 to 50% with mild anterior wall hypokinesis. Objective - Vital Signs Vital signs: Vital Signs Temp 97.7 F 01/07/24 07:40 Pulse 80 01/07/24 11:42 Resp 15 01/07/24 07:40 BP 136/71 01/07/24 07:40 Pulse Ox 99 01/07/24 07:40 FiO2 Intake & Output 01/06/24 01/07/24 01/07/24 18:59 06:59 18:59 Intake Total 118 590 Balance 118 590 Intake: Oral 118 590 Other: # Voids 3 1 # Bowel Movements 2 - Exam VITAL SIGNS: Reviewed. GENERAL: Well-developed in no acute distress. HEENT: Head is normocephalic. Pupils are equal, round. Sclerae anicteric. Mucous membranes of the mouth are moist. Neck supple. No JVD or thyromegaly LUNGS: Respirations even and unlabored. Lungs essentially clear to auscultation bilaterally. HEART: Irregular rate and rhythm. S1 and S2 heard. ABDOMEN: Soft. Nondistended. Nontender. EXTREMITIES: Normal range of motion. No clubbing or cyanosis. Peripheral pulses intact. No lower extremity edema. Right radial site with TR band still in place no evidence of hematoma with mild ecchymosis. NEUROLOGIC: Awake and alert. Oriented x 3. - Labs CBC & Chem 7: 01/06/24 06:05 01/07/24 10:31 Labs: Abnormal Lab Results - Last 24 Hours (Table) 01/07/24 Range/Units 10:31 Sodium 130 L (137-145) mmol/L Chloride 95 L (98-107) mmol/L Assessment and Plan Assessment: Chest pain Recent abnormal stress test revealing ischemia in the LAD distribution S/P cardiac catheterization revealing three-vessel coronary artery disease including chronically occluded LAD, severe stenosis involving the PDA and the diagonal branch and OM branch Status post PCI of the mid RCA Permanent atrial fibrillation with controlled ventricular rate Hypertension COPD BPH Plan: From cardiology's perspective medications were reviewed. We will continue triple therapy for 1 week after which time he will remain on Brilinta and Eliquis. From our perspective patient may be discharged home. He will remain on Lasix 40 mg p.o. twice daily until follow-up. He will follow-up in the office with Dr. Thompson. Patient will likely need consideration for intervention on the LAD lesion at a later date. PREKINDERGARTEN TEACHER note has been reviewed, I agree with a documented findings and plan of care. Patient was seen and examined.
[2024-01-07] MEDS ORDERED: FUROSEMIDE 40 MG TAB PO SCH (16:00)
--- NOTE | 2024-01-09 22:54 | P.DS ---
Providers Date of admission: 01/05/24 13:45 Attending physician: Carey Diggs Consults: 01/03/24 11:24 Consult Physician Urgent Consulting Provider: Cardiology aMría Consult Reason/Comments: acute chest pain, recent stress test Do you want consulting provider notified?: Yes 01/04/24 08:12 Consult Physician Routine Consulting Provider: Amrik Gentile Consult Reason/Comments: cabg eval Do you want consulting provider notified?: Yes 01/05/24 13:41 Consult Physician Routine Consulting Provider: Jimbo Daniel Consult Reason/Comments: Post Interventional Patient Do you want consulting provider notified?: Already Contacted Primary care physician: Manuel Kim Hospital Course: Final Diagnosis Chest pain with recent abnormal outpatient stress test. Status post cardiac catheterization showed triple-vessel disease. Successful stenting of the LAD Permanent atrial fibrillation with controlled ventricular rate. On anticoagulation with Eliquis. COPD not on home oxygen Mild leukocytosis 12.3 on admission Hypertension BPH Daily alcohol use, no signs of withdrawal at this time. Family reports one glass of wine daily Mild cognitive impairment Obesity with BMI 33.9 Discharge Disposition Patient is stable for discharge home. Continue triple therapy for 1 week with aspirin, eliquis and brilinta. After which time he will remain on Brilinta and Eliquis. Continue on oral lasix twice a day with further recommendations made by cardiology on follow up. Recommend to repeat a BMP in 2 to 3 days. Patient to see PCP Dr. Kim in 2 to 3 days and has a follow up appointment with her car diologist Dr. Perdomo on 01/09. Hospital Course Patient is a 83-year-old male with a past medical history of COPD not on home O2, atrial fibrillation on anticoagulation with Eliquis, BPH, hypertension and recent abnormal stress test presents to ER with complaints of chest pain/pressure. Patient was sent to ER from his primary care physician's office. Chest pressure worsens with shortness of breath which has been ongoing for the past couple of weeks. Patient was seen by cardiology in the office recently and had stress test. Stress test was noted to be abnormal and prescription was sent for Imdur.. Patient otherwise denies any nausea or vomiting. Patient did have shortness of breath and was using inhalers at home. Cough without any sputum production. Denies any recent illnesses. Chest x-ray showed mild cardiomegaly and hypoventilatory changes. No definite acute process. EKG showed atrial fibrillation with aberrant conduction or ventricular premature complexes. Laboratory data showed WBC 12.3 hemoglobin 13.9 and platelets 228 Sodium 135 potassium 4.6 chloride 103 with show bicarb is 25 sodium 135 potassium 4.6, BUN 15 and creatinine 0.75 and blood sugar 108. proBNP 1550. Tro ponin x 3 negative. Liver enzymes are not elevated. Admitted to to the hospital under medicine with cardiology consultation. Patient was given a dose of IV lasix on admission. Patient is s/p cardiac catheterization showed three-vessel coronary artery disease with chronically occluded LAD, severe stenosis involving PDA and the diagonal branch and OM branch. CT surgery was consulted and for possible intervention including CABG for triple-vessel disease noted on catheterization. Given patient's significant comorbidities and age, recommend PCI stenting and medical management. He is postoperative cardiac catheterization and underwent stenting to the RCA. He remains on eliquis and brilinta with plans for triple therapy for 1 week post discharge than discontinuing the aspirin. He remains short of breath. He was given a second dose of IV lasix. Repeat echocardiogram showing mildly impaired left ventricle systolic function with mild anterior wall hypokinesis. Mild mitral with mild to moderate tricuspid regurgitation was a technically difficult study. Renal function remains stable. He was monitored overnight with improvement in his shortness of breath. No reports of chest pain. He will be discharged home with the above mentioned recommendations. Please see medication reconciliation for a list of current medications. Thank you for allowing us to participate in the care of this patient. The impression and plan of care has been dictated by Jennifer Brandt, Nurse Practitioner as directed. Dr. Kyle MD I have performed a history and physical examination and medical decision making of this patient, discussed the same with the dictator, and agree with the dictators assessment and plan as written, documented as a scribe. Based on total visit time, I have performed more than 50% of this visit. Patient Condition at Discharge: Stable Plan - Discharge Summary Discharge Rx Participant: No New Discharge Prescriptions: New Aspirin 81 mg PO DAILY #7 tab Ticagrelor [Brilinta] 90 mg PO BID #60 tab Furosemide [Lasix] 40 mg PO BID@0900,1600 #60 tab Metoprolol Tartrate [Lopressor] 25 mg PO BID #60 tab Continue Tamsulosin [Flomax] 0.4 mg PO BID Finasteride [Proscar] 5 mg PO DAILY Fluticasone/Umeclidin/Vilanter [Trelegy Ellipta 200-62.5-25] 1 puff INHALATION RT-DAILY Isosorbide Mononitrate ER [Imdur] 30 mg PO DAILY Dorzolamide-Timol 2.23%/0.68% [Cosopt] 1 drop BOTH EYES BID Apixaban [Eliquis] 5 mg PO BID Albuterol Inhaler [Ventolin Hfa Inhaler] 2 puff INHALATION RT-QID PRN PRN Reason: Shortness Of Breath Latanoprost [Xalatan 0.005%] 1 drop BOTH EYES HS Valsartan [Diovan] 40 mg PO DAILY Nitroglycerin Sl Tabs [Nitrostat] 0.4 mg SUBLINGUAL Q5M PRN PRN Reason: Chest Pain Discontinued Furosemide [Lasix] 20 mg PO DAILY Discharge Medication List Albuterol Inhaler [Ventolin Hfa Inhaler] 2 puff INHALATION RT-QID PRN 01/20/21 [History] Latanoprost [Xalatan 0.005%] 1 drop BOTH EYES HS 01/20/21 [History] Finasteride [Proscar] 5 mg PO DAILY 01/22/21 [History] Tamsulosin [Flomax] 0.4 mg PO BID 01/22/21 [History] Apixaban [Eliquis] 5 mg PO BID 01/03/24 [History] Dorzolamide-Timol 2.23%/0.68% [Cosopt] 1 drop BOTH EYES BID 01/03/24 [History] Fluticasone/Umeclidin/Vilanter [Trelegy Ellipta 200-62.5-25] 1 puff INHALATION RT-DAILY 01/03/24 [History] Isosorbide Mononitrate ER [Imdur] 30 mg PO DAILY 01/03/24 [History] Nitroglycerin Sl Tabs [Nitrostat] 0.4 mg SUBLINGUAL Q5M PRN 01/03/24 [History] Valsartan [Diovan] 40 mg PO DAILY 01/03/24 [History] Aspirin 81 mg PO DAILY #7 tab 01/07/24 [Rx] Furosemide [Lasix] 40 mg PO BID@0900,1600 #60 tab 01/07/24 [Rx] Metoprolol Tartrate [Lopressor] 25 mg PO BID #60 tab 01/07/24 [Rx] Ticagrelor [Brilinta] 90 mg PO BID #60 tab 01/07/24 [Rx] Follow up Appointment(s)/Referral(s): Manuel Kim MD [Primary Care Provider] - 1-2 days Gera Martínez MD [STAFF PHYSICIAN] - 01/10/24 Ambulatory/Diagnostic Orders: Basic Metabolic Panel [LAB.AMB] Time Frame: 3 Days, Location: None Selected Activity/Diet/Wound Care/Special Instructions: Continue triple therapy for 1 week with aspirin, eliquis and brilinta After which time he will remain on Brilinta and Eliquis. Continue on oral lasix twice a day with further recommendations made by cardiology on follow up Discharge Disposition: HOME SELF-CARE
--- NOTE | 2024-01-11 11:38 | CDI ---
Documentation Clarification Form Date: 01/11/2024 11:04:40 AM From: Ashlee Harvey RN, CCDS Email: [email or web address] Admit Date: 01/05/2024 01:45:00 PM Patient Name: Bogdan Powell Visit Number: [id number] Discharge Date: 01/07/2024 03:00:00 PM ATTENTION: The Clinical Documentation Specialists (CDI) and [facility] Coding Staff appreciate your assistance in clarifying documentation. Please respond to the clarification below the line at the bottom and electronically sign. The CDI & [facility] Coding staff will review the response and follow-up if needed. Please note: Queries are made part of the Legal Health Record. If you have any questions, please contact the author of this message via ITS. Dr. Belia Wright Your patient was receiving IV and po Lasix. Please clarify what condition/diagnosis was being treated. History/Risk Factors: Chest pain with recent abnormal outpatient stress test. Status post cardiac catheterization showed triple vessel disease. Successful stenting of the LAD. Permanent atrial fibrillation with controlled ventricular rate. On anticoagulation with Eliquis. Clinical indicators: ED: "Has had increase in weight as well as lower extremity swelling. He has been taking his Lasix as directed." 01/02 CXR: Mild cardiomegaly and hypoventilatory changes. 01/02 BNP 1550 01/04 CXR: Hypoventilatory changes with increased interstitial density possible vascular crowding versus developing pulmonary vascular congestion. 01/05 Echo: Left ventricular ejection fraction is estimated at 45-50 %. Grade 1 diastolic dysfunction. 01/06 Cardiology: "He is unsure if he noticed any difference in breathing after receiving IV Lasix yesterday. He did diurese well." Discharge summary: "He remains short of breath. He was given a second dose of IV Lasix. Repeat echocardiogram showing mildly impaired left ventricle systolic function with mild anterior wall hypokinesis." Treatment: IV Lasix 40mg x1 on 01/02; Lasix 20mg po daily 01/03-01/05; IV Lasix 40mg x1 on 01/05; Lasix 40mg po x1 on 01/06; Discharged on Lasix 40mg po BID; s/p cardiac cath and PCI What diagnosis are you treating with IV Lasix? [ x ] Acute pulmonary edema [ ] Acute pulmonary edema due to CHF, please specify type and acuity [ ] No additional diagnosis [ ] Other, please specify [ ] Unable to determine MTDD
== END 2024-01-07 15:00 | disposition home or self-care (01) | DRG 323 ==
LOC: EC 09:29 → 6NMEDSUR 11:25 → OBSVTOIN 01-05 13:45
PROVIDERS: ADMIT Hospitalist; ATTEND Hospitalist
PROC: 5A1223Z Performance of Cardiac Pacing, Continuous (ICD-10-PCS; 2024-01-05)
PROC: 027034Z Dilation of Coronary Artery, One Artery with Drug-eluting Intraluminal Device, Percutaneous Approach (ICD-10-PCS; principal; 2024-01-05 10:30)
PROC: 02F03ZZ Fragmentation in Coronary Artery, One Artery, Percutaneous Approach (ICD-10-PCS; 2024-01-05 10:30)
PROC: 4A023N7 Measurement of Cardiac Sampling and Pressure, Left Heart, Percutaneous Approach (ICD-10-PCS; 2024-01-05 10:30)
PROC: B2111ZZ Fluoroscopy of Multiple Coronary Arteries using Low Osmolar Contrast (ICD-10-PCS; 2024-01-05 10:30)
PROC: B240ZZ3 Ultrasonography of Single Coronary Artery, Intravascular (ICD-10-PCS; 2024-01-05 10:30)
DX: I25.110 Atherosclerotic heart disease of native coronary artery with unstable angina pectoris (principal); J81.0 Acute pulmonary edema; I48.21 Permanent atrial fibrillation; I10 Essential (primary) hypertension; J44.9 Chronic obstructive pulmonary disease, unspecified; Z79.01 Long term (current) use of anticoagulants; G31.84 Mild cognitive impairment of uncertain or unknown etiology; I08.3 Combined rheumatic disorders of mitral, aortic and tricuspid valves; E66.9 Obesity, unspecified; Z68.33 Body mass index [BMI] 33.0-33.9, adult; Z79.899 Other long term (current) drug therapy; Z87.891 Personal history of nicotine dependence; N40.0 Benign prostatic hyperplasia without lower urinary tract symptoms
CPT/HCPCS: 36415; 71045; 71046; 76937; 80048; 80053; 81003; 83735; 83880; 84484; 85025; 85610; 85730; 92972; 92978; 93005; 93306; 93458; 93799; 94640; 94760; 96374; 99285

== ENCOUNTER 2024-04-04 11:29 | Emergency (ER) | payer MEDICARE ==
--- NOTE | 2024-04-04 11:58 | ED ---
Skin/Abscess/FB HPI - General Chief complaint: Wound/Laceration Stated complaint: rash on L ankle Time Seen by Provider: 04/04/24 11:36 Source: patient, RN notes reviewed Mode of arrival: wheelchair Limitations: no limitations - History of Present Illness Initial comments: This is an 83-year-old male who presents to the emergency department for a rash to the left lower extremity. Patient states that it started about a month ago and his has been applying Vaseline to it. Over the last couple of days the rash has gotten worse. Patient has problems with neuropathy and is unsure if there is any pain or itching associated with this. Denies any fevers or chills. MD complaint: rash - Related Data Home Medications Medication Instructions Recorded Confirmed Albuterol Inhaler [Ventolin Hfa 2 puff INHALATION RT-QID PRN 01/20/21 04/04/24 Inhaler] Latanoprost [Xalatan 0.005%] 1 drop BOTH EYES HS 01/20/21 04/04/24 Finasteride [Proscar] 5 mg PO DAILY 01/22/21 04/04/24 Tamsulosin [Flomax] 0.4 mg PO BID 01/22/21 04/04/24 Apixaban [Eliquis] 5 mg PO BID 01/03/24 04/04/24 Dorzolamide-Timol 2.23%/0.68% 1 drop BOTH EYES BID 01/03/24 04/04/24 [Cosopt] Isosorbide Mononitrate ER [Imdur] 30 mg PO DAILY 01/03/24 04/04/24 Nitroglycerin Sl Tabs [Nitrostat] 0.4 mg SUBLINGUAL Q5M PRN 01/03/24 04/04/24 Valsartan [Diovan] 40 mg PO BID 01/03/24 04/04/24 Albuterol Nebulized [Ventolin 2.5 mg INHALATION RT-QID 04/04/24 04/04/24 Nebulized] Atorvastatin [Lipitor] 40 mg PO HS 04/04/24 04/04/24 Ferrous Sulfate [Feosol] 325 mg PO DAILY 04/04/24 04/04/24 Ranolazine [Ranolazine ER] 500 mg PO Q12HR 06/13/24 06/13/24 Previous Rx's Medication Instructions Recorded Furosemide [Lasix] 40 mg PO BID@0900,1600 #60 tab 01/07/24 Metoprolol Tartrate [Lopressor] 25 mg PO BID #60 tab 01/07/24 Ticagrelor [Brilinta] 90 mg PO BID #60 tab 01/07/24 Cephalexin [Keflex] 500 mg PO Q6HR 7 Days #28 cap 04/04/24 Clotrimazole [Clotrimazole AF] 1 applic TOPICAL BID #28 gm 04/04/24 Allergies Allergy/AdvReac Type Severity Reaction Status Date / Time No Known Allergies Allergy Verified 04/04/24 12:51 Review of Systems ROS Statement: Those systems with pertinent positive or pertinent negative responses have been documented in the HPI. ROS Other: All systems not noted in ROS Statement are negative. Past Medical History Past Medical History: Atrial Fibrillation, COPD, Hypertension, Prostate Disorder History of Any Multi-Drug Resistant Organisms: None Reported Past Surgical History: Hernia Repair Additional Past Surgical History / Comment(s): abdominal surgery 6 years ago. Past Anesthesia/Blood Transfusion Reactions: No Reported Reaction Past Psychological History: No Psychological Hx Reported Smoking Status: Former smoker Past Alcohol Use History: Daily Past Drug Use History: None Reported General Exam Limitations: no limitations General appearance: alert, in no apparent distress Respiratory exam: Present: normal lung sounds bilaterally. Absent: respiratory distress, wheezes, rales, rhonchi, stridor Cardiovascular Exam: Present: regular rate, normal rhythm, normal heart sounds. Absent: systolic murmur, diastolic murmur, rubs, gallop, clicks Neurological exam: Present: alert, oriented X3, CN II-XII intact Psychiatric exam: Present: normal affect, normal mood Skin exam: Present: other (Erythematous rash to the distal aspect of the left lower extremity with darker borders and a [employer] with overlying scaling.) Course Vital Signs 04/04/24 04/04/24 04/04/24 11:31 13:21 13:28 Temperature 97.8 F Pulse Rate 56 L 57 L 61 Respiratory 18 Rate Blood Pressure 114/62 O2 Sat by Pulse 97 Oximetry 04/04/24 14:13 Temperature 97.9 F Pulse Rate 62 Respiratory 17 Rate Blood Pressure 114/72 O2 Sat by Pulse 95 Oximetry Medical Decision Making - Medical Decision Making This is an 83 year old male who presents to the emergency department for a rash to the left leg. Was pt. sent in by a medical professional or institution? @ -No Did you speak to anyone other than the patient for history? @ -His provided the majority of the history. Did you review nursing and triage notes? @ -Yes, and I agree, it is accurate with regards to the patient's symptoms. Were old charts reviewed? @ -No Differential Diagnosis? @ -Differential Rash: Roseola, measles, Lyme disease, erythema multiforme, cellulitis, toxic shock syndrome, Terell Ziggy syndrome, Kawasaki disease, kirk mountain spotted fever, contact dermatitis, allergic dermatitis, measles, mumps, rubella, varicella, meningococcal disease, drug reaction, coxsackievirus, This is not meant to be an all-inclusive list. EKG interpreted by me (3pts min.)? @ -Not obtained X-rays interpreted by me (1pt min.)? @ -X-ray of the left tib/fib obtained. My interpretation identifies no acute fractures. CT interpreted by me (1pt min.)? @ -Not obtained U/S interpreted by me (1pt. min.)? @ -Not obtained What testing was considered but not performed? (CT, X-rays, U/S, labs)? Why? @ -None What meds were considered but not given? Why? @ -None Did you discuss the management of the patient with other professionals? @ -No Did you reconcile home meds? @ -No Was smoking cessation discussed for >3mins.? @ -No Was critical care preformed (if so, how long)? @ -No Were there social determinants of health that impacted care today? How? (Homelessness, low income, unemployed, alcoholism, drug addiction, transportation, low edu. Level, literacy, decrease access to med. care, fdc, r ehab)? @ -No Was there de-escalation of care discussed even if they declined? (Discuss DNR or withdrawal of care, Hospice)? @ -No What co-morbidities impacted this encounter? (DM, HTN, Smoking, COPD, CAD, Cancer, CVA, Hep., AIDS, mental health diagnosis, sleep apnea, morbid obesity)? @ -None Was patient admitted / discharged? @ -Discharged. Physical examination suggestive of cellulitis vs fungal infection such as ringworm. Lab work demonstrates mild leukocytosis and was otherwise fairly unremarkable. X-ray of the left tib-fib demonstrates soft tissue swelling without other acute process. Discussed with the patient that given the presentation, will treat patient with antifungal cream as well as Kef nevin to cover for both cellulitis as well as a fungal infection. Advised follow- up with his primary care provider for reevaluation. Undiagnosed new problem with uncertain prognosis? @ -None Drug Therapy requiring intensive monitoring for toxicity (Heparin, Nitro, Insulin, Cardizem)? @ -None Were any procedures done? @ -None Diagnosis/symptom? @ -Cellulitis vs ringworm Acute, or Chronic, or Acute on Chronic? @ -Acute Uncomplicated (without systemic symptoms) or Complicated (systemic symptoms)? @ -Uncomplicated Side effects of treatment? @ -None Exacerbation, Progression, or Severe Exacerbation] @ -Not applicable Poses a threat to life or bodily function? @ -No Return precautions reviewed in depth, the patient is instructed to return to the emergency department with any new, worsening, or concerning symptoms. Patient verbalized understanding. This case was discussed in detail with the attending ED physician, Dr. Gifford. Presentation, findings, and treatment plan discussed in detail as well. - Lab Data Result diagrams: 04/04/24 11:56 04/04/24 11:56 Lab Results 04/04/24 04/04/24 04/04/24 Range/Units 11:56 11:56 11:56 WBC 11.6 H (3.8-10.6) k/uL RBC 3.99 L (4.30-5.90) m/uL Hgb 12.3 L (13.0-17.5) gm/dL Hct 37.0 L (39.0-53.0) % MCV 92.8 (80.0-100.0) fL MCH 30.9 (25.0-35.0) pg MCHC 33.3 (31.0-37.0) g/dL RDW 15.4 (11.5-15.5) % Plt Count 203 (150-450) k/uL MPV 7.7 Neutrophils % Not Reportable Neutrophils % (Manual) 41 % Lymphocytes % Not Reportable Lymphocytes % (Manual) 54 % Monocytes % Not Reportable Monocytes % (Manual) 4 % Eosinophils % Not Reportable Eosinophils % (Manual) 1 % Basophils % Not Reportable Basophils % (Manual) 1 % Neutrophils # Not Reportable Neutrophils # (Manual) 4.76 (1.3-7.7) k/uL Lymphocytes # Not Reportable Lymphocytes # (Manual) 6.26 H (1.0-4.8) k/uL Monocytes # Not Reportable Monocytes # (Manual) 0.46 (0-1.0) k/uL Eosinophils # Not Reportable Eosinophils # (Manual) 0.12 (0-0.7) k/uL Basophils # Not Reportable Basophils # (Manual) 0.12 (0-0.2) k/uL Nucleated RBCs 0 (0-0) /100 WBC Manual Slide Review Performed ESR Cancelled Sodium 130 L (137-145) mmol/L Potassium 4.3 (3.5-5.1) mmol/L Chloride 98 (98-107) mmol/L Carbon Dioxide 23 (22-30) mmol/L Anion Gap 9 mmol/L BUN 23 H (9-20) mg/dL Creatinine 0.90 (0.66-1.25) mg/dL Est GFR (CKD-EPI)AfAm >90 (>60 ml/min/1.73 sqM) Est GFR (CKD-EPI)NonAf 78 (>60 ml/min/1.73 sqM) Glucose 97 (74-99) mg/dL Plasma Lactic Acid Leif 0.9 (0.7-2.0) mmol/L Calcium 8.4 (8.4-10.2) mg/dL Total Bilirubin 1.0 (0.2-1.3) mg/dL AST 31 (17-59) U/L ALT 33 (4-49) U/L Alkaline Phosphatase 71 (38-126) U/L C-Reactive Protein <0.5 (<1.0) mg/dL Total Protein 6.5 (6.3-8.2) g/dL Albumin 4.1 (3.5-5.0) g/dL 04/04/24 Range/Units 13:39 WBC (3.8-10.6) k/uL RBC (4.30-5.90) m/uL Hgb (13.0-17.5) gm/dL Hct (39.0-53.0) % MCV (80.0-100.0) fL MCH (25.0-35.0) pg MCHC (31.0-37.0) g/dL RDW (11.5-15.5) % Plt Count (150-450) k/uL MPV Neutrophils % Neutrophils % (Manual) % Lymphocytes % Lymphocytes % (Manual) % Monocytes % Monocytes % (Manual) % Eosinophils % Eosinophils % (Manual) % Basophils % Basophils % (Manual) % Neutrophils # Neutrophils # (Manual) (1.3-7.7) k/uL Lymphocytes # Lymphocytes # (Manual) (1.0-4.8) k/uL Monocytes # Monocytes # (Manual) (0-1.0) k/uL Eosinophils # Eosinophils # (Manual) (0-0.7) k/uL Basophils # Basophils # (Manual) (0-0.2) k/uL Nucleated RBCs (0-0) /100 WBC Manual Slide Review ESR >130 H Sodium (137-145) mmol/L Potassium (3.5-5.1) mmol/L Chloride (98-107) mmol/L Carbon Dioxide (22-30) mmol/L Anion Gap mmol/L BUN (9-20) mg/dL Creatinine (0.66-1.25) mg/dL Est GFR (CKD-EPI)AfAm (>60 ml/min/1.73 sqM) Est GFR (CKD-EPI)NonAf (>60 ml/min/1.73 sqM) Glucose (74-99) mg/dL Plasma Lactic Acid Leif (0.7-2.0) mmol/L Calcium (8.4-10.2) mg/dL Total Bilirubin (0.2-1.3) mg/dL AST (17-59) U/L ALT (4-49) U/L Alkaline Phosphatase (38-126) U/L C-Reactive Protein (<1.0) mg/dL Total Protein (6.3-8.2) g/dL Albumin (3.5-5.0) g/dL - Radiology Data Radiology results: report reviewed, image reviewed Disposition Clinical Impression: Cellulitis, Ringworm Disposition: HOME SELF-CARE Instructions (If sedation given, give patient instructions): Cellulitis (ED) Additional Instructions: Return to the emergency department with any new, worsening, or concerning symptoms. Take the antibiotic as prescribed for 7 days. Apply the clotrimazole cream twice daily for 1 to 2 weeks. Follow up with your primary care provider in 1-2 days. Prescriptions: Clotrimazole [Clotrimazole AF] 1 applic TOPICAL BID #28 gm Cephalexin [Keflex] 500 mg PO Q6HR 7 Days #28 cap Is patient prescribed a controlled substance at d/c from ED?: No Referrals: Manuel Kim MD [Primary Care Provider] - 1-2 days Time of Disposition: 13:34
[2024-04-04 12:23] LABS: HGB 12.3 gm/dL (13.0-17.5); MCH 30.9 pg (25.0-35.0); MCHC 33.3 g/dL (31.0-37.0); MCV 92.8 fL (80.0-100.0); Mean Platelet Volume 7.7; Platelet Count 203 k/uL (150-450); RBC 3.99 m/uL (4.30-5.90); RDW 15.4 % (11.5-15.5); WBC 11.6 k/uL (3.8-10.6)
[2024-04-04 12:28] LABS: ALT 33 U/L (4-49); African American GFR (CKD) >90 (>60 ml/min/1.73 sqM); Albumin 4.1 g/dL (3.5-5.0); Anion Gap 9 mmol/L; Blood Urea Nitrogen 23 mg/dL (9-20); C Reactive Protein <0.5 mg/dL (<1.0); Calcium 8.4 mg/dL (8.4-10.2); Carbon Dioxide 23 mmol/L (22-30); Chloride 98 mmol/L (98-107); Glucose 97 mg/dL (74-99); Non-African American GFR(CKD) 78 (>60 ml/min/1.73 sqM); Sodium 130 mmol/L (137-145); Total Protein 6.5 g/dL (6.3-8.2)
--- NOTE | 2024-04-04 12:29 | XR ---
EXAMINATION TYPE: XR tibia fibula LT DATE OF EXAM: 04/04/2024 12:21 PM INDICATION: Patient age:Male; 83 years old; Reason for study: Redness and swelling; PHH. COMPARISON: None TECHNIQUE: The left tibia/fibula was examined in AP and lateral projections. FINDINGS: No evidence of any acute osseous pathology or joint dislocation. No radiopaque foreign body . No osseous erosions. No periosteal reaction. Mild diffuse soft tissue swelling most pronounced at t he ankle. IMPRESSION: 1. No evidence of acute fracture. 2. Mild soft tissue swelling.
[2024-04-04 12:32] LABS: AST 31 U/L (17-59); Alkaline Phosphatase 71 U/L (38-126); Potassium 4.3 mmol/L (3.5-5.1)
[2024-04-04 13:00] LABS: Basophils # (M) 0.12 k/uL (0-0.2); Nucleated Red Blood Cells 0 /100 WBC (0-0)
[2024-04-04 13:04] LABS: Eosinophils # (M) 0.12 k/uL (0-0.7); Lymphocytes # (M) 6.26 k/uL (1.0-4.8); Monocytes # (M) 0.46 k/uL (0-1.0); Neutrophils # (M) 4.76 k/uL (1.3-7.7); Neutrophils % (M) 41 %; Total Cells Counted 200
[2024-04-04] MEDS: IPRATROPIUM-ALBUTEROL 3 ML NEB INHALATION STA (13:21)
[2024-04-04] MEDS: CLOTRIMAZOLE 1% CREAM 30 GM TUBE TOPICAL ONE (13:43)
[2024-04-04 14:14] VITALS: BP 114/72; PULSE 62; RESP 17; TEMP 97.9
== END 2024-04-04 14:13 | disposition home or self-care (01) ==
LOC: EC 11:29
DX: B35.9 Dermatophytosis, unspecified (principal); Z87.891 Personal history of nicotine dependence
CPT/HCPCS: 36415; 80053; 83605; 85025; 85652; 86140; 94640; 99283

== ENCOUNTER 2024-05-13 16:43 | Observation (INO) | payer MEDICARE ==
[2024-05-13 18:11] LABS: INR 1.1 (<1.2); Partial Thromboplastin Time 28.3 sec (22.0-30.0); Prothrombin Time 12.2 sec (10.0-12.5)
[2024-05-13 18:12] LABS: HCT 36.5 % (39.0-53.0); HGB 12.5 gm/dL (13.0-17.5); MCH 31.4 pg (25.0-35.0); MCHC 34.2 g/dL (31.0-37.0); Mean Platelet Volume 7.6; Platelet Count 253 k/uL (150-450); RBC 3.97 m/uL (4.30-5.90); RDW 13.9 % (11.5-15.5); WBC 10.5 k/uL (3.8-10.6)
[2024-05-13] MEDS: ASPIRIN 81 MG PO STA (18:19)
[2024-05-13 18:21] LABS: ALT 34 U/L (4-49); AST 26 U/L (17-59); African American GFR (CKD) 51 (>60 ml/min/1.73 sqM); Albumin 4.3 g/dL (3.5-5.0); Alkaline Phosphatase 101 U/L (38-126); Anion Gap 12 mmol/L; Blood Urea Nitrogen 48 mg/dL (9-20); Calcium 8.6 mg/dL (8.4-10.2); Carbon Dioxide 24 mmol/L (22-30); Chloride 90 mmol/L (98-107); Glucose 97 mg/dL (74-99); Magnesium 1.8 mg/dL (1.6-2.3); Non-African American GFR(CKD) 44 (>60 ml/min/1.73 sqM); Sodium 126 mmol/L (137-145); Total Protein 6.6 g/dL (6.3-8.2)
--- NOTE | 2024-05-13 18:21 | XR ---
EXAMINATION TYPE: XR chest 2V DATE OF EXAM: 05/13/2024 6:07 PM CLINICAL INDICATION:Male, 83 years old with history of difficulty breathing; [facility] COMPARISON: Chest radiograph 01/05/2024, 01/03/2024 TECHNIQUE: XR chest 2V Frontal view of the chest. FINDINGS: Low lung volumes. There is mild interstitial prominence. No pleural effusions or pneumothor ax. The cardiac silhouette is stable. No acute osseous abnormalities. IMPRESSION: Mild interstitial prominence may relate to developing pulmonary vascular congestion.
[2024-05-13 18:29] LABS: Eosinophils # (M) 0.53 k/uL (0-0.7); Lymphocytes # (M) 4.83 k/uL (1.0-4.8); Monocytes # (M) 0.42 k/uL (0-1.0); Neutrophils # (M) 4.73 k/uL (1.3-7.7); Neutrophils % (M) 45 %; Nucleated Red Blood Cells 0 /100 WBC (0-0); Total Cells Counted 100
[2024-05-13 18:30] LABS: NT-Pro-B-Type Natriuretic Pept 1300 pg/mL
[2024-05-13 18:31] LABS: Poikilocytosis (M) Present
[2024-05-13] MEDS ORDERED: ONDANSETRON 4 MG/2 ML VIAL IVP PRN (19:28)
[2024-05-13] MEDS ORDERED: NALOXONE 0.4 MG/ML 1 ML VIAL IV PRN (19:28)
[2024-05-13] MEDS ORDERED: ALBUTEROL NEBULIZED 2.5 MG/3 ML INHALATION PRN (19:29)
--- NOTE | 2024-05-13 21:19 | ED ---
General Adult HPI - General Chief complaint: Recheck/Abnormal Lab/Rx Stated complaint: hypotension Time Seen by Provider: 05/13/24 19:28 Source: patient, family, RN notes reviewed, old records reviewed Mode of arrival: wheelchair - History of Present Illness Initial comments: Patient is a 83-year-old male who presents emergency department complaining of medication reaction. Patient was prescribed metolazone and has been taking it at home. Has a history of COPD, atrial fibrillation, hypertension. Is on a blood thinner. Was getting blood pressures low over the weekend, lowest reading at 58/34 and patient was slightly disoriented at that time and lightheaded. This past, however on Monday he had a similar incident with low blood pressure and clinically similar symptoms. He has been retaining fluid weight and they have been attempting to adjust his diuretic medications. He is feeling okay at this time with no chest pain however after speaking with his celebrity manager today over the phone he was instructed to come to the emergency department for further evaluation. They have stopped the metolazone. He is still having lower extremity edema. No significant worsening shortness of breath. Presents for further evaluation. He is on blood thinners. - Related Data Home Medications Medication Instructions Recorded Confirmed Albuterol Inhaler [Ventolin Hfa 2 puff INHALATION RT-QID PRN 01/20/21 05/13/24 Inhaler] Latanoprost [Xalatan 0.005%] 1 drop BOTH EYES HS 01/20/21 05/13/24 Finasteride [Proscar] 5 mg PO DAILY 01/22/21 05/13/24 Tamsulosin [Flomax] 0.4 mg PO BID 01/22/21 05/13/24 Apixaban [Eliquis] 5 mg PO BID 01/03/24 05/13/24 Dorzolamide-Timol 2.23%/0.68% 1 drop BOTH EYES BID 01/03/24 05/13/24 [Cosopt] Isosorbide Mononitrate ER [Imdur] 30 mg PO DAILY 01/03/24 05/13/24 Nitroglycerin Sl Tabs [Nitrostat] 0.4 mg SUBLINGUAL Q5M PRN 01/03/24 05/13/24 Valsartan [Diovan] 40 mg PO BID 01/03/24 05/13/24 Albuterol Nebulized [Ventolin 2.5 mg INHALATION RT-QID 04/04/24 05/13/24 Nebulized] Atorvastatin [Lipitor] 40 mg PO HS 04/04/24 05/13/24 Ferrous Sulfate [Feosol] 325 mg PO DAILY 04/04/24 05/13/24 Ranolazine [Ranolazine ER] 500 mg PO Q12HR 04/04/24 05/13/24 Previous Rx's Medication Instructions Recorded Furosemide [Lasix] 40 mg PO BID@0900,1600 #60 tab 01/07/24 Metoprolol Tartrate [Lopressor] 25 mg PO BID #60 tab 01/07/24 Ticagrelor [Brilinta] 90 mg PO BID #60 tab 01/07/24 Clotrimazole [Clotrimazole AF] 1 applic TOPICAL BID #28 gm 04/04/24 Allergies Allergy/AdvReac Type Severity Reaction Status Date / Time No Known Allergies Allergy Verified 05/13/24 17:07 Review of Systems ROS Statement: Those systems with pertinent positive or pertinent negative responses have been documented in the HPI. Review of Systems: CONST: Denies fever EYES: Denies blurry vision ENT: Denies nasal congestion C/V: Denies Chest pain RESP: Denies shortness of breath GI: Denies abdominal pain : Denies dysuria SKIN: Denies rash. MSK: Endorses lower extremity edema NEURO: Denies headache ROS Other: All systems not noted in ROS Statement are negative. Past Medical History Past Medical History: Atrial Fibrillation, COPD, Hypertension, Prostate Disorder History of Any Multi-Drug Resistant Organisms: None Reported Past Surgical History: Heart Catheterization With Stent, Hernia Repair Additional Past Surgical History / Comment(s): abdominal surgery 6 years ago. Past Anesthesia/Blood Transfusion Reactions: No Reported Reaction Past Psychological History: No Psychological Hx Reported Smoking Status: Former smoker Past Alcohol Use History: Occasional Past Drug Use History: None Reported General Exam - General Exam Comments Initial Comments: General: Appears in no acute distress. HEAD: Normal with no signs of head trauma. EYES: PERRLA, EOMI, conjunctiva normal, no discharge. ENT: Hearing grossly intact, normal oropharynx. RESPIRATORY: Clear breath sounds bilaterally. No wheezes, rales, or rhonchi. No hypoxia. No respiratory distress. C/V: Regular rate and rhythm. S1 and S2 auscultated, bilateral lower extremity pitting edema., peripheral pulses 2+ and intact throughout ABD: Abd is soft, nontender, nondistended EXT: Normal range of motion, no obvious deformity SKIN: No rashes or lesions observed on exposed skin. NEURO: Alert and oriented x 4. Course Vital Signs 05/13/24 05/13/24 16:58 18:00 Temperature 97.9 F Pulse Rate 59 L 50 L Respiratory 18 18 Rate Blood Pressure 118/60 120/80 O2 Sat by Pulse 98 95 Oximetry Medical Decision Making - Medical Decision Making Was pt. sent in by a medical professional or institution (, PA, DIRECT CASTING OPERATOR, urgent care, hospital, or long term...) When possible be specific @ -Sent in by cardiology clinic over concern for medication side effects and hypotension. Did you speak to anyone other than the patient for history (EMS, parent, family, police, friend...)? What history was obtained from this source @ -No Did you review nursing and triage notes (agree or disagree)? Why? @ -I reviewed and agree with nursing and triage notes Were old charts reviewed (outside hosp., previous admission, EMS record, old EKG, old radiological studies, urgent care reports/EKG's, long term records)? Report findings @ -Old charts reviewed including medication list as well as previous EKG from December 2023 Differential Diagnosis (chest pain, altered mental status, abdominal pain women, abdominal pain men, vaginal bleeding, weakness, fever, dyspnea, syncope, headache, dizziness, GI bleed, back pain, seizure, CVA, palpatations, mental health, musculoskeletal)? @ -CHF exacerbation, medication side effect, dehydration, ACS. This list is not all inclusive. EKG interpreted by me (3pts min.). @ -As above X-rays interpreted by me (1pt min.). @ -Chest x-ray shows mild pulm vascular congestion. CT interpreted by me (1pt min.). @ -None done U/S interpreted by me (1pt. min.). @ -None done What testing was considered but not performed or refused? (CT, X-rays, U/S, labs)? Why? @ -None What meds were considered but not given or refused? Why? @ -None Did you discuss the management of the patient with other professionals (professionals i.e. , PA, DIRECT CASTING OPERATOR, lab, RT, psych nurse, social sciences lecturer, strategic account manager, teacher, escrow officer, case management rn)? Give summary @ -Discussed with admitting provider, JOHNSON Rodriguez of [facility] who accepted the admission. Was smoking cessation discussed for >3mins.? @ -No Was critical care preformed (if so, how long)? @ -No Were there social determinants of health that impacted care today? How? (Homelessness, low income, unemployed, alcoholism, drug addiction, transportation, low edu. Level, literacy, decrease access to med. care, alf, rehab)? @ -No Was there de-escalation of care discussed even if they declined (Discuss DNR or withdrawal of care, Hospice)? DNR status @ -No What co-morbidities impacted this encounter? (DM, HTN, Smoking, COPD, CAD, Cancer, CVA, ARF, Chemo, Hep., AIDS, mental health diagnosis, sleep apnea, morbid obesity)? @ -CHF, atrial fibrillation Was patient admitted / discharged? Hospital course, mention meds given and route, prescriptions, significant lab abnormalities, going to OR and other pertinent info. @ -Based on patient's presentation and physical exam, presents emergency department for what seems to be medication side effect. Recently prescribed metolazone and noticed that his blood pressures were dropping at home with systolics in the 50s. He was symptomatically at those times as well. He is on blood thinners. He stopped his medication 2 days ago. Mostly feeling improved at this time but presents over concern for continued physical exam findings concerning for CHF as well as after being sent in by his celebrity manager for evaluation. Currently has no complaints. Vital signs within acceptable limits. No obvious exertional dyspnea. Exam remarkable for significant lower extremity edema. We will obtain cardiopulmonary workup. Patient in agreement this plan. Vital signs are within acceptable limits. EKG shows no signs of acute ischemia. Chest x-ray does show mild pulmonary vascular congestion. Laboratory studies remarkable for BNP of 1300. Undetectable troponin. Mild hyponatremia of 126. Remainder the workup unremarkable. At this time, patient is a fall risk at home considering his low blood pressures over the last few days. I recommend observation admission which patient as well as family member were in agreement with. Will continue with home medications. Patient is already on Lasix and I will not be providing IV Lasix at this time and would prefer to just observe him overnight. Will repeat resume all home medications otherwise. They were in agreement this plan. I spoke with JOHNSON Rodriguez of [facility] accepted the admission. Cardiology consulted. Undiagnosed new problem with uncertain prognosis? @ -No Drug Therapy requiring intensive monitoring for toxicity (Heparin, Nitro, Insulin, Cardizem)? @ -No Were any procedures done? @ -No Diagnosis/symptom? @ -CHF, medication side effects Acute, or Chronic, or Acute on Chronic? @ -Acute Uncomplicated (without systemic symptoms) or Complicated (systemic symptoms)? @ -Complicated Side effects of treatment? @ -I believe so yes Exacerbation, Progression, or Severe Exacerbation? @ -No Poses a threat to life or bodily function? How? (Chest pain, [place], [place], pneumonia, PE, COPD, DKA, ARF, appy, cholecystitis, CVA, Diverticulitis, Homicidal, Suicidal, threat to staff... and all critical care pts) @ -Yes, is difficult this hypertension can result in falling or other injuries or cardiac effects. - Lab Data Result diagrams: 05/13/24 17:31 05/13/24 17:31 Lab Results 05/13/24 05/13/24 05/13/24 Range/Units 17:31 17:31 17:31 WBC 10.5 (3.8-10.6) k/uL RBC 3.97 L (4.30-5.90) m/uL Hgb 12.5 L (13.0-17.5) gm/dL Hct 36.5 L (39.0-53.0) % MCV 92.0 (80.0-100.0) fL MCH 31.4 (25.0-35.0) pg MCHC 34.2 (31.0-37.0) g/dL RDW 13.9 (11.5-15.5) % Plt Count 253 (150-450) k/uL MPV 7.6 Neutrophils % (Manual) 45 % Lymphocytes % (Manual) 46 % Monocytes % (Manual) 4 % Eosinophils % (Manual) 5 % Neutrophils # (Manual) 4.73 (1.3-7.7) k/uL Lymphocytes # (Manual) 4.83 H (1.0-4.8) k/uL Monocytes # (Manual) 0.42 (0-1.0) k/uL Eosinophils # (Manual) 0.53 (0-0.7) k/uL Nucleated RBCs 0 (0-0) /100 WBC Manual Slide Review Performed Poikilocytosis (manual Present PT 12.2 (10.0-12.5) sec INR 1.1 (<1.2) APTT 28.3 (22.0-30.0) sec Sodium 126 L (137-145) mmol/L Potassium 4.0 (3.5-5.1) mmol/L Chloride 90 L (98-107) mmol/L Carbon Dioxide 24 (22-30) mmol/L Anion Gap 12 mmol/L BUN 48 H (9-20) mg/dL Creatinine 1.44 H (0.66-1.25) mg/dL Est GFR (CKD-EPI)AfAm 51 (>60 ml/min/1.73 sqM) Est GFR (CKD-EPI)NonAf 44 (>60 ml/min/1.73 sqM) Glucose 97 (74-99) mg/dL Calcium 8.6 (8.4-10.2) mg/dL Magnesium 1.8 (1.6-2.3) mg/dL Total Bilirubin 1.0 (0.2-1.3) mg/dL AST 26 (17-59) U/L ALT 34 (4-49) U/L Alkaline Phosphatase 101 (38-126) U/L Troponin I (0.000-0.034) ng/mL NT-Pro-B Natriuret Pep 1300 pg/mL Total Protein 6.6 (6.3-8.2) g/dL Albumin 4.3 (3.5-5.0) g/dL 05/13/24 Range/Units 17:31 WBC (3.8-10.6) k/uL RBC (4.30-5.90) m/uL Hgb (13.0-17.5) gm/dL Hct (39.0-53.0) % MCV (80.0-100.0) fL MCH (25.0-35.0) pg MCHC (31.0-37.0) g/dL RDW (11.5-15.5) % Plt Count (150-450) k/uL MPV Neutrophils % (Manual) % Lymphocytes % (Manual) % Monocytes % (Manual) % Eosinophils % (Manual) % Neutrophils # (Manual) (1.3-7.7) k/uL Lymphocytes # (Manual) (1.0-4.8) k/uL Monocytes # (Manual) (0-1.0) k/uL Eosinophils # (Manual) (0-0.7) k/uL Nucleated RBCs (0-0) /100 WBC Manual Slide Review Poikilocytosis (manual PT (10.0-12.5) sec INR (<1.2) APTT (22.0-30.0) sec Sodium (137-145) mmol/L Potassium (3.5-5.1) mmol/L Chloride (98-107) mmol/L Carbon Dioxide (22-30) mmol/L Anion Gap mmol/L BUN (9-20) mg/dL Creatinine (0.66-1.25) mg/dL Est GFR (CKD-EPI)AfAm (>60 ml/min/1.73 sqM) Est GFR (CKD-EPI)NonAf (>60 ml/min/1.73 sqM) Glucose (74-99) mg/dL Calcium (8.4-10.2) mg/dL Magnesium (1.6-2.3) mg/dL Total Bilirubin (0.2-1.3) mg/dL AST (17-59) U/L ALT (4-49) U/L Alkaline Phosphatase (38-126) U/L Troponin I <0.012 (0.000-0.034) ng/mL NT-Pro-B Natriuret Pep pg/mL Total Protein (6.3-8.2) g/dL Albumin (3.5-5.0) g/dL - EKG Data -: EKG Interpreted by Me EKG Comments: 12-lead Electrocardiogram Interpretation Note EKG was reviewed and interpreted by myself. 12-lead ECG performed at 1747 is interpreted by me as revealing atrial fibrillation at a rate of 68 beats per minute. [place] is normal. QRS duration is 101 ms, QTc is 435 ms. There were no ST or T wave abnormalities to suggest myocardial ischemia or injury. R wave progression across the precordium was satisfactory. By my interpretation this EKG is non-diagnostic for acute ischemia. Disposition Clinical Impression: CHF (congestive heart failure), Medication side effect Disposition: ADMITTED IP TO THIS HOSP Condition: Stable Time of Disposition: 19:28
[2024-05-13] MEDS: ALBUTEROL NEBULIZED 2.5 MG/3 ML INHALATION SCH (21:43)
[2024-05-13] MEDS: APIXABAN 5 MG TAB PO SCH (22:09)
[2024-05-13] MEDS: TICAGRELOR 90 MG TAB PO SCH (22:13)
[2024-05-13] MEDS: ATORVASTATIN 40 MG TAB PO SCH (22:14)
[2024-05-13] MEDS: METOPROLOL TARTRATE 25 MG TAB PO SCH (22:14)
[2024-05-13] MEDS: VALSARTAN 40 MG TAB PO SCH (22:14)
[2024-05-13] MEDS: TAMSULOSIN 0.4 MG CAP.ER.24H PO SCH (22:14)
[2024-05-13] MEDS: RANOLAZINE 500 MG TAB.ER.12H PO SCH (22:14)
[2024-05-14] MEDS: DORZOLAMIDE-TIMOLOL 2.23%/0.68 10ML BTL BOTH EYES SCH (00:05)
[2024-05-14 07:28] VITALS: TEMP 97.4
[2024-05-14 08:28] LABS: MCH 31.2 pg (27.0-32.0); MCHC 34.3 g/dL (32.0-37.0); MCV 90.9 FL (80.0-97.0); Mean Platelet Volume 10.8 FL (9.5-12.2); NRBC Per 100 WBC 0 X 10*3/uL (0.00-0.01); Platelet Count 230 X 10*3/uL (140-440); RBC 3.85 X 10*6/uL (4.40-5.60); RDW 14.1 % (11.5-14.5); WBC 11.15 X 10*3/uL (4.50-10.00)
[2024-05-14] MEDS: FINASTERIDE 5 MG TAB PO SCH (08:32)
[2024-05-14] MEDS: FUROSEMIDE 40 MG TAB PO SCH (08:32)
[2024-05-14] MEDS: ISOSORBIDE MONONITRATE ER 30 MG TAB.ER.24H PO SCH (08:32)
[2024-05-14 09:03] LABS: ALT 36 U/L (10-49); AST 23 U/L (14-35); Albumin 4.3 g/dL (3.8-4.9); Albumin/Globulin Ratio 2.05 Ratio (1.60-3.17); Alkaline Phosphatase 105 U/L (41-126); BUN/Creat Ratio 30.86 Ratio (12.00-20.00); Blood Urea Nitrogen 43.2 mg/dL (9.0-27.0); Calcium 8.8 mg/dL (8.7-10.3); Carbon Dioxide 25.8 mmol/L (21.6-31.8); Chloride 91 mmol/L (96-109); Globulin 2.1 g/dL (1.6-3.3); Glucose 113 mg/dL (70-110); Potassium 3.7 mmol/L (3.5-5.5); Sodium 129 mmol/L (135-145); Total Bilirubin 0.6 mg/dL (0.3-1.2); Total Protein 6.4 g/dL (6.2-8.2)
[2024-05-14 09:45] LABS: Basophils # (M) 0.11 X 10*3/uL (0.00-0.10); Eosinophils # (M) 0 X 10*3/uL (0.04-0.35); Monocytes # (M) 0.45 X 10*3/uL (0.20-1.00); Neutrophils # (M) 4.79 X 10*3/uL (1.80-7.70); Neutrophils % (M) 43 %
--- NOTE | 2024-05-14 10:20 | P.CRDCN ---
History of Present Illness Consult date: 05/14/24 Consult reason: congestive heart failure History of present illness: This is an 83-year-old male patient of Dr. Rashard Martínez with past medical history of coronary artery disease, permanent atrial fibrillation, chronic systolic heart failure, mitral regurgitation. We have been asked to evaluate the patient for CHF, hypotension from diuretics. Patient was last seen in the office on 05/08/2024. At that time, patient was having leg edema, shortness of breath and weight gain. He was already on Lasix 40 mg twice daily and metolazone 5 mg daily was added. Daughter was instructed that if patient drops close to 10 pounds to stop the metolazone. Also electrolytes and BNP were ordered for 1 week. Patient's blood pressure was running low at home running in the 70s and 80s systolics and diuretics were instructed to be held and come into the hospit al for further evaluation. Patient has less edema since last office visit and his breathing is stable. Blood pressure is now 117/67, heart rate 64, pulse ox 97% on room air and has been afebrile. Metolazone has been held and patient maintained on his home dose of Lasix 40 mg twice daily. EKG: Atrial fibrillation with ventricular rate of 68 bpm Chest x-ray: Mild interstitial prominence may relate to developing pulmonary vascular congestion. Laboratory studies: WBC 11.1, hemoglobin 12, sodium 129, potassium 3.7, chloride 91, CO2 25, BUN 43, creatinine 1.4. Glucose 113. Troponin negative x 1. proBNP 1300. Home cardiac medications: Eliquis 5 mg twice daily, atorvastatin 40 mg at bedtime, Lasix 40 mg twice daily, Imdur 30 mg daily, Lopressor 25 mg twice daily, Nitrostat as needed, metolazone 5 mg daily, Ranexa 500 mg every 12 hours, Brilinta 90 mg twice daily, valsartan 40 mg twice daily. Stress Cardiolite performed in the office on 12/27/2023 revealed inconclusive EKG part of the stress test due to baseline EKG abnormalities. Abnormal nuclear scan showing ischemia in the LAD distribution. Echocardiogram performed in the office 07/05/2023 revealed EF of 50 to 55%, moderate to severe mitral regurgitation, moderate tricuspid regurgitation, mildly increased pulmonary artery systolic pressure. Review Of Systems: At the time of my exam: CONSTITUTIONAL: Denies fever or chills. HEENT: Denies blurred vision, vision changes, or eye pain. Denies hemoptysis CARDIOVASCULAR: Denies chest pain. Denies orthopnea. Denies PND. Denies palpitations RESPIRATORY: Denies shortness of breath. GASTROINTESTINAL: Denies abdominal pain. Denies nausea or vomiting. HEMATOLOGIC: Denies bleeding disorders. GENITOURINARY: Denies any blood in urine. SKIN: Denies puritis. Denies rash. Physical examination: Gen: This is an 83-year-old male in no acute distress. VS: reviewed HEENT: Head is atraumatic, normocephalic. Pupils equal, round. Sclerae is anicteric. NECK: Supple. No JVD. LUNGS: Clear to auscultation. No wheezes or rhonchi. No intercostal retractions. HEART: Regular rate and rhythm. Systolic murmur at the apex. ABDOMEN: Soft No tenderness. EXTREMITIES: Mild pedal edema. No calf tenderness. NEUROLOGICAL: Patient is awake, alert and oriented x3. Assessment: Chronic systolic heart failure Hypotension secondary to diuretics Acute kidney injury Coronary artery disease Permanent atrial fibrillation Mitral regurgitation Plan: Resume patient's home cardiac medications, hold metolazone Monitor blood pressure closely Recheck BMP further recommendations to follow based upon clinical course Thank you kindly for this consultation. Nurse practitioner note has been reviewed, I agree with documented findings and plan of care. Patient was seen and examined. 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 History of Any Multi-Drug Resistant Organisms: None Reported Past Surgical History: Heart Catheterization With Stent, Hernia Repair Additional Past Surgical History / Comment(s): abdominal surgery 6 years ago. Past Anesthesia/Blood Transfusion Reactions: No Reported Reaction Date of Last Stent Placement:: 01/06/2024 Past Psychological History: No Psychological Hx Reported Smoking Status: Former smoker Past Alcohol Use History: Occasional Past Drug Use History: None Reported Medications and Allergies Home Medications Medication Instructions Recorded Confirmed Type Albuterol Inhaler [Ventolin Hfa 2 puff INHALATION RT-QID PRN 01/20/21 05/13/24 History Inhaler] Latanoprost [Xalatan 0.005%] 1 drop BOTH EYES HS 01/20/21 05/13/24 History Finasteride [Proscar] 5 mg PO DAILY 01/22/21 05/13/24 History Tamsulosin [Flomax] 0.4 mg PO BID 01/22/21 05/13/24 History Apixaban [Eliquis] 5 mg PO BID 01/03/24 05/13/24 History Dorzolamide-Timol 2.23%/0.68% 1 drop BOTH EYES BID 01/03/24 05/13/24 History [Cosopt] Isosorbide Mononitrate ER [Imdur] 30 mg PO DAILY 01/03/24 05/13/24 History Nitroglycerin Sl Tabs [Nitrostat] 0.4 mg SUBLINGUAL Q5M PRN 01/03/24 05/13/24 History Valsartan [Diovan] 40 mg PO BID 01/03/24 05/13/24 History Furosemide [Lasix] 40 mg PO BID@0900,1600 #60 tab 01/07/24 05/13/24 Rx Metoprolol Tartrate [Lopressor] 25 mg PO BID #60 tab 01/07/24 05/13/24 Rx Ticagrelor [Brilinta] 90 mg PO BID #60 tab 01/07/24 05/13/24 Rx Albuterol Nebulized [Ventolin 2.5 mg INHALATION RT-QID 04/04/24 05/13/24 History Nebulized] Atorvastatin [Lipitor] 40 mg PO HS 04/04/24 05/13/24 History Clotrimazole [Clotrimazole AF] 1 applic TOPICAL BID #28 gm 04/04/24 05/13/24 Rx Ferrous Sulfate [Feosol] 325 mg PO DAILY 04/04/24 05/13/24 History Ranolazine [Ranolazine ER] 500 mg PO Q12HR 04/04/24 05/13/24 History Allergies Allergy/AdvReac Type Severity Reaction Status Date / Time No Known Allergies Allergy Verified 05/13/24 17:07 Physical Exam Vitals: Vital Signs Temp Pulse Pulse Resp BP BP BP 05/14/24 07:15 97.4 F L 64 18 117/67 05/14/24 02:00 97.7 F 56 L 16 109/65 05/13/24 23:01 97.5 F L 68 18 138/73 05/13/24 22:41 65 18 119/61 05/13/24 22:00 71 16 05/13/24 21:51 69 05/13/24 21:48 65 05/13/24 21:43 70 05/13/24 21:00 66 18 98/59 05/13/24 20:00 64 20 112/68 05/13/24 18:00 50 L 18 120/80 05/13/24 16:58 97.9 F 59 L 18 118/60 Pulse Ox 05/14/24 07:15 97 05/14/24 02:00 99 05/13/24 23:01 98 05/13/24 22:41 97 05/13/24 22:00 98 05/13/24 21:51 05/13/24 21:48 05/13/24 21:43 05/13/24 21:00 95 05/13/24 20:00 98 05/13/24 18:00 95 05/13/24 16:58 98 Intake and Output 05/13/24 05/14/24 05/14/24 22:59 06:59 14:59 Intake Total 240 Balance 240 Intake: Oral 240 Other: Voiding Method Toilet # Voids 1 Weight 95.254 kg 94.8 kg Results 05/14/24 03:36 05/14/24 03:36 Cardiac Enzymes 05/13/24 05/13/24 Range/Units 17:31 17:31 AST 26 (17-59) U/L Troponin I <0.012 (0.000-0.034) ng/mL Coagulation 05/13/24 Range/Units 17:31 PT 12.2 (10.0-12.5) sec APTT 28.3 (22.0-30.0) sec CBC 05/13/24 Range/Units 17:31 WBC 10.5 (3.8-10.6) k/uL RBC 3.97 L (4.30-5.90) m/uL Hgb 12.5 L (13.0-17.5) gm/dL Hct 36.5 L (39.0-53.0) % Plt Count 253 (150-450) k/uL Comprehensive Metabolic Panel 05/13/24 Range/Units 17:31 Sodium 126 L (137-145) mmol/L Potassium 4.0 (3.5-5.1) mmol/L Chloride 90 L (98-107) mmol/L Carbon Dioxide 24 (22-30) mmol/L BUN 48 H (9-20) mg/dL Creatinine 1.44 H (0.66-1.25) mg/dL Glucose 97 (74-99) mg/dL Calcium 8.6 (8.4-10.2) mg/dL AST 26 (17-59) U/L ALT 34 (4-49) U/L Alkaline Phosphatase 101 (38-126) U/L Total Protein 6.6 (6.3-8.2) g/dL Albumin 4.3 (3.5-5.0) g/dL Current Medications Generic Name Dose Route Start Last Admin Trade Name Freq PRN Reason Stop Dose Admin Albuterol Sulfate 2.5 mg 05/13/24 19:29 Albuterol Nebulized 2.5 Mg/3 Ml INHALATION RT-QID PRN Shortness Of Breath Albuterol Sulfate 2.5 mg 05/13/24 20:00 05/13/24 21:43 Albuterol Nebulized 2.5 Mg/3 Ml INHALATION 2.5 mg RT-QID HARVEY Administration Apixaban 5 mg 05/13/24 21:00 05/13/24 22:09 Apixaban 5 Mg Tab PO 5 mg BID HARVEY Administration Protocol Atorvastatin Calcium 40 mg 05/13/24 21:00 05/13/24 22:14 Atorvastatin 40 Mg Tab PO 40 mg HS HARVEY Administration Dorzolamide/Timolol 1 drops 05/13/24 21:00 05/14/24 00:05 Dorzolamide-Timolol 2.23%/0.68 10ml Btl BOTH EYES Not Given BID HARVEY Finasteride 5 mg 05/14/24 09:00 Finasteride 5 Mg Tab PO DAILY HARVEY Furosemide 40 mg 05/14/24 09:00 Furosemide 40 Mg Tab PO BID@0900,1600 [facility] Isosorbide Mononitrate 30 mg 05/14/24 09:00 Isosorbide Mononitrate Er 30 Mg Tab.Er.24h PO DAILY [facility] Metoprolol Tartrate 25 mg 05/13/24 21:00 05/13/24 22:14 Metoprolol Tartrate 25 Mg Tab PO 25 mg BID HARVEY Administration Naloxone HCl 0.2 mg 05/13/24 19:28 Naloxone 0.4 Mg/Ml 1 Ml Vial IV Q2M PRN Opioid Reversal Ondansetron HCl 4 mg 05/13/24 19:28 Ondansetron 4 Mg/2 Ml Vial IVP Q8HR PRN Nausea And Vomiting Ranolazine 500 mg 05/13/24 21:00 05/13/24 22:14 Ranolazine 500 Mg Tab.Er.12h PO 500 mg Q12HR HARVEY Administration Tamsulosin HCl 0.4 mg 05/13/24 21:00 05/13/24 22:14 Tamsulosin 0.4 Mg Cap.Er.24h PO 0.4 mg BID HARVEY Administration Ticagrelor 90 mg 05/13/24 21:00 05/13/24 22:13 Ticagrelor 90 Mg Tab PO 90 mg BID HARVEY Administration Valsartan 40 mg 05/13/24 21:00 05/13/24 22:14 Valsartan 40 Mg Tab PO 40 mg BID HARVEY Administration Intake and Output 05/13/24 05/14/24 05/14/24 22:59 06:59 14:59 Intake Total 240 Balance 240 Intake: Oral 240 Other: Voiding Method Toilet # Voids 1 Weight 95.254 kg 94.8 kg 05/13/24 17:31 05/13/24 17:31
[2024-05-14 14:16] VITALS: BP 103/50; PULSE 52; RESP 16
--- NOTE | 2024-05-14 15:37 | P.HPIM ---
History of Present Illness H&P Date: 05/14/24 This is a pleasant 83-year-old male who presented to the emergency department with family as patient was contacted from cardiology office regarding low blood pressures and instructed by cardiology to go to the ER for further evaluation. Patient was recently started on metolazone last week by bumboater Dr. Martínez and per daughter who helps care for her father at the bedside reported he took his first dose on Monday and started experiencing symptoms such as dizziness, visual disturbance, lightheadedness, low blood pressure readings. Patient did take next days dose and started experiencing the same things and daughter held the medication. Patient does have outpatient home care visiting nurses and was evaluated by the nurse on Monday morning and information was relayed to the cardiology office and cardiology later called the patient and family instructing them to go to the ER for further evaluation. Patient reports symptoms have resolved and patient has not been taking metolazone in 2 days. Patient and family were told he would be given IV diuresis for CHF exacerbation. On exam patient does not appear to be extremely overloaded with minimal swelling noted to lower extremities of which daughter reports that is chronic and he chronically has shortness of breath that has been no worse. Patient reports to feeling well and would like to go home. Patient evaluated by cardiology this morning had repeat labs as initial sodium yesterday to the ER was noted to be 126 with a creatinine of 1.44. Repeat labs today show a sodium of 129 with a potassium of 3.7 and creatinine is stable at 1.4. Troponin was negative and BNP was minimally elevated at 1300. Patient expressing the desire to go home. And will likely discharge home today. Vital signs are stable, chest x-ray showed mild interstitial prominence that may relate to developing pulmonary vascular congestion although patient is 94% on room air, EKG showed A-fib rate controlled. Patient was admitted under observation for cardiology evaluation with concerns of medication side effects and acute CHF exacerbation. REVIEW OF SYSTEMS: CONSTITUTIONAL: No fever, no malaise, no fatigue. HEENT: No recent visual problems or hearing problems. Denied any sore throat. CARDIOVASCULAR: No chest pain, orthopnea, PND, no palpitations, no syncope. PULMONARY: No shortness of breath, no cough, no hemoptysis. GASTROINTESTINAL: No diarrhea, no nausea, no vomiting, no abdominal pain. NEUROLOGICAL: No headaches, no weakness, no numbness. HEMATOLOGICAL: Denies any bleeding or petechiae. GENITOURINARY: Denies any burning micturition, frequency, or urgency. MUSCULOSKELETAL/RHEUMATOLOGICAL: Denies any joint pain, swelling, or any muscle pain. ENDOCRINE: Denies any polyuria or polydipsia. The rest of the 14-point review of systems is negative. PHYSICAL EXAMINATION: GENERAL: The patient is alert and oriented x3, not in any acute distress. Well developed, well nourished. Obese, elderly appearing HEENT: Pupils are round and equally reacting to light. EOMI. No scleral icterus. No conjunctival pallor. Normocephalic, atraumatic. No pharyngeal erythema. No thyromegaly. CARDIOVASCULAR: S1 and S2 muffled PULMONARY: Chest is clear to auscultation, no wheezing or crackles. ABDOMEN: Soft, obese, nontender, nondistended, normoactive bowel sounds. No palpable organomegaly. MUSCULOSKELETAL: No joint swelling or deformity. EXTREMITIES: No cyanosis, clubbing, or pedal edema. Mild lower extremity swelling, nonpitting NEUROLOGICAL: Gross neurological examination did not reveal any focal deficits. SKIN: No rashes. 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 Cardiology office instructed family to bring the patient for further evaluation and IV diuresis for possible CHF exacerbation Patient does not appear to be extremely volume overloaded and had been resumed on normal dosing. Patient was having some side effects from metolazone which has been discontinued and side effects have resolved Creatinine mildly elevated at 1.4 likely secondary to diuretics and recommend to hold this evening's dose of Lasix and resume tomorrow with follow-up labs in the next few days Sodium level found to be 129 today and recommend repeat labs in the next few days. Continue with fluid restrictions and low-sodium diet Elevate lower extremities while at rest and use compression stockings or Javon wraps if having lower extremity swelling Patient reports to feeling well and would like to go home. Recommend follow-up with primary care provider as well as cardiology in the outpatient setting. Continue holding metolazone for now Patient will be discharged home later this afternoon. The impression and plan of care has been dictated by Rosio Xiong, Nurse Practitioner as directed. Dr. Kyle MD I have performed a hPatient reports to feeling wellistory and examination and MDM of this patient, discussed the same with the dictator, and agree with the dictator's assessment and plan as written ,documented as a scribe. Based on total visit time, I have performed more than 50% of the visit. Past Medical History Past Medical History: Atrial Fibrillation, Cancer, Heart Failure, COPD, Hyp ertension, Prostate Disorder Additional Past Medical History / Comment(s): Lymphoma/Leukemia diagnosed in 2019 not undergoing treatment. History of Any Multi-Drug Resistant Organisms: None Reported Past Surgical History: Heart Catheterization With Stent, Hernia Repair Additional Past Surgical History / Comment(s): abdominal surgery 6 years ago. Past Anesthesia/Blood Transfusion Reactions: No Reported Reaction Date of Last Stent Placement:: 01/06/2024 Past Psychological History: No Psychological Hx Reported Smoking Status: Former smoker Past Alcohol Use History: Occasional Past Drug Use History: None Reported Medications and Allergies Home Medications Medication Instructions Recorded Confirmed Type Albuterol Inhaler [Ventolin Hfa 2 puff INHALATION RT-QID PRN 01/20/21 05/13/24 History Inhaler] Latanoprost [Xalatan 0.005%] 1 drop BOTH EYES HS 01/20/21 05/13/24 History Finasteride [Proscar] 5 mg PO DAILY 01/22/21 05/13/24 History Tamsulosin [Flomax] 0.4 mg PO BID 01/22/21 05/13/24 History Apixaban [Eliquis] 5 mg PO BID 01/03/24 05/13/24 History Dorzolamide-Timol 2.23%/0.68% 1 drop BOTH EYES BID 01/03/24 05/13/24 History [Cosopt] Isosorbide Mononitrate ER [Imdur] 30 mg PO DAILY 01/03/24 05/13/24 History Nitroglycerin Sl Tabs [Nitrostat] 0.4 mg SUBLINGUAL Q5M PRN 01/03/24 05/13/24 History Valsartan [Diovan] 40 mg PO BID 01/03/24 05/13/24 History Furosemide [Lasix] 40 mg PO BID@0900,1600 #60 tab 01/07/24 05/13/24 Rx Metoprolol Tartrate [Lopressor] 25 mg PO BID #60 tab 01/07/24 05/13/24 Rx Ticagrelor [Brilinta] 90 mg PO BID #60 tab 01/07/24 05/13/24 Rx Albuterol Nebulized [Ventolin 2.5 mg INHALATION RT-QID 04/04/24 05/13/24 History Nebulized] Atorvastatin [Lipitor] 40 mg PO HS 04/04/24 05/13/24 History Clotrimazole [Clotrimazole AF] 1 applic TOPICAL BID #28 gm 04/04/24 05/13/24 Rx Ferrous Sulfate [Feosol] 325 mg PO DAILY 04/04/24 05/13/24 History Ranolazine [Ranolazine ER] 500 mg PO Q12HR 04/04/24 05/13/24 History Allergies Allergy/AdvReac Type Severity Reaction Status Date / Time No Known Allergies Allergy Verified 05/13/24 17:07 Physical Exam Vitals: Vital Signs Temp Pulse Pulse Resp BP BP BP 05/14/24 08:30 64 05/14/24 08:18 64 05/14/24 07:15 97.4 F L 64 18 117/67 05/14/24 02:00 97.7 F 56 L 16 109/65 05/13/24 23:01 97.5 F L 68 18 138/73 05/13/24 22:41 65 18 119/61 05/13/24 22:00 71 16 05/13/24 21:51 69 05/13/24 21:48 65 05/13/24 21:43 70 05/13/24 21:00 66 18 98/59 05/13/24 20:00 64 20 112/68 05/13/24 18:00 50 L 18 120/80 05/13/24 16:58 97.9 F 59 L 18 118/60 Pulse Ox 05/14/24 08:30 05/14/24 08:18 05/14/24 07:15 97 05/14/24 02:00 99 05/13/24 23:01 98 05/13/24 22:41 97 05/13/24 22:00 98 05/13/24 21:51 05/13/24 21:48 05/13/24 21:43 05/13/24 21:00 95 05/13/24 20:00 98 05/13/24 18:00 95 05/13/24 16:58 98 Intake and Output 05/13/24 05/14/24 05/14/24 22:59 06:59 14:59 Intake Total 240 118 Balance 240 118 Intake: Oral 240 118 Other: Voiding Method Toilet # Voids 1 Weight 95.254 kg 94.8 kg Results CBC & Chem 7: 05/14/24 03:36 05/14/24 03:36 Labs: Abnormal Lab Results - Last 24 Hours (Table) 05/13/24 05/13/24 05/14/24 Range/Units 17:31 17:31 03:36 WBC 11.15 H (4.50-10.00) X 10*3/uL RBC 3.97 L 3.85 L (4.30-5.90) m/uL Hgb 12.5 L 12.0 L (13.0-17.5) gm/dL Hct 36.5 L 35.0 L (39.0-53.0) % Lymphocytes # (Manual) 4.83 H 5.80 H (1.0-4.8) k/uL Eosinophils # (Manual) 0 L (0.04-0.35) X 10*3/uL Basophils # (Manual) 0.11 H (0.00-0.10) X 10*3/uL Sodium 126 L (137-145) mmol/L Chloride 90 L (98-107) mmol/L Anion Gap (4.00-12.00) mmol/L BUN 48 H (9-20) mg/dL Creatinine 1.44 H (0.66-1.25) mg/dL Est GFR (CKD-EPI) (>=60) BUN/Creatinine Ratio (12.00-20.00) Ratio Glucose (70-110) mg/dL 05/14/24 Range/Units 03:36 WBC (4.50-10.00) X 10*3/uL RBC (4.30-5.90) m/uL Hgb (13.0-17.5) gm/dL Hct (39.0-53.0) % Lymphocytes # (Manual) (1.0-4.8) k/uL Eosinophils # (Manual) (0.04-0.35) X 10*3/uL Basophils # (Manual) (0.00-0.10) X 10*3/uL Sodium 129 L (137-145) mmol/L Chloride 91 L (98-107) mmol/L Anion Gap 12.20 H (4.00-12.00) mmol/L BUN 43.2 H (9-20) mg/dL Creatinine (0.66-1.25) mg/dL Est GFR (CKD-EPI) 50 L (>=60) BUN/Creatinine Ratio 30.86 H (12.00-20.00) Ratio Glucose 113 H (70-110) mg/dL Thrombosis Risk Factor Assmnt - DVT/VTE Prophylaxis DVT/VTE Prophylaxis: Mechanical Prophylaxis ordered - Choose All That Apply Any of the Below Risk Factors Present?: Yes Each Factor Represents 1 point: Obesity (BMI >25) Other Risk Factors: Yes Each Risk Factor Represents 3 Points: Age 75 years or older Other congenital or acquired thrombophilia - If yes, enter type in comment: No Thrombosis Risk Factor Assessment Total Risk Factor Score: 4 Thrombosis Risk Factor Assessment Level: Moderate Risk Assessment and Plan Time with Patient: Greater than 30
--- NOTE | 2024-05-14 15:41 | P.DS ---
Providers Date of admission: 05/13/24 19:29 Expected date of discharge: 05/14/24 Attending physician: Carey Diggs Consults: 05/13/24 19:28 Consult Physician Routine Consulting Provider: [facility] Consult Reason/Comments: chf, hypotension suspected from diuretic Do you want consulting provider notified?: Yes Primary care physician: Manuel Kim Hospital Course: Final diagnosis Chronic congestive heart failure, systolic dysfunction, not in exacerbation Hypotension likely secondary to metolazone with side effects including visual disturbances, dizziness, lightheadedness, resolved metolazone was discontinued Obesity with a BMI of 33.7 Hyponatremia, hypervolemic, likely secondary to diuretic use Acute kidney injury, ATN secondary to diuretic use History of atrial fibrillation, currently rate controlled History of lymphoma/leukemia diagnosed in 2019, 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 Patient will follow-up with Dr. Kim in the outpatient setting upon discharge. Patient is to continue with holding metolazone and resuming oral Lasix tomorrow with outpatient follow-up with cardiology as scheduled. Total time taken is greater than 35 minutes. Hospital course This is a 83-year-old male who was recently admitted with concerns of possible medication effect secondary to metolazone. Patient was at home with family reporting symptoms of dizziness, lightheadedness, hypotension after taking 1-2 doses of metolazone. Visiting nurse evaluated the patient on Monday and reported the findings with low blood pressure readings to cardiology and was instructed by cardiology later in the afternoon to come to the ER for further evaluation. Patient was admitted under observation with cardiology on consult. Sodium was noted to be slightly low at 126 initially although improved at 129. Metolazone has been discontinued and patient reports to feeling improved. Recommend follow-up labs in the next few days to monitor kidney functions and electrolytes and has been cleared by cardiology for discharge home with close outpatient follow-up. Please refer to cardiology notes for further HPI. Patient reports to feeling well and denies any other further symptoms. Recommend repeat labs and a prescription was also provided for this in the next few days. Currently no reports of chest pain, shortness of breath, or palpitations. Patient is afebrile. No reports of nausea or vomiting and patient is tolerating diet. Patient will be discharged home today. High risk for readmissions given patient's significant comorbidities. Physical exam: Gen: This is a 83-year-old male who is awake, alert and oriented x 3, well- developed, well-nourished, elderly appearing, obese HEENT: Head is atraumatic, normocephalic. Pupils equal, round. Sclerae is anicteric. NECK: Supple. No JVD. No lymphadenopathy. No thyromegaly. LUNGS: Diminished breath sounds bilaterally otherwise clear to auscultation. No wheezes or rhonchi. No intercostal retractions. HEART: S1, S2 are muffled ABDOMEN: Soft. Obese. Bowel sounds are present. No masses. No tenderness. EXTREMITIES: No pedal edema. No calf tenderness. Mild lower extremity edema noted bilaterally, nonpitting NEUROLOGICAL: Patient is awake, alert and oriented x3. Cranial nerves 2 through 12 are grossly intact. Please refer to medication reconciliation sheet for a list of medications. The impression and plan of care has been dictated by Rosio Xiong, Nurse Practitioner as directed. Dr. Kyle MD I have performed a history and examination and MDM of this patient, discussed the same with the dictator, and agree with the dictator's assessment and plan as written ,documented as a scribe. Based on total visit time, I have performed more than 50% of the visit. Patient Condition at Discharge: Stable Plan - Discharge Summary Discharge Rx Participant: No New Discharge Prescriptions: Continue Tamsulosin [Flomax] 0.4 mg PO BID Finasteride [Proscar] 5 mg PO DAILY Isosorbide Mononitrate ER [Imdur] 30 mg PO DAILY Dorzolamide-Timol 2.23%/0.68% [Cosopt] 1 drop BOTH EYES BID Apixaban [Eliquis] 5 mg PO BID Clotrimazole [Clotrimazole AF] 1 applic TOPICAL BID #28 gm Albuterol Nebulized [Ventolin Nebulized] 2.5 mg INHALATION RT-QID Ranolazine [Ranolazine ER] 500 mg PO Q12HR Albuterol Inhaler [Ventolin Hfa Inhaler] 2 puff INHALATION RT-QID PRN PRN Reason: Shortness Of Breath Latanoprost [Xalatan 0.005%] 1 drop BOTH EYES HS Valsartan [Diovan] 40 mg PO BID Nitroglycerin Sl Tabs [Nitrostat] 0.4 mg SUBLINGUAL Q5M PRN PRN Reason: Chest Pain Ticagrelor [Brilinta] 90 mg PO BID #60 tab Furosemide [Lasix] 40 mg PO BID@0900,1600 #60 tab Metoprolol Tartrate [Lopressor] 25 mg PO BID #60 tab Ferrous Sulfate [Feosol] 325 mg PO DAILY Atorvastatin [Lipitor] 40 mg PO HS Discharge Medication List Albuterol Inhaler [Ventolin Hfa Inhaler] 2 puff INHALATION RT-QID PRN 01/20/21 [History] Latanoprost [Xalatan 0.005%] 1 drop BOTH EYES HS 01/20/21 [History] Finasteride [Proscar] 5 mg PO DAILY 01/22/21 [History] Tamsulosin [Flomax] 0.4 mg PO BID 01/22/21 [History] Apixaban [Eliquis] 5 mg PO BID 01/03/24 [History] Dorzolamide-Timol 2.23%/0.68% [Cosopt] 1 drop BOTH EYES BID 01/03/24 [History] Isosorbide Mononitrate ER [Imdur] 30 mg PO DAILY 01/03/24 [History] Nitroglycerin Sl Tabs [Nitrostat] 0.4 mg SUBLINGUAL Q5M PRN 01/03/24 [History] Valsartan [Diovan] 40 mg PO BID 01/03/24 [History] Furosemide [Lasix] 40 mg PO BID@0900,1600 #60 tab 01/07/24 [Rx] Metoprolol Tartrate [Lopressor] 25 mg PO BID #60 tab 01/07/24 [Rx] Ticagrelor [Brilinta] 90 mg PO BID #60 tab 01/07/24 [Rx] Albuterol Nebulized [Ventolin Nebulized] 2.5 mg INHALATION RT-QID 04/04/24 [History] Atorvastatin [Lipitor] 40 mg PO HS 04/04/24 [History] Clotrimazole [Clotrimazole AF] 1 applic TOPICAL BID #28 gm 04/04/24 [Rx] Ferrous Sulfate [Feosol] 325 mg PO DAILY 04/04/24 [History] Ranolazine [Ranolazine ER] 500 mg PO Q12HR 04/04/24 [History] Follow up Appointment(s)/Referral(s): Manuel Kim MD [Primary Care Provider] - 1 Week Gera Martínez MD [STAFF PHYSICIAN] - 05/24/24 3:45 pm Ambulatory/Diagnostic Orders: Basic Metabolic Panel [LAB.AMB] Time Frame: 3 Days, Location: None Selected Patient Instructions/Handouts: Heart Failure (DC) Activity/Diet/Wound Care/Special Instructions: Activity limited until follow-up Follow-up with primary care provider on discharge Follow-up with repeat labs in the next few days to monitor kidney functions and sodium level with electrolytes Do not take this evening's dose of Lasix 05/14/2024 and resume again tomorrow at your normal dosing Do not take metolazone!! Continue with heart healthy low-salt diet and elevate lower extremities while at rest, okay to use Javon wrap from the toes up to the knees and/or compression stockings if having increased swelling of the lower extremities Discharge Disposition: HOME SELF-CARE
== END 2024-05-14 14:55 | disposition home or self-care (01) ==
LOC: EC 16:43 → 6NMEDSUR 19:29
PROVIDERS: ADMIT Hospitalist; ATTEND Hospitalist
DX: I11.0 Hypertensive heart disease with heart failure (principal); I50.22 Chronic systolic (congestive) heart failure; I95.9 Hypotension, unspecified; E87.1 Hypo-osmolality and hyponatremia; E87.70 Fluid overload, unspecified; N17.0 Acute kidney failure with tubular necrosis; T50.2X5A Adverse effect of carbonic-anhydrase inhibitors, benzothiadiazides and other diuretics, initial encounter; Z85.72 Personal history of non-Hodgkin lymphomas; I48.21 Permanent atrial fibrillation; I08.1 Rheumatic disorders of both mitral and tricuspid valves; J44.9 Chronic obstructive pulmonary disease, unspecified; I25.10 Atherosclerotic heart disease of native coronary artery without angina pectoris; Z79.01 Long term (current) use of anticoagulants; Z79.02 Long term (current) use of antithrombotics/antiplatelets; Z79.899 Other long term (current) drug therapy; Z87.891 Personal history of nicotine dependence
CPT/HCPCS: 99285; 36415; 94640 ×3; 93005; 83880; 80053 ×2; 83735; 84484; 85025 ×2; 85610; 85730; 71046; G0378 ×2; S0138

== ENCOUNTER 2024-06-02 11:34 | Emergency (ER) | payer MEDICARE ==
[2024-06-02] MEDS ORDERED: SODIUM CHLORIDE 0.9% 500 ML BAG ONE (11:40)
--- NOTE | 2024-07-08 08:43 | XR ---
Site ID [facility] Patient Bogdan Powell ID [id number] EXAMINATION TYPE: XR chest 1V DATE OF EXAM: 06/02/2024 1:30 PM CLINICAL INDICATION: Hypotension COMPARISON: THIS EXAM WAS READ DURING PACS DOWNTIME, NO PRIORS AVAILABLE. TECHNIQUE: XR chest 1V Frontal view of the chest. FINDINGS: Lungs/Pleura: There is no evidence of pleural effusion, focal consolidation, or pneumothorax. Pulmonary vascularity: Unremarkable. Heart/mediastinum: Cardiomediastinal silhouette is enlarged. Musculoskeletal: No acute osseous pathology. IMPRESSION: 1. No acute cardiopulmonary disease/process. 2. Cardiomegaly
== END 2024-06-02 15:30 | disposition home or self-care (01) ==
LOC: EC 11:34
CPT/HCPCS: 71045; 93005; 99285